=== PATIENT | female | born 1950 | race Caucasian/White ===

== ENCOUNTER 2020-01-18 14:10 | Outpatient (CLI) | payer MEDICARE, OTHER, SELFPAY ==
--- NOTE | ~2020-01-18 | CT_ITS ---
EXAMINATION: CT lumbar spine wo con DATE: 01/18/2020 14:34 INDICATION: Chronic low back pain. Lumbar radiculopathy. TECHNIQUE: Computed tomography (CT) of the lumbar spine was performed without intravenous contrast. A utomated exposure control and iterative reconstruction technique were employed. The dose-length produ ct was 997.40 mGy-cm. COMPARISON: CT lumbar spine 07/01/2017 FINDINGS: There is a filter in the infrarenal inferior vena cava. There is 5 degrees dextrocurvature of lumbar spine. There is 4 mm anterolisthesis of L3 on L4. Vertebral body heights are normal. There is moderately decreased disc height at L3-L4 and L5-S1. There are changes of interbody fusion at L4-L 5 with interbody device. There are changes of posterior fusion procedure from L4 to S1 with pedicle s crews. The following disc levels are specifically discussed: L1-L2: The disc does not extend beyond the endplate margin. There is mild bilateral facet joint osteo arthritis. There is no neural foraminal stenosis. There is no central canal stenosis. L2-L3: The disc is bulging. There is moderate bilateral facet joint osteoarthritis. There is mild zoltan ateral neural foraminal stenosis. There is mild central canal stenosis. L3-L4: The disc is bulging. There is severe bilateral facet joint osteoarthritis. There is mild bilat eral neural foraminal stenosis. There is mild central canal stenosis. L4-L5: There is no facet joint hypertrophy. There is no neural foraminal stenosis. There is no centra l canal stenosis. L5-S1: The disc does not extend beyond the endplate margin. There is no facet joint hypertrophy. Ther e is no neural foraminal stenosis. There is no central canal stenosis. IMPRESSION: 1. Moderate lumbar spondylosis, stable from 07/01/2017. 2. Anterior fusion procedure at L4-L5 and posterior fusion procedure from L4 to S1. Reviewed, dictated and finalized at location E.
== END 2020-01-18 14:11 | disposition home or self-care (01) ==
PROVIDERS: PCP Family Medicine; Visit Provider Nurse Practitioner Family
DX: M47.26 Other spondylosis with radiculopathy, lumbar region (principal); Z98.1 Arthrodesis status
CPT/HCPCS: 72131

== ENCOUNTER 2020-06-07 11:45 | Outpatient (CLI) | payer MEDICARE, OTHER, SELFPAY ==
[2020-06-07 12:20] LABS: Hematocrit 38.9 % (37.0-47.0); Hemoglobin 12.3 g/dL (12.0-15.0); Mean Corpuscular HGB Conc 31.6 g/dl (32-36); Mean Corpuscular Hemoglobin 30.1 pg (26-34); Mean Corpuscular Volume 95.1 fl (80-100); Mean Platelet Volume 9.1 fl (7.4-10.4); Platelet Count Result 388 k/mm3 (150-375); Red Blood Count 4.09 M/mm3 (4.2-5.4); Red Cell Distribution Width 12.4 % (11.5-14.5); White Blood Count 5.9 K/mm3 (4.5-10.0)
[2020-06-07 12:31] LABS: Anion Gap 6 mmol/L (8-16); Blood Urea Nitrogen 20 mg/dL (7-17); Calcium 9.8 mg/dL (8.4-10.2); Carbon Dioxide 31 mmol/L (22-30); Chloride 102 mmol/L (98-107); Cholesterol 168 mg/dL (0-200); Estimated Glomerular Filt Rate 55; Glucose 93 mg/dL (65-105); HDL Direct 82 mg/dL; Potassium 4.8 mmol/L (3.4-5.0); Sodium 139 mmol/L (137-145); Triglycerides 135 mg/dL (<150)
[2020-06-07 12:42] LABS: LDL Cholesterol Direct 51 mg/dL
== END 2020-06-07 11:46 | disposition home or self-care (01) ==
PROVIDERS: PCP Family Medicine; Visit Provider Nurse Practitioner Family
DX: I10 Essential (primary) hypertension (principal)
CPT/HCPCS: 36415; 80048; 80061; 84443; 85027

== ENCOUNTER 2020-07-22 13:56 | Outpatient (CLI) | payer MEDICARE, OTHER, SELFPAY ==
[2020-07-22 14:30] LABS: Hemoglobin 11.7 g/dL (12.0-15.0); Mean Corpuscular HGB Conc 31.6 g/dl (32-36); Mean Corpuscular Hemoglobin 30.7 pg (26-34); Mean Corpuscular Volume 97.1 fl (80-100); Platelet Count Result 313 k/mm3 (150-375); Red Blood Count 3.81 M/mm3 (4.2-5.4); Red Cell Distribution Width 12.9 % (11.5-14.5); White Blood Count 5.8 K/mm3 (4.5-10.0)
[2020-07-22 14:41] LABS: Anion Gap 8 mmol/L (8-16); Blood Urea Nitrogen 19 mg/dL (7-17); Calcium 9.2 mg/dL (8.4-10.2); Carbon Dioxide 29 mmol/L (22-30); Chloride 101 mmol/L (98-107); Estimated Glomerular Filt Rate 55; Glucose 98 mg/dL (65-105); Potassium 4.6 mmol/L (3.4-5.0); Sodium 138 mmol/L (137-145)
== END 2020-07-22 13:57 | disposition home or self-care (01) ==
PROVIDERS: PCP Family Medicine; Visit Provider Nurse Practitioner Family
DX: N28.9 Disorder of kidney and ureter, unspecified (principal); R79.89 Other specified abnormal findings of blood chemistry
CPT/HCPCS: 36415; 80048; 85027

== ENCOUNTER 2020-11-24 14:18 | Outpatient (CLI) | payer MEDICARE, OTHER, SELFPAY ==
[2020-11-24 14:47] LABS: Anion Gap 7 mmol/L (8-16); Blood Urea Nitrogen 19 mg/dL (7-17); Calcium 9.2 mg/dL (8.4-10.2); Carbon Dioxide 27 mmol/L (22-30); Chloride 105 mmol/L (98-107); Estimated Glomerular Filt Rate 49; Glucose 117 mg/dL (65-105); Potassium 4.6 mmol/L (3.4-5.0); Sodium 139 mmol/L (137-145)
[2020-11-24 14:50] LABS: Rheumatoid Factor < 12.0 IU/ML (<12)
== END 2020-11-24 14:19 | disposition home or self-care (01) ==
PROVIDERS: PCP Family Medicine; Visit Provider Nurse Practitioner Family
DX: M19.049 Primary osteoarthritis, unspecified hand (principal); N28.9 Disorder of kidney and ureter, unspecified
CPT/HCPCS: 36415; 80048; 86038; 86430

== ENCOUNTER 2021-01-03 15:26 | Outpatient (CLI) | payer MEDICARE, OTHER, SELFPAY ==
[2021-01-03 16:29] LABS: Anion Gap 9 mmol/L (8-16); Blood Urea Nitrogen 22 mg/dL (7-17); Calcium 9.6 mg/dL (8.4-10.2); Carbon Dioxide 24 mmol/L (22-30); Chloride 103 mmol/L (98-107); Estimated Glomerular Filt Rate 49; Glucose 90 mg/dL (65-105); Potassium 5.3 mmol/L (3.4-5.0); Sodium 136 mmol/L (137-145)
== END 2021-01-03 15:27 | disposition home or self-care (01) ==
PROVIDERS: PCP Family Medicine; Visit Provider Nurse Practitioner Family
DX: N28.9 Disorder of kidney and ureter, unspecified (principal)
CPT/HCPCS: 36415; 80048

== ENCOUNTER 2021-04-28 13:59 | Outpatient (CLI) | payer MEDICARE, OTHER, SELFPAY ==
[2021-04-28 14:33] LABS: Anion Gap 9 mmol/L (8-16); Blood Urea Nitrogen 19 mg/dL (7-17); Calcium 9.3 mg/dL (8.4-10.2); Carbon Dioxide 24 mmol/L (22-30); Chloride 104 mmol/L (98-107); Estimated Glomerular Filt Rate 55; Glucose 95 mg/dL (65-110); Potassium 4.6 mmol/L (3.4-5.0); Sodium 137 mmol/L (137-145)
== END 2021-04-28 14:00 | disposition home or self-care (01) ==
LOC: ANHLAB 14:02
PROVIDERS: PCP Family Medicine; Visit Provider Physician Assistant Medical
DX: N28.9 Disorder of kidney and ureter, unspecified (principal)
CPT/HCPCS: 36415; 80048

== ENCOUNTER 2021-08-10 13:44 | Outpatient (CLI) | payer MEDICARE, OTHER, SELFPAY ==
[2021-08-10 14:18] LABS: Anion Gap 8 mmol/L (8-16); Blood Urea Nitrogen 17 mg/dL (7-17); Calcium 9.4 mg/dL (8.4-10.2); Carbon Dioxide 26 mmol/L (22-30); Chloride 103 mmol/L (98-107); Estimated Glomerular Filt Rate 45; Glucose 122 mg/dL (65-110); Potassium 4.3 mmol/L (3.4-5.0); Sodium 137 mmol/L (137-145)
== END 2021-08-10 13:45 | disposition home or self-care (01) ==
LOC: ANHLAB 13:46
PROVIDERS: PCP Family Medicine; Visit Provider Physician Assistant Medical
DX: N28.9 Disorder of kidney and ureter, unspecified (principal)
CPT/HCPCS: 36415; 80048

== ENCOUNTER 2021-09-08 13:50 | Outpatient (CLI) | payer MEDICARE, OTHER, SELFPAY ==
[2021-09-08 14:56] LABS: Anion Gap 4 mmol/L (8-16); Blood Urea Nitrogen 18 mg/dL (7-17); Calcium 9.3 mg/dL (8.4-10.2); Carbon Dioxide 28 mmol/L (22-30); Chloride 102 mmol/L (98-107); Estimated Glomerular Filt Rate 49; Glucose 94 mg/dL (65-110); Potassium 4.8 mmol/L (3.4-5.0); Sodium 134 mmol/L (137-145)
== END 2021-09-08 13:51 | disposition home or self-care (01) ==
PROVIDERS: PCP Family Medicine; Visit Provider Nurse Practitioner Family
DX: N28.9 Disorder of kidney and ureter, unspecified (principal)
CPT/HCPCS: 36415; 80048

== ENCOUNTER 2021-10-10 11:17 | Outpatient (CLI) | payer MEDICARE, OTHER, SELFPAY ==
--- NOTE | ~2021-10-10 | US_ITS ---
US renal BI 10/10/2021 11:42 Procedure: Realtime transabdominal ultrasound of the kidneys and bladder. Indication: Chronic kidney disease Comparison: No prior studies for comparison. Findings: Renal echotexture is normal bilaterally without hydronephrosis, contour deforming mass or r enal calculus. The right kidney measures 10.1 cm and left kidney measures 9.5 cm. Bladder within nor mal limits. Impression: 1: Unremarkable renal ultrasound. No stones, masses or hydronephrosis. Reviewed, dictated and finalized at location A. T BREEDER Impression: 1: Unremarkable renal ultrasound. No stones, masses or hydronephrosis.
[2021-10-10 12:22] LABS: Hematocrit 34.3 % (37.0-47.0); Hemoglobin 10.9 g/dL (12.0-15.0); Mean Corpuscular HGB Conc 31.8 g/dl (32-36); Mean Corpuscular Hemoglobin 29.4 pg (26-34); Mean Corpuscular Volume 92.5 fl (80-100); Mean Platelet Volume 8.9 fl (7.4-10.4); Platelet Count Result 330 k/mm3 (150-375); Red Blood Count 3.71 M/mm3 (4.2-5.4); Red Cell Distribution Width 14.1 % (11.5-14.5)
[2021-10-10 12:32] LABS: Creatinine Urine 209.4 mg/dL
[2021-10-10 12:34] LABS: Albumin Level 4.5 g/dL (3.5-5.1); Anion Gap 8 mmol/L (8-16); Blood Urea Nitrogen 17 mg/dL (7-17); Calcium 8.9 mg/dL (8.4-10.2); Carbon Dioxide 25 mmol/L (22-30); Chloride 100 mmol/L (98-107); Estimated Glomerular Filt Rate 45; Glucose 92 mg/dL (65-110); Phosphorus 4.4 mg/dL (2.5-4.5); Potassium 4.5 mmol/L (3.4-5.0); Sodium 133 mmol/L (137-145)
[2021-10-10 12:38] LABS: Total Protein Urine Random < 5 mg/dL; Ur Ttl Prot Creatinine Ratio < 0.02 mg/mg (0-0.20)
[2021-10-10 12:41] LABS: Complement C3 135 mg/dL (88-165)
[2021-10-10 12:46] LABS: Parathyroid Intact 87.2 pg/mL (7.5-53.5)
[2021-10-10 12:49] LABS: Erythrocyte Sedimentation Rate 34 mm/hr (0-20)
[2021-10-10 14:53] LABS: Add Urine Microscopic? YES; Appearance Urine Clear (Clear); Bilirubin Urine Negative (Negative); Blood Urine Negative (Negative); Color Urine Yellow (Yellow); Glucose Urine UA Negative (Negative); Ketones Urine Trace mg/dL (Negative); Leukocyte Esterase Ur 1+ LEU/UL (Negative); Mucus Urine Rare /lpf; Nitrate Urine Negative (Negative); Protein Urine Negative (Negative); RBC Urine 0-2 /hpf (0-2); Specific Grav Ur 1.025 (1.001-1.035); Squamous Epithelial Cell Urine Rare /hpf (Few); Urobilinogen Urine Negative mg/dL (<2.0); WBC Urine 0-3 /hpf
[2021-10-12 15:58] LABS: Kappa\\Lambda Light Chains 1.39 (0.26-1.65); Lambda Light Chain 12.4 mg/L (5.7-26.3)
[2021-10-13 18:36] LABS: Complement Total CH50 >60 U/mL (31-60)
== END 2021-10-10 11:18 | disposition home or self-care (01) ==
PROVIDERS: PCP Family Medicine; Visit Provider Internal Medicine Nephrology
DX: N18.31 Chronic kidney disease, stage 3a (principal)
CPT/HCPCS: 36415; 76775; 80069; 81001; 82570; 83883; 83970; 84156; 85027; 85652; 86038; 86160; 86162; 86334

== ENCOUNTER 2021-10-12 13:50 | Outpatient (NON) | payer MEDICARE, OTHER, SELFPAY ==
[2021-10-21 16:40] LABS: Creat 24 Hr 1.43 g/24 h (0.50-2.15); Measured Kappa Chains <1.00 mg/dL (<2.00); Measured Lambda Chains <1.00 mg/dL (<2.00); Pro/Creat Ratio 111 mg/g creat (<=114)
[2021-10-24 15:22] LABS: Protein,total, 24 Hr Ur 159 mg/24h
== END 2021-10-12 13:51 | disposition home or self-care (01) ==
PROVIDERS: PCP Family Medicine; Visit Provider Internal Medicine Nephrology
DX: N18.31 Chronic kidney disease, stage 3a (principal)
CPT/HCPCS: 86335

== ENCOUNTER 2021-12-15 13:55 | Outpatient (CLI) | payer MEDICARE, OTHER, SELFPAY ==
[2021-12-15 14:39] LABS: Albumin Level 4.4 g/dL (3.5-5.1); Anion Gap 7 mmol/L (8-16); Blood Urea Nitrogen 20 mg/dL (7-17); Calcium 9.3 mg/dL (8.4-10.2); Carbon Dioxide 27 mmol/L (22-30); Chloride 101 mmol/L (98-107); Estimated Glomerular Filt Rate 45; Glucose 93 mg/dL (65-110); Phosphorus 4.2 mg/dL (2.5-4.5); Potassium 4.4 mmol/L (3.4-5.0); Sodium 135 mmol/L (137-145)
[2021-12-15 15:13] LABS: Creatinine Urine 77.1 mg/dL; Total Protein Urine Random 9 mg/dL; Ur Ttl Prot Creatinine Ratio 0.12 mg/mg (0-0.20)
== END 2021-12-15 13:56 | disposition home or self-care (01) ==
PROVIDERS: PCP Family Medicine; Visit Provider Internal Medicine Nephrology
DX: N18.31 Chronic kidney disease, stage 3a (principal)
CPT/HCPCS: 36415; 80069; 82570; 84156

== ENCOUNTER 2022-11-22 15:26 | Outpatient (CLI) | payer MEDICARE, OTHER, SELFPAY ==
[2022-11-22 16:03] LABS: Hematocrit 31.2 % (37.0-47.0); Hemoglobin 9.1 g/dL (12.0-15.0); Mean Corpuscular HGB Conc 29.2 g/dl (32-36); Mean Corpuscular Hemoglobin 25.1 pg (26-34); Mean Platelet Volume 8.9 fl (7.4-10.4); Platelet Count Result 402 k/mm3 (150-375); Red Blood Count 3.63 M/mm3 (4.2-5.4); Red Cell Distribution Width 15.7 % (11.5-14.5); White Blood Count 5.9 K/mm3 (4.5-10.0)
[2022-11-22 17:05] LABS: Albumin Level 4.5 g/dL (3.5-5.1); Anion Gap 5 mmol/L (8-16); Blood Urea Nitrogen 18 mg/dL (7-17); Calcium 9.6 mg/dL (8.4-10.2); Carbon Dioxide 29 mmol/L (22-30); Chloride 102 mmol/L (98-107); Estimated Glomerular Filt Rate 49; Glucose 88 mg/dL (65-110); Phosphorus 3.8 mg/dL (2.5-4.5); Potassium 4.8 mmol/L (3.4-5.0); Sodium 136 mmol/L (137-145)
[2022-11-22 17:24] LABS: Parathyroid Intact 48.7 pg/mL (7.5-53.5)
[2022-11-22 17:34] LABS: Vitamin D 25 Hydroxy 89.4 ng/mL
[2022-11-22 18:13] LABS: Creatinine Urine 72.4 mg/dL; Total Protein Urine Random 9 mg/dL; Ur Ttl Prot Creatinine Ratio 0.12 mg/mg (0-0.20)
== END 2022-11-22 15:27 | disposition home or self-care (01) ==
LOC: ANHLAB 15:32
PROVIDERS: PCP Family Medicine; Visit Provider Internal Medicine Nephrology
DX: E21.1 Secondary hyperparathyroidism, not elsewhere classified (principal); N28.9 Disorder of kidney and ureter, unspecified; N18.31 Chronic kidney disease, stage 3a
CPT/HCPCS: 36415; 80069; 82306; 82570; 83970; 84156; 85027

== ENCOUNTER 2023-01-21 14:10 | Outpatient (CLI) | payer MEDICARE, OTHER, SELFPAY ==
--- NOTE | ~2023-01-21 | CT_ITS ---
EXAMINATION: CT LE RT wo con DATE: 01/21/2023 14:47 INDICATION: Right knee osteoarthritis. Preop planning. TECHNIQUE: Computed tomography (CT) of the right lower limb was performed without intravenous contras t. Automated exposure control and iterative reconstruction technique were employed. The dose-length p roduct was 1816.99 mGy-cm. COMPARISON: Right knee radiographs 12/06/2022 FINDINGS: The right hip demonstrates normal bone alignment. There is mild right hip osteoarthritis. T he right knee demonstrates an insufficiency fracture of medial tibial plateau with up to 2 mm cortica l depression. There is severe osteoarthritis of medial and lateral compartments and moderate osteoart hritis of patellofemoral compartment. There is a moderate-sized knee joint effusion. There is a moder ate-sized Chase's cyst. IMPRESSION: 1. Severe right knee osteoarthritis. 2. Insufficiency fracture of medial tibial plateau with up to 2 mm cortical depression. 3. Moderate-sized right knee joint effusion. 4. Moderate-sized Chase's cyst. 5. Mild right hip osteoarthritis. Reviewed, dictated and finalized at location A. IMPRESSION: 1. Severe right knee osteoarthritis. 2. Insufficiency fracture of medial tibial plateau with up to 2 mm cortical dep ression. 3. Moderate-sized right knee joint effusion. 4. Moderate-sized Chase's cyst. 5. Mild right hip osteoarthritis.
--- NOTE | 2023-01-21 14:54 | ECG_ITS ---
Measurements Intervals [place] Rate: 81 P: -69 GA: 149 QRS: -5 QRSD: 129 T: 38 QT: 389 QTc: 454 Interpretive Statements SINUS RHYTHM BASELINE ARTIFACT RIGHT BUNDLE BRANCH BLOCK ABNORMAL ECG NO PREVIOUS ECG AVAILABLE FOR COMPARISON Electronically Signed On 01-21-2023 17:17:54 CDT by Rickey Fuentes M.D.
[2023-01-21 15:28] LABS: Hematocrit 31.1 % (37.0-47.0); Hemoglobin 9.2 g/dL (12.0-15.0); Mean Corpuscular HGB Conc 29.6 g/dl (32-36); Mean Corpuscular Hemoglobin 24.7 pg (26-34); Mean Corpuscular Volume 83.4 fl (80-100); Platelet Count Result 429 k/mm3 (150-375); Red Blood Count 3.73 M/mm3 (4.2-5.4); Red Cell Distribution Width 16.1 % (11.5-14.5); White Blood Count 8.4 K/mm3 (4.5-10.0)
[2023-01-21 15:38] LABS: Albumin Level 4.5 g/dL (3.5-5.1); Estimated Glomerular Filt Rate 40; Glucose 94 mg/dL (65-110)
[2023-01-21 16:04] LABS: Hemoglobin A1C 5.3 % (<5.7)
[2023-01-21 16:09] LABS: Cortisol Random 8.25 ug/dL
[2023-01-21 16:20] LABS: Vitamin D 25 Hydroxy 79.4 ng/mL
[2023-01-21 17:19] LABS: Urine Cotinine NEGATIVE
[2023-01-21 22:10] LABS: Creatinine Urine 257.6 mg/dL; Total Protein Urine Random 12 mg/dL; Ur Ttl Prot Creatinine Ratio 0.05 mg/mg (0-0.20)
== END 2023-01-21 14:11 | disposition home or self-care (01) ==
PROVIDERS: Internal Medicine Nephrology; PCP Family Medicine; Visit Provider Orthopaedic Surgery
DX: Z01.812 Encounter for preprocedural laboratory examination (principal); Z01.810 Encounter for preprocedural cardiovascular examination; M17.11 Unilateral primary osteoarthritis, right knee; E78.5 Hyperlipidemia, unspecified; N28.9 Disorder of kidney and ureter, unspecified; R79.89 Other specified abnormal findings of blood chemistry; E87.5 Hyperkalemia; E87.1 Hypo-osmolality and hyponatremia; E21.1 Secondary hyperparathyroidism, not elsewhere classified; N18.31 Chronic kidney disease, stage 3a; I12.9 Hypertensive chronic kidney disease with stage 1 through stage 4 chronic kidney disease, or unspecified chronic kidney disease; M25.461 Effusion, right knee; M71.21 Synovial cyst of popliteal space [Baker], right knee; M16.11 Unilateral primary osteoarthritis, right hip; I45.10 Unspecified right bundle-branch block
CPT/HCPCS: 36415; 73700; 80307; 82040; 82306; 82533; 82565; 82570; 82947; 83036; 84156; 85027; 93005

== ENCOUNTER 2023-03-13 11:29 | Outpatient (CLI) | payer MEDICARE, OTHER, SELFPAY ==
[2023-03-13 12:58] LABS: Basophils Percent Auto 0.6 % (0.2-1.2); Eosinophils Absolute Auto 0.5 K/mm3 (0-0.3); Eosinophils Percent Auto 6.4 % (0-4.4); Hematocrit 34.1 % (37.0-47.0); Hemoglobin 10.2 g/dL (12.0-15.0); Immature Granulocyte Absolute 0.01 K/mm3 (0.00-0.031); Immature Granulocyte Percent A 0.1 % (0-0.5); Lymphocytes Absolute Auto 1.77 K/mm3 (0.9-3.2); Lymphocytes Percent Auto 25.4 % (18.3-44.2); Mean Corpuscular HGB Conc 29.9 g/dl (32-36); Mean Corpuscular Hemoglobin 26.6 pg (26-34); Mean Corpuscular Volume 88.8 fl (80-100); Mean Platelet Volume 8.7 fl (7.4-10.4); Monocytes Absolute Auto 0.7 K/mm3 (0.1-0.6); Monocytes Percent Auto 9.7 % (2.6-8.5); Neutrophils Percent Auto 57.8 % (45.5-73.1); Platelet Count Result 369 k/mm3 (150-375); Red Blood Count 3.84 M/mm3 (4.2-5.4); Red Cell Distribution Width 18.7 % (11.5-14.5)
[2023-03-13 12:59] LABS: Albumin Level 4.5 g/dL (3.5-5.1); Urine Cotinine NEGATIVE
[2023-03-13 13:01] LABS: Sodium 134 mmol/L (137-145)
[2023-03-13 13:02] LABS: Anion Gap 8 mmol/L (8-16); Blood Urea Nitrogen 22 mg/dL (7-17); Calcium 9.3 mg/dL (8.4-10.2); Carbon Dioxide 26 mmol/L (22-30); Chloride 100 mmol/L (98-107); Estimated Glomerular Filt Rate 37; Glucose 95 mg/dL (65-110); Potassium 4.6 mmol/L (3.4-5.0)
[2023-03-13 13:04] LABS: INR 0.9; Partial Thromboplastin Time 26.4 SECONDS (22.3-36.8); Prothrombin Time 12.7 Seconds (11.1-14.7)
[2023-03-13 14:07] LABS: Anisocytosis 1+ (NORMAL); Hypochromasia 1+ (NORMAL); Poikilocytosis 1+ (NORMAL); Schistocytes None Seen (NORMAL)
== END 2023-03-13 11:30 | disposition home or self-care (01) ==
LOC: ANHSURGERY 11:36
PROVIDERS: Anesthesiology; PCP Family Medicine; Visit Provider Orthopaedic Surgery
DX: Z01.818 Encounter for other preprocedural examination (principal); N18.9 Chronic kidney disease, unspecified; M17.11 Unilateral primary osteoarthritis, right knee
CPT/HCPCS: 80048; 80307; 82040; 85025; 85610; 85730; 87081

== ENCOUNTER 2023-04-02 01:40 | Day surgery (SDC) | payer MEDICARE, OTHER, SELFPAY ==
[2023-03-13 11:33] VITALS: BP 116/70; PULSE 84; RESP 20; TEMP 36.6; O2SAT 100; BMI 36.1
--- NOTE | 2023-03-13 11:33 | PC.NURSE ---
PRE-OP INSTRUCTIONS, PLEASE READ CAREFULLY Report to the Outpatient Waiting Room, entrance under the green pavilion located off [facility], at time _0600_ on date _04/02/23_. Planned Procedure Time: _0730_. PACK A SMALL OVERNIGHT BAG AND LEAVE IN THE CAR ALONG WITH YOUR WALKER Time changes happen often and if your time is changed the preop area will call you the afternoon before. - You and your visitor will be asked to self-screen and do not enter if you have any COVID symptoms. - A mask is optional within the hospital at this time. -VISITING HOURS 8AM-8PM Patients may have clear liquids (water, carbonated beverages, clear teas, apple juice) until 3 hours prior to surgery (0430 AM) with a maximum of 20 ounces. - No food from midnight until time of surgery Take the following medications with a SIP of water the morning of surgery: _DILTIAZEM, INHALER, & TRAMADOL IF NEEDED_ DO NOT STOP ANY OF YOUR OTHER PRESCRIPTION MEDICATIONS PRIOR TO SURGERY ?EXCEPT THE FOLLOWING Medications to discontinue per DR. SARKAR - _ASPIRIN 7 DAYS PRIOR TO SURGERY, Date to take last dose 03/25/23_ Medications to discontinue per ANESTHESIA - _MULTIVITAMIN & SUPPLEMENTS 3 DAYS PRIOR TO SURGERY, Date to take last dose 03/29/23_ Please no make-up, nail beninese, hairspray, perfume, deodorant, or body powder the day of surgery. No jewelry (including any body piercings) or valuables the day of surgery, leave them at home. Please take a shower or bath the night before, or the morning of, surgery with an antibacterial soap. Wear comfortable, loose fitting clothing. - Jewelry must be removed prior to entering the operating room. Rings and piercings that are not removed may be cut off. - The hospital will not accept responsibility for valuables. - Please leave all valuables, including medications, at home the day of surgery. If you are going home after surgery, a licensed straddle truck driver must drive you home. - NO public transportation without another adult if you receive anesthesia. - We recommend that an adult stay with you for 24 hours following discharge. - We also recommend that you do not drive, make important decision, drink alcoholic beverages, or take any drugs that were not prescribed by your health care provider for at least 24 hours after your discharge time. Follow any additional instructions given to you from your surgeon. If you or anyone in your household have experienced Covid symptoms in the past week, please notify your surgeon or the nurse liaison at the phone number below for possible testing. Instructions given to _PATIENT__and asked if any additional questions and then verbalized understanding. Patient advised to call surgeon office or pre surgery nurse liaison [phone] if any additional questions.
[2023-04-02] VITALS (17 sets, daily range): BP systolic 96–120; BP diastolic 54–72; PULSE 78–96; RESP 10–20; TEMP 36–37.3; O2SAT 93–98
--- NOTE | ~2023-04-02 | XR_ITS ---
EXAMINATION: [id number] DATE: 04/03/2023 08:26 INDICATION: Total right knee arthroplasty. Postop. TECHNIQUE: 2 views of right knee were obtained. COMPARISON: None. FINDINGS: There is a total right knee arthroplasty with patellar resurfacing in near-anatomic alignme nt. No fracture. There is gas in the soft tissues, consistent with recent surgery. IMPRESSION: 1. Total right knee arthroplasty in near-anatomic alignment. Reviewed, dictated and finalized at location A.
[2023-04-02] MEDS: ACETAMINOPHEN 500 MG TABLET 1000 MG PO ×2 (06:08→17:21)
[2023-04-02] MEDS: LACTATED RINGERS 1,000 ML 30 ML IV CONT ×2 (06:40→10:05)
[2023-04-02] MEDS: TRANEXAMIC ACID 1,000MG/ISO100 1,000 MG/100 ML BAG 200 MG IVPB (06:55)
--- NOTE | 2023-04-02 07:07 | WPDANESEPPF ---
Anes - Initial Pre Proc Eval Procedure: Operation Date: 04/02/23 07:30 Proposed Procedures p Right Custom Total Knee Arthroplasty - Zan Melgoza MD Date/Time: 04/02/23 07:07 Surgeon: Zan Melgoza MD Pre Op Diagnosis: Prim OA Rt Knee Patient Data Age: 72 Gender: F Height: 1.68 m Weight: 100.1 kg Last Vital Signs Temp 36.6 C 03/13/23 11:33 Pulse 84 03/13/23 11:33 Resp 20 03/13/23 11:33 BP 116/70 03/13/23 11:33 Pulse Ox 100 03/13/23 11:33 O2 Del Method Room Air 03/13/23 11:33 Allergies Allergy/AdvReac Type Severity Reaction Status Date / Time prochlorperazine AdvReac Unknown Rash Verified 03/21/23 14:51 atorvastatin [From Lipitor] AdvReac IRREGULAR Verified 03/21/23 14:51 HEAR RATE BETA BLOCKERS AdvReac Unknown BRINGS ON Uncoded 03/13/23 11:54 ASTHMA ATTACKS Home Medications Medication Instructions Recorded Confirmed Type albuterol sulfate 90 mcg/actuation 1 inh inhalation Q4-6H PRN 05/23/20 03/13/23 Rx breath activated powder inhaler shortness of breath #1 ea aspirin 325 mg tablet 325 mg PO DAILY 05/23/20 04/02/23 History diltiazem HCl 240 mg 240 mg PO DAILY #90 caps 03/29/22 04/02/23 Rx capsule,extended release 24 hr, controlled (DILT-XR) lisinopril 20 mg tablet 20 mg PO DAILY #90 tabs 03/29/22 04/02/23 Rx rosuvastatin 20 mg tablet (Crestor) 20 mg PO DAILY #90 tabs 03/29/22 04/02/23 Rx spironolactone 25 mg tablet 25 mg PO DAILY #90 tabs 03/29/22 04/02/23 Rx tramadol 50 mg tablet 50 mg PO Q6H PRN pain #120 tabs 01/28/23 04/02/23 Rx budesonide-formoterol HFA 80 2 puff inhalation Q12H #6.9 grams 02/04/23 04/02/23 Rx mcg-4.5 mcg/actuation aerosol inhaler (Symbicort) escitalopram oxalate 20 mg tablet 20 mg PO DAILY #90 tabs 02/04/23 04/02/23 Rx cholecalciferol (vitamin D3) 5,000 unit DAILY 03/13/23 04/02/23 History fluticasone propionate 50 1 spray intranasal HS 03/13/23 04/02/23 History mcg/actuation nasal spray,suspension iron 25 mg DAILY 03/13/23 04/02/23 History multivitamin 1 tablet DAILY 03/13/23 04/02/23 History omega 9-pqb-jyv-fish oil 1,200 mg 1 cap PO DAILY 03/13/23 04/02/23 History (144 mg-216 mg) capsule (Fish Oil) tamarind seed extract and turmeric 1 tablet PO DAILY 03/13/23 04/02/23 History root extract 250 mg tablet (Move Free Ultra Turmeric-Tamarind) Patient hx anesthesia problems: none Family hx anesthesia problems: none Results Review: All pre-operative results and documents have been reviewed as part of the pre-operative evaluation. [facility] Past Medical History Medical History Chronic kidney disease, stage 2 (mild) Fractured elbow Function kidney decreased Hx of deep venous thrombosis Low hemoglobin Mass of right kidney Family History Family History Father Hypertension Cerebrovascular accident Sibling Family history of diabetes mellitus in first degree relative Mother Hypertension Family history of diabetes mellitus in first degree relative Social History Social History Smoking packs per day: 0.5 Smoking cigarettes per day: 10.0 Years smoked: 6 Smoking pack-years: 3.00 Smoking status: Former smoker Tobacco type: cigarettes Second hand tobacco smoke exposure: No Smoking end date: 08/12/13 Additional smoking assessment comments: PT DENIES ALL FORMS OF TOBACCO USE Alcohol intake: current Drinks per week: 7 Alcohol use details: 1 DRINK/NOC Substance use: current Substance use type: marijuana Other substance usage details: 08/13 GUMMIE @ NOC FOR SLEEP Last use: 03/12/23 Lack of Transportation: No Lack of Food: Never True Current Housing: I Have Housing Concerned About Future Housing: No Difficulty Paying Gas/Electric Bills: No Difficulty Paying for Meds: No Currently Une
--- NOTE | 2023-04-02 07:11 | WPDHPUPDATE1 ---
History and Physical Update Update Date/Time: 04/02/23 07:11 History and Physical has been reviewed, including an updated exam of the patient. There are NO changes in the patient's condition. Risks, benefits, and alternatives have been discussed and questions answered. Patient agrees to proceed with procedure.
[2023-04-02] MEDS: ceFAZolin 2 GM/D5W 50 ML 2 GM/50 ML BAG IVPB ×2 (07:30→16:48)
--- NOTE | 2023-04-02 10:14 | P.OP_ITS ---
Procedure Note - Detailed Date of Procedure 04/02/23 Pre-op Diagnosis Prim OA Rt Knee Post-op Diagnosis Same Procedure Performed Total knee arthroplasty, right. Surgeon Zan Melgoza MD Charger Operator Helper Mary Marin PA-C Anesthesia General and Regional (Subsartorial block.) Findings The medial bone cyst was contained. The-2 tibial cut was appropriate. Moderate medial release. Slight PCL release. Significant hyperemia and redness of the synovium was encountered. Description of Procedure Preoperative antibiotics were given. The limb was prepped and draped in the usual sterile fashion with a well-padded tourniquet high on the thigh. The limb was exsanguinated and the tourniquet inflated to 300 mmHg, during exposure and prior to tibial preparation and cementation. A longitudinal incision was created just medial to the patella. A trivector approach to the knee was performed. Arthrotomy was taken down through the joint capsule. No significant releases were initially taken. The femur was exposed and the F1 jig was applied. The coring tool was used to remove the cartilage for the F2 jig to sit flush with the bone. The jig was pinned and the distal cut carefully taken. Caliper measurements confirmed appropriate bony resections according to the preoperative templated plan. The F4 cutting jig for the femur was applied, at the standard rotation. The AP and anterior chamfer cuts were taken. The F5 jig was applied and the posterior chamfer cuts were taken. The tibia was prepared using the T1 jig, after removing cartilage for the jig contact points. Proper alignment was checked with the alignment misti. The tibia was cut using the T1u guide. Gap balancing was performed. Gap measurements were taken and the knee was trialed. Excellent alignment and soft tissue balancing was confirmed. The posterior cruciate ligament was recessed along the proximal tibia. The patella was cut for resurfacing. Three lug holes were drilled. Meniscal remnants were removed. The trial components were assembled. Excellent range of motion and proper soft tissue balancing were confirmed throughout the full range of motion. Patellar tracking was excellent. The knee was copiously irrigated periodically throughout the procedure. The real implants were cemented into position. Excess cement was carefully removed. The wound was closed in layers with interrupted #1 Vicryl suture, #2 strata fix suture, 2-0 strata fix suture, 3-0 strata fix suture. Steri-Strips placed on the skin with the knee flexed. Sterile bulky dressing applied. The patient was brought to the recovery room in stable condition. There were no complications. Physician plumber assistant, Mary Marin PA-C, required for surgery; including patient positioning, draping, tissue retraction, maintaining instrument pos ition, cement removal, wound closure, and dressing placement. Implants Conformis Imprint total knee arthroplasty. Cemented. Cruciate retaining. 7 mm in sert. 35 mm oval patella. Estimated Blood Loss -100.0 Tourniquet Time 47 Drains No Complications No immediate complications Condition Stable Disposition PACU [facility] Billing Surgery - Charge Forward: Surgery Billing
[2023-04-02] MEDS: fentaNYL CITRATE INJ (*CRX) 100 MCG/2 ML VIAL 25 MCG IV PUSH ×2 (10:26→10:39)
--- NOTE | 2023-04-02 10:30 | WPDANESPNB ---
Anes - Peripheral Nerve Block Date/Time: 04/02/23 10:30 I have discussed with the patient/family/POA the placement of a peripheral nerve block for post-operative pain management, including associated risks, benefits, complications, and side effects. Alternative methods of post-operative analgesia were detailed. Questions were solicited and answers provided to the satisfaction of the patient/family/POA. Time-Out: A pre-procedural Time-Out was completed immediately before starting the procedure and confirmed: Patient Identification, Site, Procedure, Patient Position and the Availability of Requisite Equipment. Clinical Indications: Acute post-operative pain management requested by the operative surgeon. Nerve Block Insertion Note Anes-nerve block: adductor canal right Patient position: supine Skin prep: chlorhexidine Needle: 22 gauge, stimulating, insulated echogenic needle. Needle length: 80 mm Technique: ultrasound Technique comment: done in Pacu Injectate: bupivacaine 0.5% with epi 5 mcg/ml (30ml no epi) and dexamethasone (mg) (4) Observations: tolerated well Complications: none Procedure start time:: 1016 Procedure end time:: 1023
--- NOTE | 2023-04-02 10:42 | SUR.PHASEI ---
1017 - dr. hubbard at bedside administering block
[2023-04-02] MEDS: diphenhydrAMINE HCl INJ 50 MG/ML VIAL 25 MG IV PUSH (10:50)
--- NOTE | 2023-04-02 12:18 | ADMGEN ---
This patient, Minnie Serrato, was admitted to Medical Room 246-01. Patient/family oriented to hospital policies and general routines including ID bracelet, bed and alarms, visiting hours, pain management, procedures, bathroom and other care routines, personal items, smoking policy, room service/diet, and visiting hours. Information on how to activate the Rapid Response Team has been discussed. Patient/Family are encouraged to report perceived risks to care and to ask questions if they do not understand what they are told or what they should do.
[2023-04-02] MEDS: SODIUM CHLORIDE 0.9% IV 1,000 ML 125 ML IV CONT (13:23)
[2023-04-02] MEDS: ROSUVASTATIN 10 MG TABLET 20 MG PO (13:23)
[2023-04-02] MEDS: lisinopriL 20 MG TABLET PO (13:23)
--- NOTE | 2023-04-02 14:47 | PCPTNOTE ---
Attempted PT evaluation, pt working with OT at this time. Will follow.
[2023-04-02] MEDS: FAMOTIDINE 20 MG TABLET PO (20:16)
[2023-04-02] MEDS: SENNA/DOCUSATE SODIUM TABLET 2 TAB PO (20:16)
[2023-04-02] MEDS: oxyCODONE HCL (*CRX) 5 MG TAB IR PO (20:19)
[2023-04-02] MEDS: FLUTICASONE/SALMETEROL 45-21 MCG INHALER 1 PUFF 2 PUFF INHALATION (20:26)
[2023-04-03 00:31] VITALS: BP 110/56; PULSE 81; RESP 18; TEMP 36; O2SAT 98
[2023-04-03] MEDS: ACETAMINOPHEN 500 MG TABLET 1000 MG PO ×3 (00:51→12:20)
[2023-04-03] MEDS: ceFAZolin 2 GM/D5W 50 ML 2 GM/50 ML BAG IVPB ×2 (00:51→09:50)
[2023-04-03 05:31] VITALS: BP 111/59; PULSE 81; RESP 20; TEMP 36; O2SAT 8
[2023-04-03 05:47] VITALS: BP 111/59; PULSE 81; RESP 20; TEMP 36; O2SAT 98
[2023-04-03 06:23] LABS: Hematocrit 30.1 % (37.0-47.0); Hemoglobin 9.1 g/dL (12.0-15.0); Immature Granulocyte Absolute 0.04 K/mm3 (0.00-0.031); Immature Granulocyte Percent A 0.4 % (0-0.5); Lymphocytes Absolute Auto 0.86 K/mm3 (0.9-3.2); Lymphocytes Percent Auto 8.5 % (18.3-44.2); Mean Corpuscular HGB Conc 30.2 g/dl (32-36); Mean Corpuscular Volume 92.6 fl (80-100); Mean Platelet Volume 9.5 fl (7.4-10.4); Monocytes Absolute Auto 1.3 K/mm3 (0.1-0.6); Monocytes Percent Auto 12.5 % (2.6-8.5); Neutrophils Percent Auto 78.6 % (45.5-73.1); Platelet Count Result 263 k/mm3 (150-375); Red Blood Count 3.25 M/mm3 (4.2-5.4); Red Cell Distribution Width 17.8 % (11.5-14.5); White Blood Count 10.1 K/mm3 (4.5-10.0)
[2023-04-03 06:32] LABS: Anion Gap 7 mmol/L (8-16); Blood Urea Nitrogen 27 mg/dL (7-17); Calcium 8.4 mg/dL (8.4-10.2); Carbon Dioxide 23 mmol/L (22-30); Chloride 102 mmol/L (98-107); Estimated CRCL calculation 46 ml/min; Estimated Glomerular Filt Rate 44; Glucose 129 mg/dL (65-110); Potassium 4.7 mmol/L (3.4-5.0); Sodium 132 mmol/L (137-145)
[2023-04-03] MEDS: FLUTICASONE/SALMETEROL 45-21 MCG INHALER 1 PUFF 2 PUFF INHALATION (07:38)
[2023-04-03] MEDS: SENNA/DOCUSATE SODIUM TABLET 2 TAB PO (09:15)
[2023-04-03] MEDS: dilTIAZem HCL CD 240 MG CAP.24HR PO (09:15)
[2023-04-03] MEDS: polyethylene glycoL 3350 17 GM POWD.PACK PO (09:15)
[2023-04-03] MEDS: SPIRONOLACTONE 25 MG TABLET PO (09:16)
[2023-04-03] MEDS: RIVAROXABAN 10 MG TABLET PO (09:16)
[2023-04-03] MEDS: ESCITALOPRAM OXALATE 10 MG TABLET 20 MG PO (09:16)
[2023-04-03] MEDS: FERROUS SULFATE DRIED 142 MG TABCR PO (09:17)
[2023-04-03] MEDS: FAMOTIDINE 20 MG TABLET PO (09:17)
[2023-04-03] MEDS: ROSUVASTATIN 10 MG TABLET 20 MG PO (09:17)
[2023-04-03] MEDS: predniSONE 5 MG TABLET PO (09:17)
[2023-04-03] MEDS: oxyCODONE HCL (*CRX) 5 MG TAB IR PO (09:21)
[2023-04-03 10:00] VITALS: BP 133/58; PULSE 80; RESP 18; TEMP 36.4; O2SAT 99
--- NOTE | 2023-04-03 11:09 | PM.DS ---
DS: Admitting Diagnosis Discharge Date 04/03/23 Admitting Diagnosis Knee osteoarthritis. DS: Discharge Diagnosis Discharge Diagnosis (1) Status post total right knee replacement: Code(s): Z96.651 - Presence of right artificial knee joint Status: Acute Assessment and Plan: Postop day 1: Right total knee arthroplasty. Patient tolerated procedure well. No complications. Pain manageable with pain medication. No numbness or tingling. We had a lengthy discussion regarding postoperative wound care, limitations, expectations, and exercises. Patient shows good understanding. She has had initial physical therapy and is tolerating it well. DVT prophylaxis: Eliquis 5 mg BID for 30 days. Pain medication: Percocet. Patient has followup appointment with Dr. Melgoza in 3 weeks. DS: Summary Hospital Course Reason for hospitalization: Total knee arthroplasty Hospital Course: Patient tolerated procedure well. Has had initial PT/OT. Status at Discharge Functional status at discharge: uses cane/walker Overall status at discharge: patient is progressing back to baseline Time Spent with Patient Time attestation: Total time spent providing and/or coordinating discharge services: Exam Narrative: 72-year-old overweight female. Resting comfortably in chair. Alert and oriented x3. No acute distress. Wearing compression socks bilaterally. Dressing intact. Moderate swelling. Mild ecchymosis. No erythema. No hematoma. Range of motion limited due to pain 5-90. Calf nontender. Neurologic status intact. No varicosities. Distal pulses palpable. DS: Data Data Completed and Pending Labs on day of discharge: Labs from last 24 hours 04/03/23 06:04 WBC 10.1 H RBC 3.25 L Hgb 9.1 L Hct 30.1 L MCV 92.6 MCH 28.0 MCHC 30.2 L RDW 17.8 H Plt Count 263 MPV 9.5 Immature Gran % (Auto) 0.4 Neut % (Auto) 78.6 H Lymph % (Auto) 8.5 L [place] % (Auto) 12.5 H Eos % (Auto) 0.0 Baso % (Auto) 0.0 L Lymph # (Auto) 0.86 L [place] # (Auto) 1.3 H Eos # (Auto) 0.0 Baso # (Auto) 0.0 Abs Immat Gran (auto) 0.04 H Absolute Neuts (auto) 8.0 H Absolute Nucleated RBC 0.0 Nucleated RBC % 0.0 Sodium 132 L Potassium 4.7 Chloride 102 Carbon Dioxide 23 Anion Gap 7 L BUN 27 H Creatinine 1.20 H Estim Creat Clear Calc 46 Estimated GFR 44 L Glucose 129 H Calcium 8.4 Discharge Plan Discharge Patient Disposition: Home, Self-Care Discharge Instructions: See green instruction sheets Stand Alone Forms: General Discharge Instructions Follow-up/Referrals: Mary Marin PA [Physician Occ Ther] - Discharge Medications: New oxycodone-acetaminophen 5-325 mg tablet 1 - 2 tablet PO Q4-6H MDD 6 PRN (Reason: pain) Qty: 30 0RF prednisone 5 mg tablet 5 mg PO DAILY 21 Days Qty: 21 0RF Eliquis 5 mg tablet 5 mg PO BID 30 Days Qty: 60 0RF Continued diltiazem HCl [DILT-XR] 240 mg capsule,ext.rel 24h degradable 240 mg PO DAILY Qty: 90 3RF lisinopril 20 mg tablet 20 mg PO DAILY Qty: 90 3RF rosuvastatin [Crestor] 20 mg tablet 20 mg PO DAILY Qty: 90 3RF spironolactone 25 mg tablet 25 mg PO DAILY Qty: 90 3RF albuterol sulfate 90 mcg/actuation aerosol powdr breath activated 1 inh inhalation Q4-6H PRN (Reason: shortness of breath) Qty: 1 0RF multivitamin Tablet 1 tablet DAILY fluticasone propionate 50 mcg/actuation [place],Suspension 1 spray INTRANASAL HS Rx Instructions: administer into each nostril omega 7-gkh-ixh-fish oil [Fish Oil] 1,200 (144-216) mg Capsule 1 cap PO DAILY tamarind seed-turmeric extract [Move Free Ultra Turmeric-[place]] 250 mg Tablet 1 tablet PO DAILY cholecalciferol (vitamin D3) 5,000 unit DAILY iron 25 mg DAILY tramadol 50 mg tablet 50 mg PO Q6H PRN (Reason: pain) Qty: 120 0RF budesonide-formoterol [Symbicort] 80-4.5 mcg/actuation HFA aerosol i
[2023-04-03 14:00] VITALS: BP 115/56; PULSE 80; RESP 18; TEMP 36.4; O2SAT 99
== END 2023-04-03 15:16 | disposition home or self-care (01) ==
LOC: ANHSURGERY 07:22 → ANH2MED 11:50
PROVIDERS: Physician Assistant Surgical; PCP Family Medicine; Visit Provider Orthopaedic Surgery
PROC: (CPT 27447; principal; 2023-04-02 07:30)
DX: M17.11 Unilateral primary osteoarthritis, right knee (principal); N18.2 Chronic kidney disease, stage 2 (mild); Z79.51 Long term (current) use of inhaled steroids; Z86.718 Personal history of other venous thrombosis and embolism; Z87.891 Personal history of nicotine dependence; E66.9 Obesity, unspecified; Z68.35 Body mass index [BMI] 35.0-35.9, adult
CPT/HCPCS: 27447; 36415; 73560; 80048; 85025; 86850; 86900; 86901; 94640; 97110; 97116; 97161; 97165; 97530; 97535; A9270; C1713; C1776; J0171; J0690; J1100; J1170; J1200; J1885; J2250; J2270; J2371; J2405; J2704; J2795; J3010; J7030; J7120; J7512

== ENCOUNTER 2023-06-07 12:47 | Outpatient (CLI) | payer MEDICARE, OTHER, SELFPAY ==
--- NOTE | ~2023-06-07 | XR_ITS ---
EXAMINATION: XR chest 2V 06/07/2023 12:57 INDICATION: Hyperparathyroidism. PROCEDURE: 2 view chest COMPARISON: 06/23/2016 FINDINGS: The lungs are clear. Pacemaker leads are stable. Status post median sternotomy for CABG. Th e cardiomediastinal silhouette is within normal limits. There are no pleural effusions. There is no pneumothorax suspected. IMPRESSION: 1: NO ACUTE CARDIOPULMONARY DISEASE. Reviewed, dictated and finalized at location B.
[2023-06-07 13:38] LABS: Albumin Level 4.4 g/dL (3.5-5.1); Anion Gap 7 mmol/L (8-16); Blood Urea Nitrogen 20 mg/dL (7-17); Calcium 9.2 mg/dL (8.4-10.2); Carbon Dioxide 25 mmol/L (22-30); Chloride 102 mmol/L (98-107); Estimated Glomerular Filt Rate 49; Glucose 94 mg/dL (65-110); Phosphorus 3.7 mg/dL (2.5-4.5); Potassium 4.4 mmol/L (3.4-5.0); Sodium 134 mmol/L (137-145)
[2023-06-07 18:03] LABS: Parathyroid Intact 71.5 pg/mL (7.5-53.5)
== END 2023-06-07 12:48 | disposition home or self-care (01) ==
PROVIDERS: PCP Family Medicine; Visit Provider Internal Medicine Nephrology
DX: N18.31 Chronic kidney disease, stage 3a (principal); E21.1 Secondary hyperparathyroidism, not elsewhere classified
CPT/HCPCS: 36415; 71046; 80069; 83970

== ENCOUNTER 2023-11-27 14:47 | Outpatient (CLI) | payer MEDICARE, OTHER, SELFPAY ==
[2023-11-27 15:16] LABS: Hemoglobin 12.4 g/dL (12.0-15.0); Mean Corpuscular HGB Conc 31.8 g/dl (32-36); Mean Corpuscular Volume 100.8 fl (80-100); Mean Platelet Volume 9.2 fl (7.4-10.4); Platelet Count Result 292 k/mm3 (150-375); Red Blood Count 3.87 M/mm3 (4.2-5.4); Red Cell Distribution Width 12.2 % (11.5-14.5); White Blood Count 4.8 K/mm3 (4.5-10.0)
[2023-11-27 15:28] LABS: Albumin Level 4.6 g/dL (3.5-5.1); Anion Gap 6 mmol/L (4-12); Blood Urea Nitrogen 20 mg/dL (7-17); Calcium 9.2 mg/dL (8.4-10.2); Carbon Dioxide 26 mmol/L (22-30); Chloride 100 mmol/L (98-107); Estimated Glomerular Filt Rate 55; Glucose 86 mg/dL (65-110); Phosphorus 4.1 mg/dL (2.5-4.5); Potassium 4.7 mmol/L (3.4-5.0); Sodium 132 mmol/L (137-145)
[2023-11-27 15:38] LABS: Parathyroid Intact 122.2 pg/mL (7.5-53.5)
[2023-11-27 16:02] LABS: Creatinine Urine 58.6 mg/dL; Total Protein Urine Random 9 mg/dL; Ur Ttl Prot Creatinine Ratio 0.15 mg/mg (0-0.20)
[2023-11-27 16:07] LABS: Vitamin D 25 Hydroxy 76.3 ng/mL
== END 2023-11-27 14:48 | disposition home or self-care (01) ==
LOC: ANHLAB 14:50
PROVIDERS: PCP Family Medicine; Visit Provider Internal Medicine Nephrology
DX: N28.9 Disorder of kidney and ureter, unspecified (principal); E21.1 Secondary hyperparathyroidism, not elsewhere classified; E87.1 Hypo-osmolality and hyponatremia; N18.31 Chronic kidney disease, stage 3a
CPT/HCPCS: 36415; 80069; 82306; 82570; 83970; 84156; 85027

== ENCOUNTER 2024-04-01 12:21 | Outpatient (CLI) | payer MEDICARE, OTHER, SELFPAY ==
--- NOTE | ~2024-04-01 | XR_ITS ---
XR knee RT 3V Ordering provider: Zan Melgoza MD History: . 1 YR POST OP KNEE REPLACEMENT . Comparison: May 22, 2023 FINDINGS: BONES: No acute fracture or dislocation. JOINT SPACES: Total knee arthroplasty. SOFT TISSUES: Normal. IMPRESSION: No acute osseous abnormality right knee. Total knee arthroplasty. Reviewed, dictated and finalized at location A.
== END 2024-04-01 12:22 | disposition home or self-care (01) ==
PROVIDERS: PCP Family Medicine; Visit Provider Orthopaedic Surgery
DX: Z96.651 Presence of right artificial knee joint (principal)
CPT/HCPCS: 73562

== ENCOUNTER 2024-04-16 09:37 | Outpatient (CLI) | payer MEDICARE, OTHER, SELFPAY ==
--- NOTE | ~2024-04-16 | MM_ITS ---
EXAMINATION: MM screening paolo BI w didier HISTORY: Screening TECHNIQUE: Craniocaudal and mediolateral oblique 3-D tomosynthesis images were obtained and synthetic 2-D images were generated. CAD analysis was submitted and interpreted. COMPARISON: Comparison to multiple prior studies sequentially, with oldest reviewed study dated 04/2016. BREAST PARENCHYMAL COMPOSITION: Not dense: There are scattered areas of fibroglandular density. FINDINGS: There is no evidence of suspicious mass, calcification, or architectural distortion to sugg est malignancy in either breast. There has been no suspicious interval change. IMPRESSION: 1. No mammographic evidence of malignancy. 2. Recommend routine screening mammography in one year. BI-RADS Category 1: Negative Reviewed, dictated and finalized at location B.
== END 2024-04-16 09:38 | disposition home or self-care (01) ==
LOC: ANHIMG 09:37
PROVIDERS: PCP Family Medicine; Visit Provider Family Medicine
DX: Z12.31 Encounter for screening mammogram for malignant neoplasm of breast (principal)
CPT/HCPCS: 77063; 77067

== ENCOUNTER 2024-06-03 13:24 | Outpatient (CLI) | payer MEDICARE, OTHER, SELFPAY ==
[2024-06-03 14:10] LABS: Hematocrit 36.9 % (37.0-47.0); Hemoglobin 11.9 g/dL (12.0-15.0); Mean Corpuscular HGB Conc 32.2 g/dl (32-36); Mean Corpuscular Hemoglobin 32.6 pg (26-34); Mean Corpuscular Volume 101.1 fl (80-100); Mean Platelet Volume 9.3 fl (7.4-10.4); Platelet Count Result 316 k/mm3 (150-375); Red Blood Count 3.65 M/mm3 (4.2-5.4); Red Cell Distribution Width 12.3 % (11.5-14.5); White Blood Count 5.4 K/mm3 (4.5-10.0)
[2024-06-03 14:23] LABS: Albumin Level 4.4 g/dL (3.5-5.1); Anion Gap 10 mmol/L (4-12); Blood Urea Nitrogen 26 mg/dL (7-17); Calcium 9.3 mg/dL (8.4-10.2); Carbon Dioxide 25 mmol/L (22-30); Chloride 101 mmol/L (98-107); Estimated Glomerular Filt Rate 44; Glucose 100 mg/dL (65-110); Phosphorus 3.6 mg/dL (2.5-4.5); Potassium 4.5 mmol/L (3.4-5.0); Sodium 136 mmol/L (137-145)
[2024-06-03 14:26] LABS: Creatinine Urine 60.5 mg/dL; Total Protein Urine Random 11 mg/dL; Ur Ttl Prot Creatinine Ratio 0.18 mg/mg (0-0.20)
[2024-06-03 14:37] LABS: Parathyroid Intact 45.6 pg/mL (14.5-75.2)
== END 2024-06-03 13:25 | disposition home or self-care (01) ==
LOC: ANHLAB 13:26
PROVIDERS: PCP Family Medicine; Visit Provider Internal Medicine Nephrology
DX: N18.31 Chronic kidney disease, stage 3a (principal); N28.9 Disorder of kidney and ureter, unspecified
CPT/HCPCS: 36415; 80069; 82570; 83970; 84156; 85027

== ENCOUNTER 2024-10-20 15:55 | Emergency (ER) | payer MEDICARE, OTHER, SELFPAY ==
[2024-10-20] VITALS (9 sets, daily range): BP systolic 110–137; BP diastolic 67–89; PULSE 80–81; RESP 12–20; TEMP 36.3–37.2; O2SAT 96–100
--- NOTE | ~2024-10-20 | CT_ITS ---
EXAMINATION: CTA chest PE protocol DATE: 10/20/2024 20:34 INDICATION: Chest pain. TECHNIQUE: Computed tomography angiography (CTA) of the chest was performed with 100 mL Omnipaque-350 intravenous contrast timed to evaluate the pulmonary arteries. Coronal maximum intensity projection 3D-reconstructions were created by the technologist. Automated exposure control and iterative reconst ruction technique were employed. The dose-length product was 610.78 mGy-cm. COMPARISON: Chest 2 view 10/20/2024 FINDINGS: The lungs demonstrate mild atelectasis. No pleural effusion. The heart size is normal. Ther e are coronary artery calcifications. There are calcifications aortic valve. There is a left chest wa ll pacer with leads in the right atrium and right ventricle. Median sternotomy wires are noted. There is a small sliding hiatal hernia. There is wall thickening of the esophagus. There is no pulmonary e mbolus. There are gallstones in the gallbladder, which is normal in size. There is cortical thinning of the kidneys. There is thoracic kyphosis and severe spondylosis. IMPRESSION: 1. No pulmonary embolus. 2. Small sliding hiatal hernia. Wall thickening of the esophagus, consistent with esophagitis. Reviewed, dictated and finalized at location A. IMPRESSION: 1. No pulmonary embolus. 2. Small sliding hiatal hernia. Wall thickening of the esophagus, consistent wi th esophagitis.
--- NOTE | ~2024-10-20 | XR_ITS ---
XR chest 2V Ordering provider: Jp Faye MD History: 73 years Female with . chest pain, NAUSEAS . Comparison: June 07, 2023 FINDINGS: MEDIASTINUM: The cardiac silhouette is not enlarged. Left bipolar pacemaker. Postoperative changes in the mediastinum. LUNGS: No infiltrates, effusions or pneumothorax. OTHER: No free air under the diaphragm. Degenerative changes of the spine. IMPRESSION: No acute cardiopulmonary pathology. Reviewed, dictated and finalized at location A.
--- NOTE | 2024-10-20 15:57 | ECG_ITS ---
Test Date: 2024-10-20 16:02:13 Measurements Intervals [place] Rate: 80 P: 138 OR: 357 QRS: -31 QRSD: 119 T: 40 QT: 379 QTc: 439 Interpretive Statements ELECTRONIC ATRIAL PACEMAKER LEFT AXIS DEVIATION [QRS AXIS < -30] RIGHT BUNDLE BRANCH BLOCK [120+ ms QRS DURATION, UPRIGHT V1, 40+ ms S IN I/aVL/V4/V5/V6] SEPTAL MYOCARDIAL INFARCTION , OF INDETERMINATE AGE [40+ ms Q WAVE IN V1/V2] No previous ECG available for comparison Electronically Signed On 10-21-2024 13:18:14 CDT by Rita Calderon M.D.
[2024-10-20 16:16] LABS: Basophils Percent Auto 0.1 % (0.2-1.2); Eosinophils Percent Auto 0.4 % (0-4.4); Hematocrit 41.6 % (37.0-47.0); Hemoglobin 13.5 g/dL (12.0-15.0); Immature Granulocyte Absolute 0.02 K/mm3 (0.00-0.031); Immature Granulocyte Percent A 0.2 % (0-0.5); Lymphocytes Absolute Auto 0.19 K/mm3 (0.9-3.2); Lymphocytes Percent Auto 1.7 % (18.3-44.2); Mean Corpuscular HGB Conc 32.5 g/dl (32-36); Mean Corpuscular Hemoglobin 32.1 pg (26-34); Monocytes Absolute Auto 0.4 K/mm3 (0.1-0.6); Monocytes Percent Auto 3.2 % (2.6-8.5); Neutrophils Absolute Auto 10.3 K/mm3 (1.3-6.7); Neutrophils Percent Auto 94.4 % (45.5-73.1); Platelet Count Result 318 k/mm3 (150-375); Red Cell Distribution Width 12.5 % (11.5-14.5); White Blood Count 10.9 K/mm3 (4.5-10.0)
[2024-10-20 16:27] LABS: INR 0.9; Partial Thromboplastin Time 23.3 Seconds (22.3-36.8); Prothrombin Time 12.1 Seconds (11.1-14.7)
[2024-10-20 16:28] LABS: Alanine Aminotransferase 34 U/L (6-35); Albumin Level 4.9 g/dL (3.5-5.1); Alkaline Phosphatase 113 U/L (38-126); Anion Gap 14 mmol/L (4-12); Aspartate Amino Transferase 38 U/L (14-36); Blood Urea Nitrogen 23 mg/dL (7-17); Calcium 9.7 mg/dL (8.4-10.2); Carbon Dioxide 23 mmol/L (22-30); Chloride 99 mmol/L (98-107); Estimated CRCL calculation 48 ml/min; Estimated Glomerular Filt Rate 47; Glucose 128 mg/dL (65-110); Lipase 65 U/L (23-300); Potassium 4.7 mmol/L (3.4-5.0); Sodium 136 mmol/L (137-145)
--- NOTE | 2024-10-20 16:32 | ED_ITS ---
HPI - Chest Pain General Chief Complaint: Chest Pain <Tamera Benjamin PA-C - Last Filed: 10/23/24 13:00> Stated Complaint: chest pain <Tamera Benjamin PA-C - Last Filed: 10/23/24 13:00> Time Seen by Provider: 10/20/24 16:32 <Tamera Benjamin PA-C - Last Filed: 10/23/24 13:00> Focused HPI: This is a 73 year old female that presents to the ER for indigestion. Report this has been ongoing since she woke up at 6 this morning. Reports pressure in her chest, nausea, diarrhea. Reports she feels like she needs to throw up, but can't. Reports her stomach is churning. GENERAL: Uncomfortable, well-nourished, and in no acute distress. HEAD: Normocephalic, atraumatic. CHEST: Clear to auscultation. ?No respiratory distress. HEART: Regular rate and rhythm.? NEURO: ?Alert and oriented x3. Patient screened in triage and initial orders placed.? ?Additional care and disposition to be based upon?diagnostic testing and treatment. <Tamera Benjamin PA-C - Last Filed: 10/23/24 13:00> History of Present Illness HPI narrative: 73-year-old female presenting with indigestion symptoms. Patient does have a remote history of valve replacement 20+ years ago as well as hypertension hyperlipidemia. She also has paroxysmal AFib and pacemaker. Patient thinks she had some indigestion from bad food she ate yesterday as she was making a pie that tasted weird and then she started having symptoms immediately afterwards with an episode diarrhea and nauseousness without vomiting. States that she has a sour taste in the back for mouth and throat. Endorses chest pain with the burning but denies any shortness a breath or vomiting. <Zaki Law MD - Last Filed: 10/20/24 21:59> Related Data Home Medications: Home Medications ?Medication ?Instructions ?Recorded ?Confirmed ?Last Taken ?Type aspirin 325 mg tablet 325 mg PO DAILY 05/23/20 07/20/24 03/26/23 History cholecalciferol (vitamin D3) 5,000 unit DAILY 03/13/23 07/20/24 03/29/23 History fluticasone propionate 50 1 spray intranasal HS 03/13/23 07/20/24 04/01/23 History mcg/actuation nasal spray,suspension iron 25 mg DAILY 03/13/23 07/20/24 03/29/23 History multivitamin 1 tablet DAILY 03/13/23 07/20/24 03/29/23 History omega 9-wlk-aqe-fish oil 1,200 mg 1 cap PO DAILY 03/13/23 07/20/24 03/29/23 History (144 mg-216 mg) capsule (Fish Oil) <Tamera Benjamin PA-C - Last Filed: 10/23/24 13:00> Allergies/Adverse Reactions: Allergies Allergy/AdvReac Type Severity Reaction Status Date / Time Beta-Blockers AdvReac Intermediate Nausea and Verified 10/20/24 20:22 (Beta-Adrenergic Bloc Vomiting prochlorperazine AdvReac Unknown Rash Verified 10/20/24 20:22 atorvastatin (From Lipitor) AdvReac IRREGULAR Verified 10/20/24 20:22 HEAR RATE <Tamera Benjamin PA-C - Last Filed: 10/23/24 13:00> Review of Systems 2 Review of Systems: As reviewed above in HPI <Zaki Law MD - Last Filed: 10/20/24 21:59> [facility] Past Medical History Medical History: Medical History Skin tag Knee pain Secondary hyperparathyroidism, not elsewhere classified Right knee pain Fractured elbow Chronic kidney disease, stage 2 (mild) Function kidney decreased Hx of deep venous thrombosis Low hemoglobin Mass of right kidney <Tamera Benjamin PA-C - Last Filed: 10/23/24 13:00> Surgical History Surgical History: Surgical History Hx of total knee replacement History of total right knee replacement (~04/02/23) Imprint <Tamera Benjamin PA-C - Last Filed: 10/23/24 13:00> Family History Family History: Family History Father Hypertension Cerebrovascular accident Sibling Family history of diabetes mellitus in first degree relative Heart disease Mother Hypertension Family history of diabetes mellitus in first degree relative <Tamera Benjamin PA-C - Last Filed: 10/23/24 13:00> Social History Social History: Social History Smoking packs per day: 0.5 Smoking cigarettes per day: 10.0 Years smoked: 6 Smoking pack-years: 3.00 Smoking status: Former smoker Tobacco type: cigarettes Second hand tobacco smoke exposure: No Smoking end date: 08/12/13 Additional smoking assessment comments: PT DENIES ALL FORMS OF TOBACCO USE Alcohol intake: current Drinks per week: 7 Alcohol use details: 1 DRINK/NOC Substance use: current Substance use type: marijuana Other substance usage details: 08/13 GUMMIE @ NOC FOR SLEEP Last use: 03/12/23 Do You Feel Safe in your Home?: Yes Lack of Transportation: No Lack of Food: Never True Current Housing: I Have Housing Concerned About Future Housing: No Difficulty Paying Gas/Electric Bills: No Difficulty Paying for Meds: No Currently Unemployed: No Education: High School Diploma/GED Difficulty w/ Childcare or Family Care: No Living arrangements: with family Occupation/Education: retired 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 HEAD: [Normocephalic, atraumatic.] EYES: [PERRLA and EOMI.] ENT: Nares clear, no rhinorrhea or epistaxis. Mucous membranes moist. NECK: Supple. CHEST: [Clear to auscultation. No respiratory distress.] HEART: [Regular rate and rhythm]. No murmur heard. [Normal peripheral pulses.] ABDOMEN: [Soft, nondistended], [nontender], [No rigidity or guarding] EXTREMITIES: Normal range of motion. [No edema.] SKIN: Warm, dry, no rash. NEURO: [No focal deficits]. Alert and oriented [x3.] PSYCH: [Normal mood and affect.] <Zaki Law MD - Last Filed: 10/20/24 21:59> Course Vital Signs Vital signs: Vital Signs Temperature 97.4 F L 10/20/24 16:05 Pulse Rate 80 10/20/24 16:05 Respiratory Rate 18 10/20/24 16:05 Blood Pressure 137/70 10/20/24 16:05 Pulse Oximetry 100 10/20/24 16:05 Oxygen Delivery Room Air 10/20/24 16:05 Temperature 99.0 F 10/20/24 21:46 Pulse Rate 81 10/20/24 21:46 Respiratory Rate 13 10/20/24 21:46 Blood Pressure 134/69 10/20/24 21:46 Pulse Oximetry 97 10/20/24 21:46 Oxygen Delivery Room Air 10/20/24 20:18 <Tamera Benjamin PA-C - Last Filed: 10/23/24 13:00> Vital Signs Temperature 97.4 F L 10/20/24 16:05 Pulse Rate 80 10/20/24 16:05 Respiratory Rate 18 10/20/24 16:05 Blood Pressure 137/70 10/20/24 16:05 Pulse Oximetry 100 10/20/24 16:05 Oxygen Delivery Room Air 10/20/24 16:05 Temperature 99.0 F 10/20/24 21:46 Pulse Rate 81 10/20/24 21:46 Respiratory Rate 13 10/20/24 21:46 Blood Pressure 134/69 10/20/24 21:46 Pulse Oximetry 97 10/20/24 21:46 Oxygen Delivery Room Air 10/20/24 20:18 <Zaki Law MD - Last Filed: 10/20/24 21:59> MDM - Chest Pain MDM Narrative Medical decision making narrative: 73-year-old female with history of paroxysmal AFib, hypertension, hyperlipidemia. Remote history of DVT that was provoked. Presents to the emergency department today with indigestion symptoms, retrosternal burning epigastric and esophageal pain, nauseousness and diarrhea. Onset of symptoms after eating upon she baked yesterday that tasted weird. No at home with similar symptoms. She is overall well-appearing not any acute distress, has normal vital signs with any tachycardia, fever, hypoxia blood pressure concerns. 2+ symmetric pulses, clear breath sounds. No signs of a DVT on examination. Cardiac workup was ordered this time given her age and risk factors including serial troponins, EKG, chest x-ray, CBC, CMP. Considerations presently are for potential viral illness, ACS, pneumonia, gastritis, esophagitis, GERD, hiatal hernia, less likely pulmonary embolism. CT angiography was ordered given her history of DVT in the past. She is not presently on any anticoagulation aside from aspirin. Workup shows mild leukocytosis of 10.9 but not significant. Normal hemoglobin, normal platelet level. Coagulation studies within normal limits. BUN and creatinine normal at her baseline CKD. No electrolyte disturbances. Normal glucose, normal LFTs. Negative troponin x2. Viral swabs negative. Chest x-ray shows no acute cardiopulmonary process. Chest CT angiography shows no pulmonary embolism, gallstones but normal gallbladder. Small sliding hiatal hernia which patient is aware that she has. She has wall thickening of the esophagus and signs of esophagitis which clinically correlates with patient's history of indigestion and nauseousness. Patient was treated with combination medications including Zofran, Pepcid, Maalox and Protonix and Toradol. She felt significant improvement after medications and upon re-evaluation remained hemodynamically stable without concern. Patient does have elevated risk factors and I offered her observation admission here to the hospital for her chest pain although the most likely explanation is her indigestion from esophagitis and hiatal hernia. Patient felt more comfortable going home and will contact her PCP for GI referral. Patient was given strict return precautions and her family members at bedside were comfortable with her going home at this time. Patient was given prescription medications including Protonix, Pepcid, Maalox as well as Zofran as needed. < Zaki Law MD - Last Filed: 10/20/24 21:59> Medical Records Data Attestation: I reviewed the patient's medical records. <Zaki Law MD - Last Filed: 10/20/24 21:59> Lab Data Attestation: I reviewed the patient's lab results. <Zaki Law MD - Last Filed: 10/20/24 21:59> Result diagrams: 10/20/24 16:07 10/20/24 16:07 <Tamera Benjamin PA-C - Last Filed: 10/23/24 13:00> Labs: Lab Results 10/20/24 10/20/24 Range/Units 16:07 19:30 WBC 10.9 H (4.5-10.0) K/mm3 RBC 4.20 (4.2-5.4) M/mm3 Hgb 13.5 (12.0-15.0) g/dL Hct 41.6 (37.0-47.0) % MCV 99.0 (80-100) fl MCH 32.1 (26-34) pg MCHC 32.5 (32-36) g/dl RDW 12.5 (11.5-14.5) % Plt Count 318 (150-375) k/mm3 MPV 9.0 (7.4-10.4) fl Immature Gran % (Auto) 0.2 (0-0.5) % Neut % (Auto) 94.4 H (45.5-73.1) % Lymph % (Auto) 1.7 L (18.3-44.2) % [place] % (Auto) 3.2 (2.6-8.5) % Eos % (Auto) 0.4 (0-4.4) % Baso % (Auto) 0.1 L (0.2-1.2) % Lymph # (Auto) 0.19 L (0.9-3.2) K/mm3 [place] # (Auto) 0.4 (0.1-0.6) K/mm3 Eos # (Auto) 0.0 (0-0.3) K/mm3 Baso # (Auto) 0.0 (0.0-0.1) K/mm3 Abs Immat Gran (auto) 0.02 (0.00-0.031) K/mm3 Absolute Neuts (auto) 10.3 H (1.3-6.7) K/mm3 Absolute Nucleated RBC 0.000 (0.0-0.012) K/mm3 Nucleated RBC % 0.0 (0.0-0.2) % PT 12.1 (11.1-14.7) Seconds INR 0.9 APTT 23.3 (22.3-36.8) Seconds Sodium 136 L (137-145) mmol/L Potassium 4.7 (3.4-5.0) mmol/L Chloride 99 (98-107) mmol/L Carbon Dioxide 23 (22-30) mmol/L Anion Gap 14 H (4-12) mmol/L BUN 23 H (7-17) mg/dL Creatinine 1.15 H (0.7-1.0) mg/dL Estim Creat Clear Calc 48 ml/min Estimated GFR 47 L (59 - ) Glucose 128 H (65-110) mg/dL Calcium 9.7 (8.4-10.2) mg/dL Total Bilirubin 1.0 (0.2-1.3) mg/dL AST 38 H (14-36) U/L ALT 34 (6-35) U/L Alkaline Phosphatase 113 (38-126) U/L Troponin I < 0.012 < 0.012 (0.000-0.034) ng/mL Total Protein 8.0 (6.3-8.2) g/dL Albumin 4.9 (3.5-5.1) g/dL Lipase 65 (23-300) U/L Influenza A (RT-PCR) Negative (Negative) Influenza B (RT-PCR) Negative (Negative) SARS-CoV-2 RNA (RT-PCR) Negative (Negative) <Tamera Benjamin PA-C - Last Filed: 10/23/24 13:00> Lab Results 10/20/24 10/20/24 Range/Units 16:07 19:30 WBC 10.9 H (4.5-10.0) K/mm3 RBC 4.20 (4.2-5.4) M/mm3 Hgb 13.5 (12.0-15.0) g/dL Hct 41.6 (37.0-47.0) % MCV 99.0 (80-100) fl MCH 32.1 (26-34) pg MCHC 32.5 (32-36) g/dl RDW 12.5 (11.5-14.5) % Plt Count 318 (150-375) k/mm3 MPV 9.0 (7.4-10.4) fl Immature Gran % (Auto) 0.2 (0-0.5) % Neut % (Auto) 94.4 H (45.5-73.1) % Lymph % (Auto) 1.7 L (18.3-44.2) % [place] % (Auto) 3.2 (2.6-8.5) % Eos % (Auto) 0.4 (0-4.4) % Baso % (Auto) 0.1 L (0.2-1.2) % Lymph # (Auto) 0.19 L (0.9-3.2) K/mm3 [place] # (Auto) 0.4 (0.1-0.6) K/mm3 Eos # (Auto) 0.0 (0-0.3) K/mm3 Baso # (Auto) 0.0 (0.0-0.1) K/mm3 Abs Immat Gran (auto) 0.02 (0.00-0.031) K/mm3 Absolute Neuts (auto) 10.3 H (1.3-6.7) K/mm3 Absolute Nucleated RBC 0.000 (0.0-0.012) K/mm3 Nucleated RBC % 0.0 (0.0-0.2) % PT 12.1 (11.1-14.7) Seconds INR 0.9 APTT 23.3 (22.3-36.8) Seconds Sodium 136 L (137-145) mmol/L Potassium 4.7 (3.4-5.0) mmol/L Chloride 99 (98-107) mmol/L Carbon Dioxide 23 (22-30) mmol/L Anion Gap 14 H (4-12) mmol/L BUN 23 H (7-17) mg/dL Creatinine 1.15 H (0.7-1.0) mg/dL Estim Creat Clear Calc 48 ml/min Estimated GFR 47 L (59 - ) Glucose 128 H (65-110) mg/dL Calcium 9.7 (8.4-10.2) mg/dL Total Bilirubin 1.0 (0.2-1.3) mg/dL AST 38 H (14-36) U/L ALT 34 (6-35) U/L Alkaline Phosphatase 113 (38-126) U/L Troponin I < 0.012 < 0.012 (0.000-0.034) ng/mL Total Protein 8.0 (6.3-8.2) g/dL Albumin 4.9 (3.5-5.1) g/dL Lipase 65 (23-300) U/L Influenza A (RT-PCR) Negative (Negative) Influenza B (RT-PCR) Negative (Negative) SARS-CoV-2 RNA (RT-PCR) Negative (Negative) <Zaki Law MD - Last Filed: 10/20/24 21:59> Imaging Data Attestation: I personally reviewed and interpreted this imaging study as follows: < Zaki Law MD - Last Filed: 10/20/24 21:59> My impression: Impressions Chest X-Ray 10/20/24 16:25 IMPRESSION: No acute cardiopulmonary pathology. Chest CTA 10/20/24 20:36 IMPRESSION: 1. No pulmonary embolus. 2. Small sliding hiatal hernia. Wall thickening of the esophagus, consistent with esophagitis. <Zkai Law MD - Last Filed: 10/20/24 21:59> ECG Data EKG #1: Attestation: I personally reviewed and interpreted this ECG as follows: < Zaki Law MD - Last Filed: 10/20/24 21:59> ECG completion date: 10/20/24 <Zaki Law MD - Last Filed: 10/20/24 21:59> ECG completion time: 16:02 <Zaki Law MD - Last Filed: 10/20/24 21:59> Prior ECG tracings: available for review <Zaki Law MD - Last Filed: 10/20/24 21:59> Interpretation: Atrial pacemaker rhythm, no ST segment elevations, depressions. Leftward axis deviation. QTC 439, QRS 119, rate of 80 beats per minute. No significant interval change compared to prior EKG today. Right bundle branch block. Final interpretation pacemaker rhythm with right bundle-branch block. < Zaki Law MD - Last Filed: 10/20/24 21:59> Critical Care Time Critical Care Time Critical Care Time: No <Tamera Benjamin PA-C - Last Filed: 10/23/24 13:00> Discharge Plan Discharge Clinical Impression: Esophagitis, Esophageal hiatal hernia Chest pain Qualifiers: Chest pain type: unspecified Qualified Code(s): R07.9 - Chest pain, unspecified <Tamera Benjamin PA-C - Last Filed: 10/23/24 13:00> Patient Disposition: Home, Self-Care <Tamera Benjamin PA-C - Last Filed: 10/23/24 13:00> Condition: Stable <Tamera Benjamin PA-C - Last Filed: 10/23/24 13:00> Instructions: Antibiotic Form, Chest Pain (ED), Hiatal Hernia (DC), Esophagitis (ED) <Tamera Benjamin PA-C - Last Filed: 10/23/24 13:00> Additional Instructions: Your cardiac workup was reassuring, your cardiac enzymes were negative x2, CT scan shows no pulmonary embolism or blood clot. Your symptoms of indigestion or consistent with CT scan showing esophagitis and hiatal hernia. We will send you home with medications to try for symptom relief. If you experience any worsening chest pain, difficulty breathing, nauseousness, vomiting, back pain or any other concerns please return to the emergency department otherwise follow-up with regular doctor for GI referral. <Tamera Benjamin PA-C - Last Filed: 10/23/24 13:00> Patient Language: Georgian <Tamera Benjamin PA-C - Last Filed: 10/23/24 13:00> Prescriptions: New alum-mag hydroxide-simeth [Maalox Advanced] 200-200-20 mg/5 mL suspension 15 ml PO QID PRN (Reason: indigestion) Qty: 3000 0RF Rx Instructions: administer between meals and at bedtime famotidine [Pepcid] 20 mg tablet 20 mg PO BID Qty: 20 0RF ondansetron 4 mg tablet,disintegrating 4 mg PO Q8H PRN (Reason: nausea and vomiting) Qty: 10 0RF pantoprazole [Protonix] 40 mg tablet,delayed release (DR/EC) 40 mg PO HS 28 Days Qty: 28 0RF No Action spironolactone 25 mg tablet 25 mg PO DAILY Qty: 90 3RF diltiazem HCl [DILT-XR] 240 mg capsule,ext.rel 24h degradable 240 mg PO DAILY Qty: 90 3RF aspirin 325 mg tablet 325 mg PO DAILY lisinopril 20 mg tablet 20 mg PO DAILY Qty: 90 3RF multivitamin Tablet 1 tablet DAILY fluticasone propionate 50 mcg/actuation [place],Suspension 1 spray INTRANASAL HS Rx Instructions: administer into each nostril omega 2-tzw-eew-fish oil [Fish Oil] 1,200 (144-216) mg Capsule 1 cap PO DAILY cholecalciferol (vitamin D3) 5,000 unit DAILY iron 25 mg DAILY hydroxyzine HCl 25 mg tablet 25 mg PO BID PRN (Reason: anxiety) Qty: 30 3RF albuterol sulfate 90 mcg/actuation aerosol powdr breath activated 1 inh inhalation Q4-6H PRN (Reason: shortness of breath) Qty: 1 0RF budesonide-formoterol [Symbicort] 80-4.5 mcg/actuation HFA aerosol inhaler 2 puff INHALATION Q12H Qty: 6.9 4RF escitalopram oxalate 20 mg tablet 20 mg PO DAILY Qty: 90 0RF Patient Comments: TAKES AT HS Rx Instructions: hs rosuvastatin 20 mg tablet 20 mg PO DAILY Qty: 90 3RF tramadol 50 mg tablet 50 mg PO Q6H PRN (Reason: pain) Qty: 120 0RF <Tamera Benjamin PA-C - Last Filed: 10/23/24 13:00> Follow-up/Referrals: John Tavares MD [Primary Care Provider] - <Tamera Benjamin PA-C - Last Filed: 10/23/24 13:00> Time of Disposition: 21:59 <Tamera Benjamin PA-C - Last Filed: 10/23/24 13:00> 21:59 <Zaki Law MD - Last Filed: 10/20/24 21:59>
[2024-10-20 16:40] LABS: Troponin I < 0.012 ng/mL (0.000-0.034)
[2024-10-20] MEDS: PANTOPRAZOLE SODIUM IV 40 MG VIAL IV PUSH (16:47)
[2024-10-20] MEDS: ONDANSETRON INJ 4 MG/2 ML VIAL IV PUSH (16:47)
--- OUTSIDE RECORDS SUMMARY | 2024-10-20 17:49 | XMS_ITS | Clinical Summary ---
Author Organization [facility] Address [address] [facility] [place] [address] Care Team Providers Care Supervisor Fur Dressing Name Role Phone John Tavares MD Primary Care Provider [phone] Source Comments [facility],non-owned Affiliates and Associated Physician Practices is amultiple site organization consisting of ambulatory clinics and hospital sitesin [place], [place] and [place]. This disclosure is being madepursuant to the Care Everywhere program and may not contain all information available regarding this patient. Last updated 18.[facility] Allergies No known active allergies Immunizations Name Administration Dates Next Due INFLUENZA VACCINE, QUADR. (F LUZONE; FLULAVAL; FLUARIX; AFLURIA QUADRIVALENT; 6MO+), 0.5 ML (IIV4) 06/18/2017 Social History Tobacco Use Types Packs/Day Years Used Date Smoking Tobacco: Never Assessed Sex and Gender Information Value Date Recorded Sex Assigned at Not on file Gender Identity Not on file Sexual Orientation Not on file Plan of Treatment Health Maintenance Due Date Last Done Comments BONE DENSITY TESTING 1950 COLOGUARD (AGES 45-75) - COL ON CA SCREENING 1952 COLON MONITORING 1952 COLONOSCOPY - COLON CA SCREENING 1952 CT COLONOGRAPHY - COLON CA SCREENING 1952 Colorectal Cancer Screening 1952 FIT - COLON CA SCREENING 1952 FLEX SIG - COLON CA SCREENING 1952 LIPID TESTING 1952 MAMMOGRAM 1952 MEDICARE AWV 12 MONTHS 1952 HEPATITIS C SCREENING 10/25/1970 DTAP/TDAP/TD VACCINES (1 - Tdap) 10/30/1971 PNEUMOCOCCAL VACCINE 50+ (1 of 1 - PCV) 2002 ZOSTER VACCINE (1 of 2) 2002 COVID-19 VACCINE (1 - 2023-2 5 season) 2024 INFLUENZA VACCINE (#1) 2024 06/18/2017 DEPRESSION SCREENING 08/12/2024 Respiratory Syncytial Virus (RSV) Vaccine Pt: or over 60 yrs (1 - 1-dose 75+ series) 10/30/2027 HEPATITIS B VACCINE Aged Out No longe r eligible based on patient's age to complete this topic HIB VACCINE Aged Out No longer eligi ble based on patient's age to complete this topic HPV VACCINE Aged Out No longer eligi ble based on patient's age to complete this topic MENINGOCOCCAL (Group B) VACCINE Aged Out No longer eligible based on patient's age to complete this topic MENINGOCOCCAL VACCINE Aged Out No rodrigo avery eligible based on patient's age to complete this topic Care Teams Supervisor Fur Dressing Relationship Specialty Start Date End Date John Tavares MD [address] [place] [address] PCP - General Family Medicine 06/18/17
--- OUTSIDE RECORDS SUMMARY | 2024-10-20 17:49 | XMS_ITS | Encounter Summary ---
Author Organization [facility] Address [address] [place] [address] Care Team Providers Care Supervisor Ski Production Name Role Phone John Tavares MD Primary Care Provider [phone] Encounter Details Date Type Department Care Team (Late st Contact Info) Description 11/06/2023 Lab Requisition [facility] - DermPath Lab [address] [place] [address] John Tavares MD [address] [place] [address] Social History Tobacco Use Types Packs/Day Years Used Date Smoking Tobacco: Never Assessed Sex and Gender Information Value Date Recorded Sex Assigned at Not on file Gender Identity Not on file Sexual Orientation Not on file documented as of this encounter Plan of Treatment Not on file documented as of this encounter Procedures Procedure Name Priority Date/Time Associated Diagnosis Comments DERMATOPATHOLOGY Routine 11/06/2023 3:33 AM CDT documented in this encounter Results * DERMATOPATHOLOGY (11/06/2023 3:33 AM CDT) Case Report Dermatopathology Report Case: [id number] Authorizing Provider: John Tavares MD Collected: 11/06/2023 03:33 AM Ordering Location: [facility] - Received: 11/07/2023 07:12 AM DermPath Lab Pathologist: Tamera Hess MD Specimen: Skin, left neck 1:35 PM CDT DERMATOPATHOLOGY LABORATORY Final Diagnosis Specimen A. 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 Check Margins. 1:35 PM CDT DERMATOPATHOLOGY LABORATORY Gross Description Specimen A: Received is one formalin filled container labeled with the patient's name and designated left neck. The specimen consists of a shave biopsy measuring 6x3x6 mm. Jar 0. 1:35 PM CDT DERMATOPATHOLOGY LABORATORY Microscopic Description Specimen A. SKIN, left neck: There is digitated epidermal hyperplasia, hypergranulosis, vacuolated granular layer cells, and compact hyperorthokeratosis . 1:35 PM CDT DERMATOPATHOLOGY LABORATORY Disclaimer An external and internal positive and negative controls are appropriate for the histochemical, immunohistochemical and immunofluorescence stain(s) in this case (if any), except where stated explicitly. The performance characteristics of the stain(s) cited in this report were developed and its performance characteristic determined by the Dermatopathology Laboratory at [facility], directed by Dr. India Trujillo. These tests need not be, and therefore are not, approved by the [place] Food and Drug Administration. The tests are used for clinical purposes. Billing Codes Specimen Charges Stain Charges 43410 1 4 1:35 PM CDT DERMATOPATHOLOGY LABORATORY Embedded Images 1:35 PM CDT DERMATOPATHOLOGY LABORATORY Pathology/Cytolo gy TISSUE SPECIMEN FROM SKIN / Unknown 11/06/2023 3:33 AM CDT 11/07/2023 7:12 AM CDT John Tavares MD LAB - PATHOLOGY/CYTO LOGY ORDERABLES DERMATOPATHOLOGY LABORATORY [facility] - Department of Dermatology [facility] Medicine [address] [place] [address], [address] [phone] documented in this encounter Visit Diagnoses Not on filedocumented in this encounter Care Teams Supervisor Ski Production Relationship Specialty Start Date End Date John Tavares MD [address] [place] [address] PCP - General Family Medicine 06/18/17 documented as of this encounter
--- OUTSIDE RECORDS SUMMARY | 2024-10-20 17:49 | XMS_ITS | Referral Summary ---
Author Organization [facility] Address [address] [facility] [place] [address] Care Team Providers Care Gluer And Slicer Hand Name Role Phone John Tavares MD Primary Care Provider [phone] Source Comments [facility],non-owned Affiliates and Associated Physician Practices is amultiple site organization consisting of ambulatory clinics and hospital sitesin [place], [place], [place] and [place]. This disclosure is being madepursuant to the Care Everywhere program and may not contain all information available regarding this patient. Last updated 18.[facility] [place] Allergies No known active allergies Immunizations Name [...] Orientation Not on file Plan of Treatment Not on file Care Teams Gluer And Slicer Hand Relationship Specialty Start Date End Date John Tavares MD [address] [place] [address] PCP - General Family Medicine 06/18/17
--- OUTSIDE RECORDS SUMMARY | 2024-10-20 17:49 | XMS_ITS | Referral Summary ---
Author Organization [facility] Address [address] [place] [address] Care Team Providers Care Auxiliary Operator Name Role Phone John Tavares MD Primary Care Provider [phone] Jonathon Najera MD Unavailable [phone] Encounters Date Type Department Care Team Description 08/25/2024 Orders Only [facility] Cardiology [address] [place] [phone] Jonathon Najera MD Presence of cardiac pacemaker (Primary Dx); SSS (sick sinus syndrome) (HCC) 08/19/2024 9:45 AM CUPOLA CHARGER INSULATION Ancillary Procedure [facility] Cardiology [address] [place] [phone] Presence of cardiac pacemaker (Primary Dx); SSS (sick sinus syndrome) (HCC); PAF (paroxysmal atrial fibrillation) (HCC); NSVT (nonsustained ventricular tachycardia) ([facility]) from Last 3 Months Allergies Active Allergy Reactions Criticality Noted Date Comments Beta-Blockers (Beta-Adrenergic Blocking Agts) Other (See comments) Medium Exacerbate asthma. Prochlorperazine Rash Medium Medications albuterol HFA (PROAIR HFA) 90 mcg/actuation inhaler inhale 2 puff by inhalation route every 4 - 6 hours as needed 0 Inhaler 0 3 Active omega-3 fatty acids-fish oil 340-1,000 mg capsule take 1 by oral route every day 0 0 3 Active glucosamine-chond roit-vit C-Mn (GLUCOSAMINE CHONDROITIN MAXSTR) 500-400 mg capsule take 1 by Oral route every day 0 0 3 Active multivitamin tablet tablet take 1 tablet by oral route every day with food 0 0 3 Active fluticasone (FLONASE) 50 mcg/actuation nasal spray inhale 2 spray by Intranasal route every day in each nostril 0 spray 0 4 Active spironolactone (ALDACTONE) 25 mg tablet take 1 tablet by oral route every day 0 0 5 Active traMADol (ULTRAM) 50 mg tablet take 1 tablet by oral route every 6 hours as needed 0 0 5 Active aspirin 325 mg tablet take 1 tablet by oral route every day 0 0 6 Active diltiazem (TIAZAC) 240 mg 24 hr capsule take 1 capsule by oral route every day 30 3 5 Active escitalopram (LEXAPRO) 10 mg tablet Take 2 tablets (20 mg total) by mouth daily 0 8 Active rosuvastatin (CRESTOR) 10 mg tabletIndications :Dyslipidemia Take 1 tablet (10 mg total) by mouth daily. 90 tablet 3 8 Active lisinopril (PRINIVIL,ZESTRIL ) 20 mg tabletIndications :Essential hypertension Take 1 tablet (20 mg total) by mouth daily. 90 tablet 3 8 Active SYMBICORT 80-4.5 mcg/actuation inhaler 0 9 Active Active Problems Problem Noted Date Diagnosed Date Preop cardiovascular exam 04/03/2024 Pre-operative cardiovascular examination 023 Nonrheumatic mitral valve regurgitation 02/18/20 21 NSVT (nonsustained ventricular tachycardia) 03/12 Presence of cardiac pacemaker 01/21/2018 Overview (03/19/2018): Medtronic Dual Pacemaker. Dx; SSS, Afib. DOI 06/22/2016 + RV lead. Chronic atrial lead 04/23/1996. Carelink remote monitoring. Office pacer checks Q1 yr. PVC (premature ventricular contraction) 01/22/20 18 Awareness of heartbeats 12/27/2016 Overview (01/04/2017): Palpitations Nonrheumatic aortic valve stenosis 12/27/2016 Overview (01/04/2017): Non-rheumatic aortic stenosis Premature atrial contraction 11/28/2016 Overview (01/04/2017): Premature atrial contractions Ejection murmur 09/11/2016 Overview (11/16/2016): Systolic ejection murmur Essential hypertension 07/15/2014 Overview (11/16/2016): Essential hypertension Social History Tobacco Use Types Packs/Day Years Used Date Smoking Tobacco: Former Cigarettes 0.2 5 0 03/25/2009 - 09/19/2013 Smokeless Tobacco: Never Tobacco Cessation:Counseling Given: Not Answered Alcohol Use Standard Drinks/Week Comments Yes 0 (1 standard drink = 0.6 oz pur e alcohol) Personal Safety Answer Date Recorded Getting School Help Needed Not on file 07/25 Comments Unknown Sex and Gender Information Value Date Recorded Sex Assigned at Not on file Legal Sex Female 7:21 PM CUPOLA CHARGER INSULATION Gender Identity Female 03/25/2021 11:48 AM CDT Sexual Orientation Not on file Last Filed Vital Signs Vital Sign Reading Time Taken Comments Blood Pressure 116/82 04/03/2024 2:07 PM CDT Pulse 78 04/03/2024 2:07 PM CDT Temperature 36.4 C (97.5 F) 10/21/2020 12:59 PM CUPOLA CHARGER INSULATION Respiratory Rate 16 04/03/2024 2:07 PM CDT Oxygen Saturation 97% 03/22/2023 9:56 AM CDT Inhaled Oxygen Concentration - - Weight 101.2 kg (223 lb) 04/03/2024 2:07 PM CDT Height 167.6 cm (5' 6 ) 04/03/2024 2:07 PM CDT Body Mass Index 35.99 04/03/2024 2:07 PM CDT Plan of Treatment Not on file Medical Devices Implanted Type Area Clean Up Helper Banquet Device Identifier Shelf Expiration Date Model / Serial / Lot Pacemaker-06/22 Implanted:06/22 by Cely Coffey MD (Quantity not on file) Pacemaker Chest Medtronic SSS, Afib / / CHRONIC ATRIAL LEAD04/23/19 96 Procedures Procedure Name Priority Date/Time Associated Diagnosis Comments DEVICE CHECK - REMOTE Routine 08/25/2024 12:03 PM CUPOLA CHARGER INSULATION SSS (sick sinus syndrome) (HCC) PAF (paroxysmal atrial fibrillation) (HCC) NSVT (nonsustained ventricular tachycardia) (HCC) from Last 3 Months Results * DEVICE CHECK - REMOTE (08/25/2024 12:03 PM CUPOLA CHARGER INSULATION) Anatomical Region Laterality Modality Other Narrative 09/22/2024 4:06 PM CUPOLA CHARGER INSULATION Medtronic Dual Pacemaker. Dx; SSS, Afib. DOI 06/22/2016 + RV lead. Chronic atrial lead 04/23/1996. Carelink remote monitoring. Office pacer checks Q1 yr. Routine AAIR <> DDDR Pacemaker Remote. Transmission attached. Battery status: 2.74 V, 25 months remaining battery life to [place]. Stable lead impedances, pacing and sensing thresholds. Presenting rhythm: A paced/V sensed AP-99.6%, BUNKER WORKER-0.4% 1 AT/AF episodes noted, longest episode was 6 seconds in duration, IEGM demonstrates AT/AF. AF [place] < 0.1%. 1 Ventricular high rate episodes detected, IEGM demonstrates 5 seconds NSVT. Medications: ASA 325 mg, diltiazem 240 mg, lisinopril 20 mg See scanned report. Office pacemaker follow up: 06/16/25 [facility] remote f/u 11/18/24. Roman Kidd RN Jonathon Najera MD [facility] Final Result from Last 3 Months Insurance MEDICARE [facility] MEDICARE [facility] Care Teams Auxiliary Operator Relationship Specialty Start Date End Date Schueler, John F., MD PCP - General 11/09/16 Jonathon Najera MD [address] [facility] [address] [place] [phone] Clerk Supervisor Cardiology 05/30/17
--- OUTSIDE RECORDS SUMMARY | 2024-10-20 17:49 | XMS_ITS | Clinical Summary ---
Author Organization [facility] Address [address] [place] [phone] Phone Care Team Providers Care Production Graphic Designer Name Role Phone John Tavares MD Primary Care Provider [phone] Allergies Active Allergy Reactions Criticality Noted Date Comments Beta Adrenergic Blockers Other (see comments) Medium 09/27/2021 Exacerbate asthma. Prochlorperazine Rash Medium 09/27/2021 Medications Medication Sig Dispensed Refills Start Date End Date Status albuterol HFA (ProAir HFA) 108 (90 Base) MCG/ACT inhaler 90 mcg 05/27/2013 Active aspirin 325 MG tablet 325 mg 10/05/2015 Active budesonide-formotero l (Symbicort) 80-4.5 MCG/ACT inhaler 01/26/2019 Active dilTIAZem (TIAZAC) 240 MG 24 hr capsule 240 mg 03/23/2015 Acti ve escitalopram (LEXAPRO) 10 MG tablet TK 1 T PO QD 12/31/2017 Active fluticasone (FLONASE) 50 MCG/ACT nasal spray inhale 2 spray by Intranasal route every day in each nostril 12/09/2013 Active lisinopril (PRINIVIL) 20 MG tablet Take 20 mg by mouth daily 01/21/2018 Active rosuvastatin (CRESTOR) 10 MG tablet Take 10 mg by mouth daily 01/21/2018 Active spironolactone (ALDACTONE) 25 MG tablet 25 mg 03/23/2015 Active traMADol (ULTRAM) 50 MG tablet 50 mg 03/23/2015 Active GLUCOSAMINE-CHONDROI T-BIOFL-MN PO take 1 by Oral route every day 05/27/2013 Active multivitamin with minerals (CENTRUM/CERTAVIT) 9-200 mg-mcg tablet (HALF TABLET) take 1 tablet by oral route every day with food 05/27/2013 Active fish oil-omega-3 fatty acids 1000 MG capsule take 1 by oral route every day 05/27/2013 Active Cholecalciferol (Vitamin D3) 50 MCG (1999 UT) chewable tablet Chew Active Active Problems Problem Noted Date Diagnosed Date Chronic kidney disease stage 3A 09/27/2021 Nonrheumatic mitral valve regurgitation 02/18/20 21 Presence of cardiac pacemaker 01/21/2018 Overview (09/27/2021): Medtronic Dual Pacemaker. Dx; SSS, Afib. DOI 06/22/2016 + RV lead. Chronic atrial lead 04/23/1996. Carelink remote monitoring. Office pacer checks Q1 yr. Nonrheumatic aortic valve stenosis 12/27/2016 Overview (09/27/2021): Non-rheumatic aortic stenosis Essential hypertension 07/15/2014 Overview (09/27/2021): Essential hypertension Immunizations Name Administration Dates Next Due Influenza TIV (IM) 06/12/2021 Influenza, Injectable, Quadrivalent, Preservativ e Free 06/18/2017 Pneumococcal Conjugate 04/12/2018 Pneumococcal Conjugate 13-Valent 04/12/2019 Family History Medical History Relation Comments Diabetes Mother Kidney disease Neg Hx Relation Status Comments Mother Social History Tobacco Use Types Packs/Day Years Used Date Smoking Tobacco: Former Smokeless Tobacco: Never Alcohol Use Standard Drinks/Week Comments Yes 7 (1 standard drink = 0.6 oz pur e alcohol) Sex and Gender Information Value Date Recorded Sex Assigned at Not on file Gender Identity Not on file Sexual Orientation Not on file Last Filed Vital Signs Vital Sign Reading Time Taken Comments Blood Pressure 118/72 12/28/2021 11:20 AM CDT Pulse 84 12/28/2021 11:20 AM CDT Temperature 36.4 C (97.5 F) 12/28/2021 11:20 AM CDT Respiratory Rate - - Oxygen Saturation - - Inhaled Oxygen Concentration - - Weight 110 kg (243 lb) 12/28/2021 11:20 AM CDT Height 167.6 cm (5' 6 ) 12/28/2021 11:20 AM CDT Body Mass Index 39.22 12/28/2021 11:20 AM CDT Plan of Treatment Health Maintenance Due Date Last Done Comments Pneumococcal PPSV23/PCV13 65 + Years / Low and Medium Risk (2 of 3 - PPSV23 or PCV20) 04/12/2020 04/12/2019 Influenza Vaccine (#1) 2024 06/12/2021, 2016 Care Teams Production Graphic Designer Relationship Specialty Start Date End Date John Tavares MD [address] [place] [address] PCP - General Family Medicine 09/20/21
--- OUTSIDE RECORDS SUMMARY | 2024-10-20 17:49 | XMS_ITS | Encounter Summary ---
Author Organization [facility] Address [address] [address] Care Team Providers Care Bridge/Structure Inspection Team Leader Name Role Phone John Tavares MD Primary Care Provider Jonathon Najera MD Unavailable [phone] Encounter Details Date Type Department Care Team (Late st Contact Info) Description 11/21/2016 Orders Only [facility] Provider, MD Niharika [address] [place] [phone] Social History Tobacco Use Types Packs/Day Years Used Date Smoking Tobacco: Former Cigarettes Q uit: 08/12/1997 Alcohol Use Standard Drinks/Week Comments Yes 0 (1 standard drink = 0.6 oz pur e alcohol) Comments Unknown Sex and Gender Information Value Date Recorded Sex Assigned at Not on file Legal Sex Female 7:21 PM STEREOPTIC PROJECTION TOPOGRAPHER Gender Identity Female 03/25/2021 11:48 AM CDT Sexual Orientation Not on file documented as of this encounter Plan of Treatment Not on file documented as of this encounter Procedures Procedure Name Priority Date/Time Associated Diagnosis Comments CARDIOLOGY REPORT 11/21/2016 documented in this encounter Results * CARDIOLOGY REPORT (11/21/2016) Anatomical Region Laterality Modality Other Narrative 11/21/2016 Ordered by an unspecified provider. Historical Provider [facility] Final Result documented in this encounter Visit Diagnoses Not on filedocumented in this encounter Care Teams Bridge/Structure Inspection Team Leader Relationship Specialty Start Date End Date John Tavares MD PCP - General 11/09/16 Jonathon Najera MD [address] [address] Head Greenskeeper Cardiology 05/30/17 documented as of this encounter
--- OUTSIDE RECORDS SUMMARY | 2024-10-20 17:49 | XMS_ITS | Clinical Summary ---
Author Organization [facility] Address [address] [place] [address] Care Team Providers Care Motor Vehicle Salesperson Name Role Phone John Tavares MD Primary Care Provider [phone] Jonathon Najera MD Unavailable [phone] Allergies Active Allergy Reactions Criticality Noted Date [...] Essential hypertension 07/15/2014 Overview (11/16/2016): Essential hypertension Encounters Date Type Department Care Team Description 08/25/2024 Orders Only [facility] Medical [facility] Cardiology [address] [place] [phone] Jonathon Najera MD Presence of cardiac pacemaker (Primary Dx); SSS (sick sinus syndrome) (HCC) 08/19/2024 9:45 AM SHOOTER'S HELPER Ancillary Procedure [facility] Cardiology [address] [place] [phone] Presence of cardiac pacemaker (Primary Dx); SSS (sick sinus syndrome) (HCC); PAF (paroxysmal atrial fibrillation) (HCC); NSVT (nonsustained ventricular tachycardia) ([facility]) from Last 3 Months Surgical History Surgery Date Site/Laterality Comments FRACTURE SURGERY 1985 HYSTERECTOMY 1979 SPINE SURGERY 2003 Medical History Medical History Date Comments Hx Other Medical aasthma, status post hysterectomy, A. fib, DVT Hx Other Medical sstatus post IV C filter, status post maze procedu Hx Other Medical lumbar laminect rai and discectomy, hypertension, E Anxiety 2016 Arthritis 2009 Asthma Childhood Cataract 2018 Heart disease 1994 Hypertension 2006 Chronic kidney disease 2021 Menstrual problem 1974 Family History Medical History Relation Name Comments Asthma Brother Juan Diabetes Brother Juan Early Brother Juan Heart attack Brother Juan Heart disease Brother Juan Hypertension Brother Juan Hypertension Father Johnson Other Father Johnson cerebral hemorr salvatore; Cause of : cerebral hemorrhage Stroke Father Johnson Arthritis Mother January Diabetes Mother January Hypertension Mother Shruthi Other Mother Shruthi old age; Cause of : old age Relation Name Status Comments Brother Juan Father Johnson (Age 73) Mother Shruthi (Age 87) Social History Tobacco Use Types Packs/Day Years [...] on file Legal Sex Female 7:21 PM SHOOTER'S HELPER Gender Identity Female 03/25/2021 11:48 AM CDT Sexual Orientation Not on file Obstetrics History Last Filed Vital Signs Vital Sign Reading Time Taken Comments Blood Pressure 116/82 04/03/2024 2:07 PM CDT Pulse 78 04/03/2024 2:07 PM CDT Temperature 36.4 C (97.5 F) 10/21/2020 12:59 PM SHOOTER'S HELPER Respiratory Rate 16 04/03/2024 2:07 PM CDT Oxygen Saturation 97% 03/22/2023 9:56 AM CDT Inhaled Oxygen Concentration - - Weight 101.2 kg (223 lb) 04/03/2024 2:07 PM CDT Height 167.6 cm (5' 6 ) 04/03/2024 2:07 PM CDT Body Mass Index 35.99 04/03/2024 2:07 PM CDT Plan of Treatment Health Maintenance Due Date Last Done Comments Breast Cancer Screening-Mammogram 1952 Colon Cancer Screening-Colonoscopy 1952 Depression Screening 1952 Fall Risk Assessment 1952 Hepatitis C Screening 1952 Osteoporosis Screening-Bone Density Scan 1952 DTaP/Tdap/Td Vaccine (1 - Tdap) 10/30/1963 Hepatitis B Screening 1970 Zoster Vaccine (1 of 2) 2002 Well Visit 65+ 2017 Influenza Vaccine (#1) 2024 , 06/08/2019, 06/02/2018, Additional history exists Pneumococcal vaccine 65+ Completed 019, 04/12/2019, 06/02/2018, Additional history exists Medical Devices Implanted Type Area Inseam Trimming Machine Operator Device Identifier Shelf Expiration Date Model / Serial / Lot Pacemaker-06/22 Implanted:06/22 by Cely Coffey MD (Quantity not on file) Pacemaker Chest Medtronic SSS, Afib / / CHRONIC ATRIAL LEAD04/23/19 96 Procedures Procedure Name Priority Date/Time Associated Diagnosis Comments DEVICE CHECK - REMOTE Routine 08/25/2024 12:03 PM SHOOTER'S HELPER SSS (sick sinus syndrome) (HCC) PAF (paroxysmal atrial fibrillation) (HCC) NSVT (nonsustained ventricular tachycardia) (HCC) from Last 3 Months Results * DEVICE CHECK - REMOTE (08/25/2024 12:03 PM SHOOTER'S HELPER) Anatomical Region Laterality Modality Other Narrative 09/22/2024 4:06 PM SHOOTER'S HELPER Medtronic Dual Pacemaker. Dx; SSS, Afib. DOI 06/22/2016 + RV lead. Chronic atrial lead 04/23/1996. Carelink remote monitoring. Office pacer checks Q1 yr. Routine AAIR <> DDDR Pacemaker Remote. Transmission attached. Battery status: 2.74 V, 25 months remaining battery life to MCKENZIE. Stable lead impedances, pacing and sensing thresholds. Presenting rhythm: A paced/V sensed AP-99.6%, TURRET LATHE TENDER-0.4% 1 AT/AF episodes noted, longest episode was 6 seconds in duration, IEGM demonstrates AT/AF. AF [place] < 0.1%. 1 Ventricular high rate episodes detected, IEGM demonstrates 5 seconds NSVT. Medications: ASA 325 mg, diltiazem 240 mg, lisinopril 20 mg See scanned report. Office pacemaker follow up: 06/16/25 CareLink remote f/u 11/18/24. Roman Kidd, RN us Jonathon Najera MD CV CARDIAC SERVICES PROCE [facility] Final Result from Last 3 Months Insurance MEDICARE [facility] [place] [address] MEDICARE [facility] Care Teams Motor Vehicle Salesperson Relationship Specialty Start Date End Date John Tavares MD PCP - General 11/09/16 Jonathon Najera MD [address] [facility] [address] [place] [id number] Metal Sheet Roller Operator Cardiology 05/30/17
--- OUTSIDE RECORDS SUMMARY | 2024-10-20 17:49 | XMS_ITS | Encounter Summary ---
Author Organization [facility] Address [address] [address] Care Team Providers Care Assurance Analyst Name Role Phone John Tavares MD Primary Care Provider + [phone] John Tavares MD Primary Care Provider + [phone] Jonathon Najera MD Unavailable [phone] Encounter Details Date Type Department Care Team (Late st Contact Info) Description 08/15/2016 Orders Only [facility] ProviderNiharika MD [address] [place] [address] Social History Tobacco Use Types Packs/Day Years Used Date Smoking Tobacco: Former Cigarettes Q uit: 08/12/1997 Alcohol Use Standard Drinks/Week Comments Yes 0 (1 standard drink = 0.6 oz pur e alcohol) Comments Unknown Sex and Gender Information Value Date Recorded Sex Assigned at Not on file 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 us Historical Provider [facility] MAREN TARANGO Final Result documented in this encounter Visit Diagnoses Not on filedocumented in this encounter Care Teams Assurance Analyst Relationship Specialty Start Date End Date John Tavares MD PCP - General 11/09/16 John Tavares MD PCP - General 05/27/13 11/08/16 Jonathon Najera MD [address] [address] Applied Psychology Teacher Cardiology 05/30/17 documented as of this encounter
--- OUTSIDE RECORDS SUMMARY | 2024-10-20 17:49 | XMS_ITS | Continuity of Care Document ---
Author Name [facility] Organization [facility] Care Team Providers Care Oracle Programmer Analyst Name Role Phone [facility] Unavailable Unavailable Immunizations Combined list of available immunizations from the Department of Defense and Veterans Affairs facilities. Immunization Series Date Given Administered By Site Reaction Lot Number CVX Code Drug Video Manager Status Comments Source COVID-19 ([email or web address]), MRNA, LNP-S, PF, 30 MCG/0.3 ML DOSE, IVONNE-SUCROSE (AGES 12+ YEARS) 4 2021 217 complet ed PFR; [id number]; 2 [facility] Bear
--- OUTSIDE RECORDS SUMMARY | 2024-10-20 17:49 | XMS_ITS | Patient Health Summary ---
Author Organization [facility] Address [address] [facility] [place] [address] Care Team Providers Care Curbing Stonecutter Name Role Phone John Tavares MD Primary Care Provider [phone] Note from [facility],non-owned Affiliates and Associated Physician Practices is amultiple site organization consisting of ambulatory clinics and hospital sitesin [place], [place], [place] and [place]. This disclosure is being madepursuant to the Care Everywhere program and may not contain all information available regarding this patient. Last updated 18.[facility] Allergies No known active allergies Immunizations * INFLUENZA VACCINE, QUADR. (FLUZONE; FLULAVAL; FLUARIX; AFLURIA QUADRIVALENT; 6MO+), 0.5 ML (IIV4)(Given 06/18/2017) Social History Tobacco Use Types Packs/Day Years Used Date Smoking Tobacco: Never Assessed Sex and Gender Information Value Date Recorded Sex Assigned at Not on file Gender Identity Not on file Sexual Orientation Not on file Procedures * DERMATOPATHOLOGY(Performed 11/06/2023) Results * DERMATOPATHOLOGY (11/06/2023 3:33 AM CDT) Case Report Dermatopathology Report Case: [id number] Authorizing Provider: John Tavares MD Collected: 11/06/2023 03:33 AM Ordering Location: [facility] - Received: 11/07/2023 07:12 AM DermPath Lab Pathologist: Tamera Hess MD Specimen: Skin, left neck 1:35 PM CDT DERMATOPATHOLOGY LABORATORY Final Diagnosis Specimen A. 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 Check Margins. 4 1:35 PM CDT DERMATOPATHOLOGY LABORATORY Gross Description Specimen A: Received is one formalin filled container labeled with the patient's name and designated left neck. The specimen consists of a shave biopsy measuring 6x3x6 mm. Jar 0. 1:35 PM CDT DERMATOPATHOLOGY LABORATORY Microscopic Description Specimen A. SKIN, left neck: There is digitated epidermal hyperplasia, hypergranulosis, vacuolated granular layer cells, and compact hyperorthokeratosis . 4 1:35 PM CDT DERMATOPATHOLOGY LABORATORY Disclaimer An external and internal positive and negative controls are appropriate for the histochemical, immunohistochemical and immunofluorescence stain(s) in this case (if any), except where stated explicitly. The performance characteristics of the stain(s) cited in this report were developed and its performance characteristic determined by the Dermatopathology Laboratory at [facility], directed by Dr. India Trujillo. These tests need not be, and therefore are not, approved by the [place] Food and Drug Administration. The tests are used for clinical purposes. Billing Codes Specimen Charges Stain Charges 45894 1 4 1:35 PM CDT DERMATOPATHOLOGY LABORATORY Embedded Images 1:35 PM CDT DERMATOPATHOLOGY LABORATORY Pathology/Cytolo gy TISSUE SPECIMEN FROM SKIN / Unknown 11/06/2023 3:33 AM CDT 11/07/2023 7:12 AM CDT John Tavares MD LAB - PATHOLOGY/CYTO LOGY ORDERABLES DERMATOPATHOLOGY LABORATORY [facility] - Department of Dermatology [facility] Medicine [address] [place] [address], [address] [phone] Care Teams Curbing Stonecutter Relationship Specialty Start Date End Date John Tavares MD [address] [place] [address] PCP - General Family Medicine 06/18/17
--- OUTSIDE RECORDS SUMMARY | 2024-10-20 17:49 | XMS_ITS | Encounter Summary ---
Author Organization [facility] Address [address] [address] Care Team Providers Care Control System Computer Scientist Name Role Phone John Tavares MD Primary Care Provider + [phone] John Tavares MD Primary Care Provider + [phone] Jonathon Najrea MD Unavailable [phone] Encounter Details Date Type Department Care Team (Late st Contact Info) Description 10/03/2016 Orders Only [facility] ProviderNiharika MD [address] [place] [address] Social History Tobacco Use Types Packs/Day Years Used Date Smoking Tobacco: Former Cigarettes Q uit: 08/12/1997 Alcohol Use Standard Drinks/Week Comments Yes 0 (1 standard drink = 0.6 oz pur e alcohol) Comments Unknown Sex and Gender Information Value Date Recorded Sex Assigned at Not on file 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 us Historical Provider [facility] MAREN TARANGO Final Result documented in this encounter Visit Diagnoses Not on filedocumented in this encounter Care Teams Control System Computer Scientist Relationship Specialty Start Date End Date John Tavares MD PCP - General 11/09/16 John Tavares MD PCP - General 05/27/13 11/08/16 Jonathon Najera MD [address] [address] Pre Sales Architect Cardiology 05/30/17 documented as of this encounter
--- OUTSIDE RECORDS SUMMARY | 2024-10-20 17:49 | XMS_ITS | Encounter Summary ---
Author Organization [facility] Address [address] [address] Care Team Providers Care Forest Fire Control Officer Name Role Phone John Tavares MD Primary Care Provider [phone] Jonathon Najera MD Unavailable [phone] Encounter Details Date Type Department Care Team (Late st Contact Info) Description 12/10/2016 Orders Only [facility] Provider, MD Niharika [address] [place] [address] Social History Tobacco Use Types Packs/Day Years Used Date Smoking Tobacco: Former Cigarettes Q uit: 08/12/1997 Alcohol Use Standard Drinks/Week Comments Yes 0 (1 standard drink = 0.6 oz pur e alcohol) Comments Unknown Sex and Gender Information Value Date Recorded Sex Assigned at Not on file 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 Historical Provider [facility] MAREN TARANGO Final Result documented in this encounter Visit Diagnoses Not on filedocumented in this encounter Care Teams Forest Fire Control Officer Relationship Specialty Start Date End Date John Tavares MD PCP - General 11/09/16 Jonathon Najera MD [address] [address] Crown Buffer Cardiology 05/30/17 documented as of this encounter
--- OUTSIDE RECORDS SUMMARY | 2024-10-20 17:49 | XMS_ITS | Encounter Summary ---
Author Organization [facility] Address [address] [address] Care Team Providers Care Nursing Surgical Services Director Name Role Phone John Tavares MD Primary Care Provider Jonathon Najera MD Unavailable [phone] Encounter Details Date Type Department Care Team (Late st Contact Info) Description 12/31/2016 Orders Only [facility] Provider, MD Niharika [address] [place] [address] Social History Tobacco Use Types Packs/Day Years Used Date Smoking Tobacco: Former Cigarettes Q uit: 08/12/1997 Alcohol Use Standard Drinks/Week Comments Yes 0 (1 standard drink = 0.6 oz pur e alcohol) Comments Unknown Sex and Gender Information Value Date Recorded Sex Assigned at Not on file 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 Historical Provider [facility] MAREN TARANGO Final Result documented in this encounter Visit Diagnoses Not on filedocumented in this encounter Care Teams Nursing Surgical Services Director Relationship Specialty Start Date End Date John Tavares MD PCP - General 11/09/16 Jonathon Najera MD [address] [address] Truck Supervisor Cardiology 05/30/17 documented as of this encounter
--- OUTSIDE RECORDS SUMMARY | 2024-10-20 17:49 | XMS_ITS | Encounter Summary ---
Author Organization [facility] Address [address] [address] Care Team Providers Care Security Delivery Specialist Name Role Phone John Tavares MD Primary Care Provider Jonathon Najera MD Unavailable Encounter Details Date Type Department Care Team (Late st Contact Info) Description 11/22/2016 Orders Only [facility] Provider, MD Niharika [address] [place] [address] Social History Tobacco Use Types Packs/Day Years Used Date Smoking Tobacco: Former Cigarettes Q uit: 08/12/1997 Alcohol Use Standard Drinks/Week Comments Yes 0 (1 standard drink = 0.6 oz pur e alcohol) Comments Unknown Sex and Gender Information Value Date Recorded Sex Assigned at Not on file 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 Historical Provider [facility] PROCE DURES Final Result * CARDIOLOGY REPORT (11/22/2016) Anatomical Region Laterality Modality Other Narrative 11/22/2016 Ordered by an unspecified provider. [facility] Provider CV CARDIAC SERVICES PROCE DURES Final Result * CARDIOLOGY REPORT (11/22/2016) Anatomical Region Laterality Modality Other Narrative 11/22/2016 Ordered by an unspecified provider. [facility] Provider CV CARDIAC SERVICES PROCE DURES Final Result * CARDIOLOGY REPORT (11/22/2016) Anatomical Region Laterality Modality Other Narrative 11/22/2016 Ordered by an unspecified provider. [facility] Provider [facility] C[facility]IAC SERVICES PROCE DURES Final Result documented in this encounter Visit Diagnoses Not on filedocumented in this encounter Care Teams Security Delivery Specialist Relationship Specialty Start Date End Date John Tavares MD PCP - General 11/09/16 Jonathon Najera MD [address] [facility] [address] [place] [address] Auto Washer Cardiology 05/30/17 documented as of this encounter
--- OUTSIDE RECORDS SUMMARY | 2024-10-20 17:49 | XMS_ITS | Encounter Summary ---
Author Organization [facility] Address [address] [address] Care Team Providers Care Egg Grader Name Role Phone John Tavares MD Primary Care Provider + [phone] John Tvaares MD Primary Care Provider + [phone] Jonathon Najera MD Unavailable [phone] Encounter Details Date Type Department Care Team (Late st Contact Info) Description 09/18/2016 Orders Only [facility] ProviderNiharika MD [address] [place] [address] Social History Tobacco Use Types Packs/Day Years Used Date Smoking Tobacco: Former Cigarettes Q uit: 08/12/1997 Alcohol Use Standard Drinks/Week Comments Yes 0 (1 standard drink = 0.6 oz pur e alcohol) Comments Unknown Sex and Gender Information Value Date Recorded Sex Assigned at Not on file 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 us Historical Provider [facility] MAREN TARANGO Final Result documented in this encounter Visit Diagnoses Not on filedocumented in this encounter Care Teams Egg Grader Relationship Specialty Start Date End Date John Tavares MD PCP - General 11/09/16 John Tavares MD PCP - General 05/27/13 11/08/16 Jonathon Najera MD [address] [address] Pesticide Chemist Cardiology 05/30/17 documented as of this encounter
--- OUTSIDE RECORDS SUMMARY | 2024-10-20 17:49 | XMS_ITS | Encounter Summary ---
Author Organization [facility] Address [address] [address] Care Team Providers Care Professor Of Visual Arts Name Role Phone John Tavares MD Primary Care Provider + [phone] John Tavares MD Primary Care Provider + [phone] Jonathon Najera MD Unavailable [phone] Encounter Details Date Type Department Care Team (Late st Contact Info) Description 08/29/2016 Orders Only [facility] ProviderNiharika MD [address] [place] [address] Social History Tobacco Use Types Packs/Day Years Used Date Smoking Tobacco: Former Cigarettes Q uit: 08/12/1997 Alcohol Use Standard Drinks/Week Comments Yes 0 (1 standard drink = 0.6 oz pur e alcohol) Comments Unknown Sex and Gender Information Value Date Recorded Sex Assigned at Not on file Legal Sex Female 7:21 PM SPECIAL SERVICES DIRECTOR Gender Identity Female 03/25/2021 11:48 AM CDT Sexual Orientation Not on file documented as of this encounter Plan of Treatment Not on file documented as of this encounter Procedures Procedure Name Priority Date/Time Associated Diagnosis Comments CARDIOLOGY REPORT 08/29/2016 documented in this encounter Results * CARDIOLOGY REPORT (08/29/2016) Anatomical Region Laterality Modality Other Narrative 08/29/2016 Ordered by an unspecified provider. us Historical Provider [facility] MAREN TARANGO Final Result documented in this encounter Visit Diagnoses Not on filedocumented in this encounter Care Teams Professor Of Visual Arts Relationship Specialty Start Date End Date John Tavares MD PCP - General 11/09/16 John Tavares MD PCP - General 05/27/13 11/08/16 Jonathon Najera MD [address] [address] Depalletizer Operator Cardiology 05/30/17 documented as of this encounter
--- NOTE | 2024-10-20 19:23 | ECG_ITS ---
Test Date: 2024-10-20 21:27:05 Measurements Intervals [place] Rate: 80 P: 141 WI: 362 QRS: -30 QRSD: 124 T: 16 QT: 366 QTc: 422 Interpretive Statements ELECTRONIC ATRIAL PACEMAKER RIGHT BUNDLE BRANCH BLOCK [120+ ms QRS DURATION, UPRIGHT V1, 40+ ms S IN I/aVL/V4/V5/V6] SEPTAL MYOCARDIAL INFARCTION , OF INDETERMINATE AGE [40+ ms Q WAVE IN V1/V2] Compared to ECG 10/20/2024 19:28:59 No significant changes Electronically Signed On 10-21-2024 13:29:58 CDT by Rita Calderon M.D.
[2024-10-20 19:55] LABS: Troponin I < 0.012 ng/mL (0.000-0.034)
--- OUTSIDE RECORDS SUMMARY | 2024-10-20 20:00 | XMS_ITS | Encounter Summary ---
Author Organization [facility] Address [address] [address] Care Team Providers Care Ground Water Pump Installer Name Role Phone John Tavares MD Primary Care Provider Jonathon Najera MD Unavailable Encounter Details Date Type Department Care Team (Late st Contact Info) Description 11/22/2016 Orders Only [facility] Provider, MD Niharika [address] [place] [address] Social History Tobacco Use Types Packs/Day Years Used Date Smoking Tobacco: Former Cigarettes Q uit: 08/12/1997 Alcohol Use Standard Drinks/Week Comments Yes 0 (1 standard drink = 0.6 oz pur e alcohol) Comments Unknown Sex and Gender Information Value Date Recorded Sex Assigned at Not on file 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 [facility] Provider CV CARDIAC SERVICES PROCE DURES Final Result * CARDIOLOGY REPORT (11/22/2016) Anatomical Region Laterality Modality Other Narrative 11/22/2016 Ordered by an unspecified provider. [facility] Provider CV CARDIAC SERVICES PROCE DURES Final Result * CARDIOLOGY REPORT (11/22/2016) Anatomical Region Laterality Modality Other Narrative 11/22/2016 Ordered by an unspecified provider. [facility] Provider CV CARDIAC SERVICES PROCE DURES Final Result documented in this encounter Visit Diagnoses Not on filedocumented in this encounter Care Teams Ground Water Pump Installer Relationship Specialty Start Date End Date John Tavares MD PCP - General 11/09/16 Jonathon Najera MD [address] [facility] [address] [place] [address] Councilor Cardiology 05/30/17 documented as of this encounter
--- OUTSIDE RECORDS SUMMARY | 2024-10-20 20:00 | XMS_ITS | Encounter Summary ---
Author Organization [facility] Address [address] [address] Care Team Providers Care Station Installer Name Role Phone John Tavares MD Primary Care Provider Jonathon Najera MD Unavailable [phone] Encounter Details Date Type Department Care Team (Late st Contact Info) Description 11/21/2016 Orders Only [facility] Provider, MD Niharika [address] [place] [address] Social History Tobacco Use Types Packs/Day Years Used Date Smoking Tobacco: Former Cigarettes Q uit: 08/12/1997 Alcohol Use Standard Drinks/Week Comments Yes 0 (1 standard drink = 0.6 oz pur e alcohol) Comments Unknown Sex and Gender Information Value Date Recorded Sex Assigned at Not on file 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
--- OUTSIDE RECORDS SUMMARY | 2024-10-20 20:01 | XMS_ITS | Encounter Summary ---
Author Organization [facility] Address [address] [address] Care Team Providers Care Service Technician Copier Name Role Phone John Tavares MD Primary Care Provider + [phone] John Tavares MD Primary Care Provider + [phone] Jonathon Najera MD Unavailable [phone] Encounter Details Date Type Department Care Team (Late st Contact Info) Description 08/29/2016 Orders Only [facility] ProviderNiharika MD [address] [place] [address] Social History Tobacco Use Types Packs/Day Years Used Date Smoking Tobacco: Former Cigarettes Q uit: 08/12/1997 Alcohol Use Standard Drinks/Week Comments Yes 0 (1 standard drink = 0.6 oz pur e alcohol) Comments Unknown Sex and Gender Information Value Date Recorded Sex Assigned at Not on file Legal Sex Female 7:21 PM BUHR DRESSER Gender Identity Female 03/25/2021 11:48 AM CDT [...] on filedocumented in this encounter Care Teams Service Technician Copier Relationship Specialty Start Date End Date John Tavares MD PCP - General 11/09/16 John Tavares MD PCP - General 05/27/13 11/08/16 Jonathon Najera MD [address] [address] Assembler Tubing Cardiology 05/30/17 documented as of this encounter
--- OUTSIDE RECORDS SUMMARY | 2024-10-20 20:01 | XMS_ITS | Encounter Summary ---
Author Organization [facility] Address [address] [address] Care Team Providers Care Burr Picker Name Role Phone John Tavares MD Primary Care Provider + [phone] John Tavares MD Primary Care Provider + [phone] Jonathon Najera MD Unavailable [phone] Encounter Details Date Type Department Care Team (Late st Contact Info) Description 10/03/2016 Orders Only [facility] ProviderNiharika MD [address] [place] [address] Social History Tobacco Use Types Packs/Day Years Used Date Smoking Tobacco: Former Cigarettes Q uit: 08/12/1997 Alcohol Use Standard Drinks/Week Comments Yes 0 (1 standard drink = 0.6 oz pur e alcohol) Comments Unknown Sex and Gender Information Value Date Recorded Sex Assigned at Not on file Legal Sex Female 7:21 PM STORE ASSOCIATE Gender Identity Female 03/25/2021 11:48 AM CDT [...] on filedocumented in this encounter Care Teams Burr Picker Relationship Specialty Start Date End Date John Tavares MD PCP - General 11/09/16 John Tavares MD PCP - General 05/27/13 11/08/16 Jonathon Najera MD [address] [address] Clinical Care Manager Cardiology 05/30/17 documented as of this encounter
--- OUTSIDE RECORDS SUMMARY | 2024-10-20 20:01 | XMS_ITS | Patient Health Summary ---
Author Organization [facility] Address [address] [facility] [place] [address] Care Team Providers Care Etl Informatica Developer Name Role Phone John Tavares MD Primary Care Provider [phone] Note from [facility],non-owned Affiliates and Associated Physician Practices is amultiple site organization consisting of ambulatory clinics and hospital sitesin [place], [place], [place] and [place]. This disclosure is being madepursuant to the Care Everywhere program and may not contain all information available regarding this patient. Last updated 18.[facility] Allergies No known active allergies Immunizations * [...] AM CDT) Case Report Dermatopathology Report Case: [id number] Authorizing Provider: John Tavares MD Collected: 11/06/2023 03:33 AM Ordering Location: [facility] - Received: 11/07/2023 07:12 AM [...] characteristic determined by the Dermatopathology Laboratory at [facility], directed by Dr. [place] Trujillo. These tests need not be, and therefore are not, approved by the [place] Food and Drug Administration. The tests are used for clinical purposes. Billing Codes Specimen Charges Stain Charges 06762 1 4 1:35 PM CDT DERMATOPATHOLOGY LABORATORY Embedded Images 1:35 PM CDT DERMATOPATHOLOGY LABORATORY Pathology/Cytolo gy TISSUE SPECIMEN FROM SKIN / Unknown 11/06/2023 3:33 AM CDT 11/07/2023 7:12 AM CDT John Tavares MD LAB - PATHOLOGY/CYTO LOGY ORDERABLES DERMATOPATHOLOGY LABORATORY [facility] - Department of Dermatology [facility] Medicine [address] [place] [address], [address]rd [address] [phone] Care Teams Etl Informatica Developer Relationship Specialty Start Date End Date John Tavares MD [address] [place] [address] PCP - General Family Medicine 06/18/17
--- OUTSIDE RECORDS SUMMARY | 2024-10-20 20:01 | XMS_ITS | Clinical Summary ---
Author Organization [facility] Address [address] [place] [address] Care Team Providers Care Mud Jack Operator Name Role Phone John Tavares MD Primary Care Provider [phone] Jonathon Najera MD Unavailable [phone] Allergies Active Allergy Reactions Criticality Noted Date [...] Department Care Team Description 08/25/2024 Orders Only [facility] Medical [facility] Cardiology [address] [place] [phone] Jonathon Najera MD Presence of cardiac pacemaker (Primary Dx); SSS (sick sinus syndrome) (HCC) 08/19/2024 9:45 AM DEPUTY SHERIFF K9 HANDLER Ancillary Procedure [facility] Cardiology [address] [place] [phone] Presence of cardiac pacemaker (Primary Dx); SSS (sick sinus syndrome) (HCC); PAF (paroxysmal atrial fibrillation) (HCC); NSVT (nonsustained ventricular tachycardia) ([facility]) from Last 3 Months Surgical History Surgery [...] on file Legal Sex Female 7:21 PM DEPUTY SHERIFF K9 HANDLER Gender Identity Female 03/25/2021 11:48 AM CDT Sexual Orientation Not on file Obstetrics History Last Filed Vital Signs Vital Sign Reading Time Taken Comments Blood Pressure 116/82 04/03/2024 2:07 PM CDT Pulse 78 04/03/2024 2:07 PM CDT Temperature 36.4 C (97.5 F) 10/21/2020 12:59 PM DEPUTY SHERIFF K9 HANDLER Respiratory Rate 16 04/03/2024 2:07 PM CDT [...] history exists Medical Devices Implanted Type Area Road Oiling Truck Driver Device Identifier Shelf Expiration Date Model / Serial / Lot Pacemaker-06/22 Implanted:06/22 by Cely Coffey MD (Quantity not on file) Pacemaker Chest Medtronic SSS, Afib / / CHRONIC ATRIAL LEAD04/23/19 96 Procedures Procedure Name Priority Date/Time Associated Diagnosis Comments DEVICE CHECK - REMOTE Routine 08/25/2024 12:03 PM DEPUTY SHERIFF K9 HANDLER SSS (sick sinus syndrome) (HCC) PAF (paroxysmal atrial fibrillation) (HCC) NSVT (nonsustained ventricular tachycardia) (HCC) from Last 3 Months Results * DEVICE CHECK - REMOTE (08/25/2024 12:03 PM DEPUTY SHERIFF K9 HANDLER) Anatomical Region Laterality Modality Other Narrative 09/22/2024 4:06 PM DEPUTY SHERIFF K9 HANDLER Medtronic Dual Pacemaker. Dx; SSS, Afib. DOI 06/22/2016 + RV lead. Chronic atrial lead 04/23/1996. Carelink remote monitoring. Office pacer checks Q1 yr. Routine AAIR <> DDDR Pacemaker Remote. Transmission attached. Battery status: 2.74 V, 25 months remaining battery life to MCKENZIE. Stable lead impedances, pacing and sensing thresholds. Presenting rhythm: A paced/V sensed AP-99.6%, BUSINESS PROCESS EXPERT-0.4% 1 AT/AF episodes noted, longest episode was 6 seconds in duration, IEGM demonstrates AT/AF. AF [place] < 0.1%. 1 Ventricular high rate episodes detected, IEGM demonstrates 5 seconds NSVT. Medications: ASA 325 mg, diltiazem 240 mg, lisinopril 20 mg See scanned report. Office pacemaker follow up: 06/16/25 CareLink remote f/u 11/18/24. Roman Kidd, RN us Jonathon Najera MD CV CARDIAC SERVICES PROCE [facility] Final Result from Last 3 Months Insurance MEDICARE [facility] [place] [address] MEDICARE [facility] Care Teams Mud Jack Operator Relationship Specialty Start Date End Date John Tavares MD PCP - General 11/09/16 Jonathon Najera MD [address] [facility] [address] [place] [address] Batch Plant Operator Cardiology 05/30/17
--- OUTSIDE RECORDS SUMMARY | 2024-10-20 20:01 | XMS_ITS | Encounter Summary ---
Author Organization [facility] Address [address] [address] Care Team Providers Care Crm Campaign Manager Name Role Phone John Tavares MD Primary Care Provider [phone] Jonathon Najera MD Unavailable [phone] Encounter Details Date Type Department Care Team (Late st Contact Info) Description 12/10/2016 Orders Only [facility] Provider, MD Niharika [address] [place] [address] Social History Tobacco Use Types Packs/Day Years Used Date Smoking Tobacco: Former Cigarettes Q uit: 08/12/1997 Alcohol Use Standard Drinks/Week Comments Yes 0 (1 standard drink = 0.6 oz pur e alcohol) Comments Unknown Sex and Gender Information Value Date Recorded Sex Assigned at Not on file Legal Sex Female 7:21 PM DIGITAL ART DIRECTOR Gender Identity Female 03/25/2021 11:48 AM [...] on filedocumented in this encounter Care Teams Crm Campaign Manager Relationship Specialty Start Date End Date John Tavares MD PCP - General 11/09/16 Jonathon Najera MD [address] [address] Fixture Builder Cardiology 05/30/17 documented as of this encounter
--- OUTSIDE RECORDS SUMMARY | 2024-10-20 20:01 | XMS_ITS | Encounter Summary ---
Author Organization [facility] Address [address] [address] Care Team Providers Care Vascular Technician Name Role Phone John Tavares MD Primary Care Provider + [phone] John Tavares MD Primary Care Provider + [phone] Jonathon Najera MD Unavailable [phone] Encounter Details Date Type Department Care Team (Late st Contact Info) Description 09/18/2016 Orders Only [facility] ProviderNiharika MD [address] [place] [address] Social History Tobacco Use Types Packs/Day Years Used Date Smoking Tobacco: Former Cigarettes Q uit: 08/12/1997 Alcohol Use Standard Drinks/Week Comments Yes 0 (1 standard drink = 0.6 oz pur e alcohol) Comments Unknown Sex and Gender Information Value Date Recorded Sex Assigned at Not on file Legal Sex Female 7:21 PM PARA PROFESSIONAL Gender Identity Female 03/25/2021 11:48 AM CDT [...] on filedocumented in this encounter Care Teams Vascular Technician Relationship Specialty Start Date End Date John Tavares MD PCP - General 11/09/16 John Tavares MD PCP - General 05/27/13 11/08/16 Jonathon Najera MD [address] [address] Psychologist Industrial Organizational Cardiology 05/30/17 documented as of this encounter
--- OUTSIDE RECORDS SUMMARY | 2024-10-20 20:01 | XMS_ITS | Continuity of Care Document ---
Author Name [facility] Organization [facility] Care Team Providers Care Underwater Hunter Trapper Name Role Phone [facility] Unavailable Unavailable Immunizations Combined list of available immunizations from the Department of Defense and Veterans Affairs facilities. Immunization Series Date Given Administered By Site Reaction Lot Number CVX Code Drug Slackman Status Comments Source COVID-19 (Videobot), MRNA, LNP-S, PF, 30 MCG/0.3 ML DOSE, IVONNE-SUCROSE (AGES 12+ YEARS) 4 2021 217 complet ed PFR; [id number]; 2 [facility] Bear
--- OUTSIDE RECORDS SUMMARY | 2024-10-20 20:01 | XMS_ITS | Encounter Summary ---
Author Organization [facility] Medical Group Address [address] [address] Care Team Providers Care Pharmacy Technician Name Role Phone John Tavares MD Primary Care Provider + [phone] John Tavares MD Primary Care Provider + [phone] Jonathon Najera MD Unavailable [phone] Encounter Details Date Type Department Care Team (Late st Contact Info) Description 08/15/2016 Orders Only [facility] ProviderNiharika MD [address] [place] [address] Social History Tobacco Use Types Packs/Day Years Used Date Smoking Tobacco: Former Cigarettes Q uit: 08/12/1997 Alcohol Use Standard Drinks/Week Comments Yes 0 (1 standard drink = 0.6 oz pur e alcohol) Comments Unknown Sex and Gender Information Value Date Recorded Sex Assigned at Not on file Legal Sex Female 7:21 PM APPLICATION CHEMIST Gender Identity Female 03/25/2021 11:48 AM CDT [...] on filedocumented in this encounter Care Teams Pharmacy Technician Relationship Specialty Start Date End Date John Tavares MD PCP - General 11/09/16 John Tavares MD PCP - General 05/27/13 11/08/16 Jonathon Najera MD [address] [address] Data Integration Analyst Cardiology 05/30/17 documented as of this encounter
--- OUTSIDE RECORDS SUMMARY | 2024-10-20 20:01 | XMS_ITS | Encounter Summary ---
Author Organization [facility] Address [address] [place] [address] Care Team Providers Care Food And Beverage Cashier Name Role Phone John Tavares MD Primary Care Provider [phone] Encounter Details Date Type Department Care Team (Late st Contact Info) Description 11/06/2023 Lab Requisition [facility] - [facility]ermPath Lab [address] [place] [address] John Tavares MD [address] [place] [address] Social History Tobacco Use Types [...] AM CDT) Case Report Dermatopathology Report Case: [id number] Authorizing Provider: John Tavares MD Collected: 11/06/2023 03:33 AM Ordering Location: [facility] - Received: 11/07/2023 07:12 [...] characteristic determined by the Dermatopathology Laboratory at [facility], directed by Dr. [place] Trujillo. These tests need not be, and therefore are not, approved by the [place] Food and Drug Administration. The tests are used for clinical purposes. Billing Codes Specimen Charges Stain Charges 44502 1 4 1:35 PM CDT DERMATOPATHOLOGY LABORATORY Embedded Images 1:35 PM CDT DERMATOPATHOLOGY LABORATORY Pathology/Cytolo gy TISSUE SPECIMEN FROM SKIN / Unknown 11/06/2023 3:33 AM CDT 11/07/2023 7:12 AM CDT John Tavares MD LAB - PATHOLOGY/CYTO LOGY ORDERABLES DERMATOPATHOLOGY LABORATORY [facility] - Department of Dermatology [facility] Medicine [address] [place] [address], [address] [phone] documented in this encounter Visit Diagnoses Not on filedocumented in this encounter Care Teams Food And Beverage Cashier Relationship Specialty Start Date End Date John Tavares MD [address] [place] [address] PCP - General Family Medicine 06/18/17 documented as of this encounter
--- OUTSIDE RECORDS SUMMARY | 2024-10-20 20:01 | XMS_ITS | Referral Summary ---
Author Organization [facility] Address [address] [place] [address] Care Team Providers Care Learning Disabled Teacher Name Role Phone John Tavares MD Primary Care Provider [phone] Source Comments [facility],non-owned Affiliates and Associated Physician Practices is amultiple site organization consisting of ambulatory clinics and hospital sitesin [place], [place], [place] and [place]. This disclosure is being madepursuant to the Care Everywhere program and may not contain all information available regarding this patient. Last updated 18.[facility] [employer] Allergies No known active allergies Immunizations Name [...] of Treatment Not on file Care Teams Learning Disabled Teacher Relationship Specialty Start Date End Date John Tavares MD [address] [place] [address] PCP - General Family Medicine 06/18/17
--- OUTSIDE RECORDS SUMMARY | 2024-10-20 20:01 | XMS_ITS | Clinical Summary ---
Author Organization [facility] [employer] Address [address] [facility] [place] [address] Care Team Providers Care Intervention Manager Name Role Phone John Tavares MD Primary Care Provider [phone] Source Comments [facility] [employer],non-owned Affiliates and Associated Physician Practices is amultiple site organization consisting of ambulatory clinics and hospital sitesin [place], [place], [place] and [place]. This disclosure is being madepursuant to the Care Everywhere program and may not contain all information available regarding this patient. Last updated 18.[facility] [employer] Allergies No known active allergies Immunizations Name [...] age to complete this topic Care Teams Intervention Manager Relationship Specialty Start Date End Date John Tavares MD [address] [place] [address] PCP - General Family Medicine 06/18/17
--- OUTSIDE RECORDS SUMMARY | 2024-10-20 20:01 | XMS_ITS | Referral Summary ---
Author Organization [facility] Address [address] [place] [address] Care Team Providers Care Batt Machine Operator Name Role Phone John Tavares MD Primary Care Provider [phone] Jonathon Najera MD Unavailable [phone] Encounters Date Type Department Care Team Description 08/25/2024 Orders Only [facility] Cardiology [address] [place] [phone] Jonathon Najera MD Presence of cardiac pacemaker (Primary Dx); SSS (sick sinus syndrome) (HCC) 08/19/2024 9:45 AM DESSERT CUP MACHINE FEEDER Ancillary Procedure [facility] Cardiology [address] [place] [phone] Presence of cardiac pacemaker (Primary Dx); SSS (sick sinus syndrome) (HCC); PAF (paroxysmal atrial fibrillation) (HCC); NSVT (nonsustained ventricular tachycardia) ([facility]) from Last 3 Months Allergies Active Allergy [...] on file Legal Sex Female 7:21 PM DESSERT CUP MACHINE FEEDER Gender Identity Female 03/25/2021 11:48 AM CDT Sexual Orientation Not on file Last Filed Vital Signs Vital Sign Reading Time Taken Comments Blood Pressure 116/82 04/03/2024 2:07 PM CDT Pulse 78 04/03/2024 2:07 PM CDT Temperature 36.4 C (97.5 F) 10/21/2020 12:59 PM DESSERT CUP MACHINE FEEDER Respiratory Rate 16 04/03/2024 2:07 PM CDT Oxygen Saturation 97% 03/22/2023 9:56 AM CDT Inhaled Oxygen Concentration - - Weight 101.2 kg (223 lb) 04/03/2024 2:07 PM CDT Height 167.6 cm (5' 6 ) 04/03/2024 2:07 PM CDT Body Mass Index 35.99 04/03/2024 2:07 PM CDT Plan of Treatment Not on file Medical Devices Implanted Type Area Plastics Repairer Device Identifier Shelf Expiration Date Model / Serial / Lot Pacemaker-06/22 Implanted:06/22 by Cely Coffey MD (Quantity not on file) Pacemaker Chest Medtronic SSS, Afib / / CHRONIC ATRIAL LEAD04/23/19 96 Procedures Procedure Name Priority Date/Time Associated Diagnosis Comments DEVICE CHECK - REMOTE Routine 08/25/2024 12:03 PM DESSERT CUP MACHINE FEEDER SSS (sick sinus syndrome) (HCC) PAF (paroxysmal atrial fibrillation) (HCC) NSVT (nonsustained ventricular tachycardia) (HCC) from Last 3 Months Results * DEVICE CHECK - REMOTE (08/25/2024 12:03 PM DESSERT CUP MACHINE FEEDER) Anatomical Region Laterality Modality Other Narrative 09/22/2024 4:06 PM DESSERT CUP MACHINE FEEDER Medtronic Dual Pacemaker. Dx; SSS, Afib. DOI 06/22/2016 + RV lead. Chronic atrial lead 04/23/1996. Carelink remote monitoring. Office pacer checks Q1 yr. Routine AAIR <> DDDR Pacemaker Remote. Transmission attached. Battery status: 2.74 V, 25 months remaining battery life to MCKENZIE. Stable lead impedances, pacing and sensing thresholds. Presenting rhythm: A paced/V sensed AP-99.6%, SOLE SKIVER-0.4% 1 AT/AF episodes noted, longest episode was 6 seconds in duration, IEGM demonstrates AT/AF. AF [place] < 0.1%. 1 Ventricular high rate episodes detected, IEGM demonstrates 5 seconds NSVT. Medications: ASA 325 mg, diltiazem 240 mg, lisinopril 20 mg See scanned report. Office pacemaker follow up: 06/16/25 CareLink remote f/u 11/18/24. Roman Kidd RN Jonathon Najera MD CV CARDIAC SERVICES [facility] Final Result from Last 3 Months Insurance MEDICARE [facility] MEDICARE [facility] Care Teams Batt Machine Operator Relationship Specialty Start Date End Date Schueler, John F., MD PCP - General 11/09/16 Jonathon Najera MD [address] [facility] [address] [place] [id number] Curb Worker Cardiology 05/30/17
--- OUTSIDE RECORDS SUMMARY | 2024-10-20 20:01 | XMS_ITS | Encounter Summary ---
Author Organization [facility] Address [address] [address] Care Team Providers Care University Relations Director Name Role Phone John Tavares MD Primary Care Provider Jonathon Najera MD Unavailable [phone] Encounter Details Date Type Department Care Team (Late st Contact Info) Description 12/31/2016 Orders Only [facility] Provider, MD Niharika [address] [place] [address] Social History Tobacco Use Types Packs/Day Years Used Date Smoking Tobacco: Former Cigarettes Q uit: 08/12/1997 Alcohol Use Standard Drinks/Week Comments Yes 0 (1 standard drink = 0.6 oz pur e alcohol) Comments Unknown Sex and Gender Information Value Date Recorded Sex Assigned at Not on file Legal Sex Female 7:21 PM FIXING MACHINE OPERATOR Gender Identity Female 03/25/2021 11:48 AM CDT [...] on filedocumented in this encounter Care Teams University Relations Director Relationship Specialty Start Date End Date John Tavares MD PCP - General 11/09/16 Jonathon Najera MD [address] [address] Appraisal Coordinator Cardiology 05/30/17 documented as of this encounter
--- OUTSIDE RECORDS SUMMARY | 2024-10-20 20:01 | XMS_ITS | Clinical Summary ---
Author Organization [facility] Address [address] [place] [address] Phone Care Team Providers Care Tire Service Supervisor Name Role Phone John Tavares MD Primary Care Provider [phone] Allergies Active Allergy Reactions Criticality Noted Date [...] Vaccine (#1) 2024 06/12/2021, 2016 Care Teams Tire Service Supervisor Relationship Specialty Start Date End Date John Tavares MD [address] [place] [address] PCP - General Family Medicine 09/20/21
[2024-10-20 20:10] LABS: Influenza A QL RT-PCR Negative (Negative); Influenza B QL RT-PCR Negative (Negative); SARS-CoV-2 RNA PCR Negative (Negative)
[2024-10-20] MEDS: KETOROLAC 15 MG/ML VIAL (*BKC) IV PUSH (20:52)
[2024-10-20] MEDS: FAMOTIDINE 20 MG/2 ML VIAL IV PUSH (20:54)
[2024-10-20] MEDS: MAG HYDROX/AL HYDROX/SIMETH 30 ML UDC PO (20:56)
--- NOTE | 2024-10-20 21:29 | ECG_ITS ---
Test Date: 2024-10-20 19:28:59 Measurements Intervals Cass Rate: 80 P: 137 NJ: 350 QRS: -21 QRSD: 127 T: 20 QT: 381 QTc: 440 Interpretive Statements ELECTRONIC ATRIAL PACEMAKER RIGHT BUNDLE BRANCH BLOCK [120+ ms QRS DURATION, UPRIGHT V1, 40+ ms S IN I/aVL/V4/V5/V6] SEPTAL MYOCARDIAL INFARCTION , OF INDETERMINATE AGE [40+ ms Q WAVE IN V1/V2] Compared to ECG 10/20/2024 16:02:13 NO SIGNIFICANT CHANGES Electronically Signed On 10-21-2024 13:24:59 CDT by Rita Calderon M.D.
== END 2024-10-20 22:18 | disposition home or self-care (01) ==
PROVIDERS: Emergency Medicine; Physician Assistant; Emergency Provider Student in an Organized Health Care Education/Training Program; PCP Family Medicine
DX: R07.9 Chest pain, unspecified (principal); K20.90 Esophagitis, unspecified without bleeding; K44.9 Diaphragmatic hernia without obstruction or gangrene; Z95.0 Presence of cardiac pacemaker; Z20.822 Contact with and (suspected) exposure to COVID-19; N18.2 Chronic kidney disease, stage 2 (mild); Z87.891 Personal history of nicotine dependence
CPT/HCPCS: 36415; 71046; 71275; 80053; 83690; 84484; 85025; 85610; 85730; 87636; 93005; 96374; 96375; 99284; A9270; J1885; J2405; J2470; Q9967

== ENCOUNTER 2025-02-05 16:31 | Outpatient (CLI) | payer MEDICARE, OTHER, SELFPAY ==
[2025-02-05 17:10] LABS: Hematocrit 40.3 % (37.0-47.0); Hemoglobin 12.7 g/dL (12.0-15.0); Mean Corpuscular HGB Conc 31.5 g/dl (32-36); Mean Corpuscular Hemoglobin 31.3 pg (26-34); Mean Corpuscular Volume 99.3 fl (80-100); Mean Platelet Volume 8.9 fl (7.4-10.4); Platelet Count Result 352 k/mm3 (150-375); Red Blood Count 4.06 M/mm3 (4.2-5.4); Red Cell Distribution Width 12.4 % (11.5-14.5)
[2025-02-05 17:24] LABS: Albumin Level 4.8 g/dL (3.5-5.1); Anion Gap 9 mmol/L (4-12); Blood Urea Nitrogen 20 mg/dL (7-17); Calcium 9.7 mg/dL (8.4-10.2); Carbon Dioxide 28 mmol/L (22-30); Chloride 97 mmol/L (98-107); Estimated Glomerular Filt Rate 50; Glucose 78 mg/dL (65-110); Phosphorus 3.9 mg/dL (2.5-4.5); Potassium 4.9 mmol/L (3.4-5.0); Sodium 134 mmol/L (137-145)
[2025-02-05 17:26] LABS: Total Protein Urine Random 9 mg/dL; Ur Ttl Prot Creatinine Ratio 0.21 mg/mg (0-0.20)
[2025-02-05 17:36] LABS: Parathyroid Intact 49.1 pg/mL (14.5-75.2)
== END 2025-02-05 16:32 | disposition home or self-care (01) ==
PROVIDERS: PCP Family Medicine; Visit Provider Internal Medicine Nephrology
DX: N18.31 Chronic kidney disease, stage 3a (principal)
CPT/HCPCS: 36415; 80069; 82570; 83970; 84156; 85027

== ENCOUNTER 2025-05-14 12:13 | Outpatient (CLI) | payer MEDICARE, OTHER, SELFPAY ==
--- NOTE | ~2025-05-14 | MM_ITS ---
EXAMINATION: MM screening [facility] BI w didier HISTORY: Screening TECHNIQUE: Craniocaudal and mediolateral oblique 3-D tomosynthesis images were obtained and synthetic 2-D images were generated. CAD analysis was submitted and interpreted. COMPARISON: Comparison to multiple prior studies sequentially, with oldest reviewed study dated 09/20/2015. BREAST PARENCHYMAL COMPOSITION: Not dense: There are scattered areas of fibroglandular density. FINDINGS: There is no evidence of suspicious mass, calcification, or architectural distortion to suggest malignancy in either breast. There has been no suspicious interval change. IMPRESSION: 1. No mammographic evidence of malignancy. 2. Recommend routine screening mammography in one year. BI-RADS Category 1: Negative Reviewed, dictated and finalized at location B.
--- OUTSIDE RECORDS SUMMARY | 2025-05-14 12:33 | XMS_ITS | Encounter Summary ---
Author Organization [facility] Address [address] [place] [address] Care Team Providers Care Water/Wastewater Project Engineer Name Role Phone John Tavares MD Primary Care Provider [phone] Encounter Details Date Type Department Care Team (Late st Contact Info) Description 11/06/2023 Lab Requisition [facility] - DermPath Lab [address] [place] [address] John Tavarse MD [address] [place] [address] Social History Tobacco Use Types Packs/Day Years Used Date Smoking Tobacco: Never Assessed Comments Unknown Sex and Gender Information Value Date Recorded Sex Assigned at Not on file Legal Sex Female 12:54 PM IS/IT PROJECT MANAGER Gender Identity Not on file Sexual Orientation Not on file documented as of this encounter Plan of Treatment Not on file documented as of this encounter Procedures Procedure Name Priority Date/Time Associated Diagnosis Comments DERMATOPATHOLOGY Routine 11/06/2023 3:33 AM CDT documented in this encounter Results * DERMATOPATHOLOGY (11/06/2023 3:33 AM CDT) Case Report Dermatopathology Report Case: [id number] Authorizing Provider: John Tavares MD Collected: 11/06/2023 03:33 AM Ordering Location: [facility] - Received: 11/07/2023 07:12 AM DermPath Lab Pathologist: Tamera Hess MD Specimen: Skin, left neck 1:35 PM CDT DERMATOPATHOLOGY LABORATORY Final Diagnosis Specimen A. SKIN, left neck: VERRUCA VULGARIS (B07.8) 1:35 PM CDT DERMATOPATHOLOGY LABORATORY at 1335 CDT Clinical History Changing Lesion. Check Margins. 1:35 [...] characteristic determined by the Dermatopathology Laboratory at [facility], directed by Dr. India Trujillo. These tests need not be, and therefore are not, approved by the [place] Food and Drug Administration. The tests are used for clinical purposes. Billing Codes Specimen Charges Stain Charges 87597 1 1:35 PM CDT DERMATOPATHOLOGY LABORATORY Embedded Images 1:35 PM CDT DERMATOPATHOLOGY LABORATORY Pathology/Cytolo gy TISSUE SPECIMEN FROM SKIN / Unknown 11/06/2023 3:33 AM CDT 11/07/2023 7:12 AM CDT us John Tavares MD LAB - PATHOLOGY/CYTOLOGY ORDE JC Final Result DERMATOPATHOLOGY LABORATORY [facility] - Department of Dermatology [facility] [address] [place] [address], [address] [phone] documented in this encounter Visit Diagnoses Not on filedocumented in this encounter Care Teams Water/Wastewater Project Engineer Relationship Specialty Start Date End Date John Tavares MD [address] [place] [address] PCP - General Family Medicine 06/18/17 documented as of this encounter
--- OUTSIDE RECORDS SUMMARY | 2025-05-14 12:33 | XMS_ITS | Encounter Summary ---
Author Organization [facility] Address [address] [facility] [address] [place] [address] Care Team Providers Care Hybrid Corn Breeder Name Role Phone John Tavares MD Primary Care Provider + [phone] John Tavares MD Primary Care Provider + [phone] Jonathon Najera MD Unavailable [phone] Encounter Details Date Type Department Care Team (Late st Contact Info) Description 09/18/2016 Orders Only [facility] Provider, MD Niharika [address] [place] [address] Social History Tobacco Use Types Packs/Day Years Used Date Smoking Tobacco: Former Cigarettes Q uit: 08/12/1997 Alcohol Use Standard Drinks/Week Comments Yes 0 (1 standard drink = 0.6 oz pur e alcohol) Comments Unknown Sex and Gender Information Value Date Recorded Sex Assigned at Not on file Legal Sex Female 7:21 PM ALUMINUM CONTAINER TESTER Gender Identity Female 03/25/2021 11:48 AM CDT Sexual Orientation Not on file documented as of this encounter Plan of Treatment Not on file documented as of this encounter Procedures Procedure Name Priority Date/Time Associated Diagnosis Comments CARDIOLOGY REPORT 09/18/2016 documented in this encounter Results * CARDIOLOGY REPORT (09/18/2016) Anatomical Region Laterality Modality Other Narrative 09/18/2016 Ordered by an unspecified provider. Historical Provider [facility] CARDIAC SERVICES PROCE DURES Final Result documented in this encounter Visit Diagnoses Not on filedocumented in this encounter Care Teams Hybrid Corn Breeder Relationship Specialty Start Date End Date John Tavares MD PCP - General 11/09/16 John Tavares MD PCP - General 05/27/13 11/08/16 Jonathon Najera MD [address] [place] [address] Innovations Paraprofessional Cardiology 05/30/17 documented as of this encounter
--- OUTSIDE RECORDS SUMMARY | 2025-05-14 12:33 | XMS_ITS | Encounter Summary ---
Author Organization [facility] Address [address] [facility] [address] [place] [address] Care Team Providers Care Art Gallery Director Name Role Phone John Tavares MD Primary Care Provider + [phone] John Tavares MD Primary Care Provider + [phone] Jonathon Najera MD Unavailable [phone] Encounter Details Date Type Department Care Team (Late st Contact Info) Description 08/15/2016 Orders Only [facility] Provider, MD Niharika [address] [place] [address] Social History Tobacco Use Types Packs/Day Years Used Date Smoking Tobacco: Former Cigarettes Q uit: 08/12/1997 Alcohol Use Standard Drinks/Week Comments Yes 0 (1 standard drink = 0.6 oz pur e alcohol) Comments Unknown Sex and Gender Information Value Date Recorded Sex Assigned at Not on file 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 Historical Provider CV CARDIAC SERVICES PROCE DURES Final Result documented in this encounter Visit Diagnoses Not on filedocumented in this encounter Care Teams Art Gallery Director Relationship Specialty Start Date End Date John Tavares MD PCP - General 11/09/16 John Tavares MD PCP - General 05/27/13 11/08/16 Jonathon Najera MD [address] [place] [address] Senior Sql Server Database Developer Cardiology 05/30/17 documented as of this encounter
--- OUTSIDE RECORDS SUMMARY | 2025-05-14 12:33 | XMS_ITS | Encounter Summary ---
Author Organization [facility] Address [address] [facility] [address] [place] [address] Care Team Providers Care Wood Carving Machine Operator Name Role Phone John Tavares MD Primary Care Provider [phone] Jonathon Najera MD Unavailable [phone] Encounter Details Date Type Department Care Team (Late st Contact Info) Description 11/21/2016 Orders Only [facility] ProviderNiharika MD [address] [place] [address] Social History Tobacco Use Types Packs/Day Years Used Date Smoking Tobacco: Former Cigarettes Q uit: 08/12/1997 Alcohol Use Standard Drinks/Week Comments Yes 0 (1 standard drink = 0.6 oz pur e alcohol) Comments Unknown Sex and Gender Information Value Date Recorded Sex Assigned at Not on file Legal Sex Female 7:21 PM INTEGRATION ARCHITECT Gender Identity Female 03/25/2021 11:48 AM CDT [...] on filedocumented in this encounter Care Teams Wood Carving Machine Operator Relationship Specialty Start Date End Date John Tavares MD PCP - General 11/09/16 Jonathon Najera MD [address] [place] [address] Adjutant General Cardiology 05/30/17 documented as of this encounter
--- OUTSIDE RECORDS SUMMARY | 2025-05-14 12:33 | XMS_ITS | Encounter Summary ---
Author Organization [facility] Address [address] [facility] [address] [place] [address] Care Team Providers Care Car Unloader Helper Name Role Phone John Tavares MD Primary Care Provider + [phone] Jonathon Najera MD Unavailable [phone] Encounter Details Date Type Department Care Team (Late st Contact Info) Description 12/10/2016 Orders Only [facility] ProviderNiharika MD [address] [place] [address] Social History Tobacco Use Types Packs/Day Years Used Date Smoking Tobacco: Former Cigarettes Q uit: 08/12/1997 Alcohol Use Standard Drinks/Week Comments Yes 0 (1 standard drink = 0.6 oz pur e alcohol) Comments Unknown Sex and Gender Information Value Date Recorded Sex Assigned at Not on file Legal Sex Female 7:21 PM STRETCHING MACHINE OPERATOR Gender Identity Female 03/25/2021 11:48 [...] on filedocumented in this encounter Care Teams Car Unloader Helper Relationship Specialty Start Date End Date John Tavares MD PCP - General 11/09/16 Jonathon Najera MD [address] [facility] [place] [address] Personal Computer Specialist Cardiology 05/30/17 documented as of this encounter
--- OUTSIDE RECORDS SUMMARY | 2025-05-14 12:33 | XMS_ITS | Encounter Summary ---
Author Organization [facility] Address [address] [facility] [address] [place] [address] Care Team Providers Care Ornamental Iron Worker Name Role Phone John Tavares MD Primary Care Provider + [phone] Jonathon Najera MD Unavailable [phone] Encounter Details Date Type Department Care Team (Late st Contact Info) Description 12/31/2016 Orders Only [facility] ProviderNiharika MD [address] [place] [address] Social History Tobacco Use Types Packs/Day Years Used Date Smoking Tobacco: Former Cigarettes Q uit: 08/12/1997 Alcohol Use Standard Drinks/Week Comments Yes 0 (1 standard drink = 0.6 oz pur e alcohol) Comments Unknown Sex and Gender Information Value Date Recorded Sex Assigned at Not on file Legal Sex Female 7:21 PM ORACLE DATABASE ARCHITECT Gender Identity Female 03/25/2021 11:48 AM [...] on filedocumented in this encounter Care Teams Ornamental Iron Worker Relationship Specialty Start Date End Date John Tavares MD PCP - General 11/09/16 Jonathon Najera MD [address] [facility] [place] [address] Doweler Cardiology 05/30/17 documented as of this encounter
--- OUTSIDE RECORDS SUMMARY | 2025-05-14 12:33 | XMS_ITS | Encounter Summary ---
Author Organization [facility] Address [address] [facility] [address] [place] [address] Care Team Providers Care Certified Substance Abuse Counselor Name Role Phone John Tavares MD Primary Care Provider + [phone] John Tavares MD Primary Care Provider + [phone] Jonathon Najera MD Unavailable [phone] Encounter Details Date Type Department Care Team (Late st Contact Info) Description 08/29/2016 Orders Only [facility] Provider, MD Niharika [address] [place] [address] Social History Tobacco Use Types Packs/Day Years Used Date Smoking Tobacco: Former Cigarettes Q uit: 08/12/1997 Alcohol Use Standard Drinks/Week Comments Yes 0 (1 standard drink = 0.6 oz pur e alcohol) Comments Unknown Sex and Gender Information Value Date Recorded Sex Assigned at Not on file Legal Sex Female 7:21 PM PALS NURSE Gender Identity Female 03/25/2021 11:48 AM CDT Sexual Orientation Not on file documented as of this encounter Plan of Treatment Not on file documented as of this encounter Procedures Procedure Name Priority Date/Time Associated Diagnosis Comments CARDIOLOGY REPORT 08/29/2016 documented in this encounter Results * CARDIOLOGY REPORT (08/29/2016) Anatomical Region Laterality Modality Other Narrative 08/29/2016 Ordered by an unspecified provider. Historical Provider CV CARDIAC SERVICES PROCE DURES Final Result documented in this encounter Visit Diagnoses Not on filedocumented in this encounter Care Teams Certified Substance Abuse Counselor Relationship Specialty Start Date End Date John Tavares MD PCP - General 11/09/16 John Tavares MD PCP - General 05/27/13 11/08/16 Jonathon Najera MD [address] [place] [address] Highway Inspector Cardiology 05/30/17 documented as of this encounter
--- OUTSIDE RECORDS SUMMARY | 2025-05-14 12:33 | XMS_ITS | Encounter Summary ---
Author Organization [facility] Address [address] [facility] [address] [place] [address] Care Team Providers Care Quality Assurance Practice Manager Name Role Phone John Tavares MD Primary Care Provider + [phone] John Tavares MD Primary Care Provider + [phone] Jonathon Najera MD Unavailable [phone] Encounter Details Date Type Department Care Team (Late st Contact Info) Description 10/03/2016 Orders Only [facility] Provider, MD Niharika [address] [place] [address] Social History Tobacco Use Types Packs/Day Years Used Date Smoking Tobacco: Former Cigarettes Q uit: 08/12/1997 Alcohol Use Standard Drinks/Week Comments Yes 0 (1 standard drink = 0.6 oz pur e alcohol) Comments Unknown Sex and Gender Information Value Date Recorded Sex Assigned at Not on file Legal Sex Female 7:21 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 Historical Provider CV CARDIAC SERVICES PROCE DURES Final Result documented in this encounter Visit Diagnoses Not on filedocumented in this encounter Care Teams Quality Assurance Practice Manager Relationship Specialty Start Date End Date John Tavares MD PCP - General 11/09/16 John Tavares MD PCP - General 05/27/13 11/08/16 Jonathon Najera MD [address] [place] [address] Geothermal Installer Cardiology 05/30/17 documented as of this encounter
--- OUTSIDE RECORDS SUMMARY | 2025-05-14 12:33 | XMS_ITS | Clinical Summary ---
Author Organization [facility] Address [address] [facility] [place] [address] Care Team Providers Care Outdoor Adventure Leader Name Role Phone John Tavares MD Primary Care Provider [phone] Source Comments [facility],non-owned Affiliates and Associated Physician Practices is amultiple site organization consisting of ambulatory clinics and hospital sitesin [place], [place], [place] and [place]. This disclosure is being madepursuant to the Care Everywhere program and may not contain all information available regarding this patient. Last updated 18.[facility] Allergies No known active allergies Immunizations Immunization Administration Dates Next Due INFLUENZA VACCINE, QUADR. (F LUZONE; FLULAVAL; FLUARIX; AFLURIA QUADRIVALENT; 6MO+), 0.5 ML (IIV4) 06/18/2017 Social History Tobacco Use Types Packs/Day Years Used Date Smoking Tobacco: Never Assessed Comments Unknown Sex and Gender Information Value Date Recorded Sex Assigned at Not on file Legal Sex Female 12:54 PM DIETITIAN CONSULTANT Gender Identity Not on file Sexual Orientation [...] 2002 ZOSTER VACCINE (1 of 2) 2002 DEPRESSION SCREENING 08/12/2024 COVID-19 VACCINE (1 - 2023-2 5 season) 2025 INFLUENZA VACCINE (#1) 2025 06/18/2017 Respiratory Syncytial Virus (RSV) Vaccine Pt: or [...] to complete this topic MENINGOCOCCAL (Group B) VACC INE SHARED DECISION-MAKING Aged Out No longer eligibl e based on patient's age to complete this topic MENINGOCOCCAL GROUPS A/C/Y/W VACCINE Aged Out No longer eligible b ased on patient's age to complete this topic Insurance MEDICARE [facility] Care Teams Outdoor Adventure Leader Relationship Specialty Start Date End Date John Tavares MD [address] [place] [address] PCP - General Family Medicine 06/18/17
--- OUTSIDE RECORDS SUMMARY | 2025-05-14 12:33 | XMS_ITS | Clinical Summary ---
Author Organization [facility] Address [address] [place] [address] Care Team Providers Care Cooling System Operator Name Role Phone John Tavares MD Primary Care Provider Jonathon Najera MD Unavailable [phone] Allergies Active Allergy Reactions Criticality Noted Date Comments Atorvastatin Other (See comments) 10/20/2024 IRREGULAR HEAR RATE Beta-Blockers (Beta-Adrenergic Blocking Agts) Other (See comments),Nausea & Vomiting High 10/20/2024 Exacerbate asthma. Prochlorperazine Rash Medium Medications albuterol [...] 3 8 Active SYMBICORT 80-4.5 mcg/actuation inhaler Inhale 2 puffs 2 (two) times a day 0 9 Active hydrOXYzine (ATARAX) 25 mg tablet Take 1 tablet (25 mg total) by mouth 2 (two) times a day as needed 4 Active Active Problems Problem Noted Date Diagnosed Date Angina pectoris, unstable 04/06/2025 Chest pain 04/06/2025 Preop cardiovascular exam 04/03/2024 Pre-operative cardiovascular examination [...] Encounters Date Type Department Care Team Description 04/30/2025 11:30 AM CDT - 04/30/2025 1:00 PM CDT Surgery [facility] Cardiac Catheterization Lab [address] [place] [id number] Aniceto Mojica MD LEFT HEART CATHETERIZATION WITH CORONARY ANGIOGRAPHY AND WITH OR WITHOUT LEFT VENTRICULOGRAM [id number] 04/30/2025 9:18 AM CDT - 04/30/2025 2:59 PM CDT Hospital Encounter [facility] Cardiac Catheterization Lab [address] [place] [id number] Aniceto Mojica MD Angina pectoris, unstable (HCC) Discharge Disposition: Discharge to home or self care 04/06/2025 1:00 PM CDT Office Visit [facility] Cardiology [address] [place] [phone] Jonathon Najera MD Presence of cardiac pacemaker (Primary Dx); Nonrheumatic aortic valve stenosis; Essential hypertension; NSVT (nonsustained ventricular tachycardia) (HCC); Nonrheumatic mitral valve regurgitation; Lipid screening; Chest pain, unspecified type 04/06/2025 Telephone [facility] Cardiology [address] [place] [phone] Jonathon Najera MD 02/24/2025 8:45 AM CDT Ancillary Procedure [facility] Cardiology [address] [facility] [address] [place] [phone] Presence of cardiac pacemaker; SSS (sick sinus syndrome) (HCC) from Last 3 Months Surgical History Surgery Date Site/Laterality Comments FRACTURE SURGERY 1985 HYSTERECTOMY 1979 SPINE SURGERY 2003 OTHER SURGICAL HISTORY modified maze procedure to isolate the SA node INSERT / REPLACE / REMOVE PACEMAKER VENA CAVA FILTER PLACEMENT CARDIAC CATHETERIZATION 04/30/2025 N/A Procedure: LEFT HEART CATHETERIZATION WITH CORONARY ANGIOGRAPHY AND WITH OR WITHOUT LEFT VENTRICULOGRAM [id number]; Surgeon: Aniceto Mojica MD; Location: CARDIAC DIRECTOR OF OUTREACH; Service: Cardiovascular; Laterality: N/A; Medical devices from this surgery are in the Medical Devices section. Medical History Medical History Date Comments Hx Other Medical aasthma, status post hysterectomy, A. fib, DVT Hx Other Medical sstatus post IV C filter, status post maze procedu Hx Other Medical lumbar laminect rai and discectomy, hypertension, E Anxiety 2016 Arthritis 2009 Asthma Childhood Cataract 2017 Heart disease 1994 Hypertension 2006 Chronic kidney disease 2021 Menstrual problem 1973 Angina pectoris, unstable (HCC) Motion sickness Arrhythmia History of deep vein thrombo sis (DVT) of lower extremity left leg Family History Medical History Relation Name Comments Asthma Brother Juan Diabetes Brother Juan Early Brother Juan Heart attack Brother Juan Heart disease Brother Juan Hypertension Brother Juan Hypertension Father Johnson Other Father Johnson cerebral hemorr salvatore; Cause of : cerebral hemorrhage Stroke Father Johnson Arthritis Mother Shruthi Diabetes Mother Shruthi Hypertension Mother Shruthi Other Mother Shruthi old age; Cause of : old age Relation Name Status Comments Brother Juan Father Johnson (Age 73) Mother Shruthi (Age 87) Social History Tobacco Use Types Packs/Day Years Used Date Smoking Tobacco: Former Cigarettes 0.2 5 0 03/25/2009 - 09/19/2013 Smokeless Tobacco: Never Tobacco Cessation:Counseling Given: Not Answered Alcohol Use Standard Drinks/Week Comments Yes 4 (1 standard drink = 0.6 oz pur e alcohol) AUDIT-C Answer Date Recorded Q1: How often do you have a drink containing alcohol? 4 or more times a week 04/28/2025 Q2: How many drinks containi ng alcohol do you have on a typical day when you are drinking? 1 or 2 Q3: How often do you have si x or more drinks on one occasion? Never 04/28/2025 Personal Safety Answer Date Recorded Have you ever been in or are you currently in a harmful physical or emotional relationship or is someone making you feel afraid or unsafe? 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 Gender Identity Female 03/25/2021 11:48 AM CDT Sexual Orientation Not on file Obstetrics History Last Filed Vital Signs Vital Sign Reading Time Taken Comments Blood Pressure 129/63 04/30/2025 2:25 PM CDT Pulse 80 04/30/2025 2:35 PM CDT Temperature 36.7 C (98.1 F) 04/30/2025 10:02 AM CDT Respiratory Rate 17 04/30/2025 10:02 AM CDT Oxygen Saturation 95% 04/30/2025 2:35 PM CDT Inhaled Oxygen Concentration - - Weight 103.6 kg (228 lb 8 oz) 04/30/2025 10:02 A M CDT Height 167.6 cm (5' 6) 04/30/2025 10:02 AM CDT Body Mass Index 36.88 04/30/2025 10:02 AM CDT Plan of Treatment Health Maintenance Due Date Last Done Comments Breast Cancer Screening-Mammogram 1950 Colon Cancer Screening-Colonoscopy 1950 Depression Screening 1950 Hepatitis C Screening 1950 Osteoporosis Screening-Bone Density Scan 1950 DTaP/Tdap/Td Vaccine (1 - Tdap) 10/30/1963 Hepatitis B Screening 1970 Zoster Vaccine (1 of 2) 2002 Well Visit 65+ 2017 Covid-19 Vaccine (5 - 2024-2 6 season) 2025 01/01/2022, 06/06/2021, 10/27/2020, Additional history exists Influenza Vaccine (#1) 2025 4, 06/12/2021, 06/08/2019, Additional history exists Fall Risk Assessment 04/30/2026 04/30/2025 Pneumococcal vaccine 65+ Completed 06/08/ 019, 04/12/2019, 06/02/2018, Additional history exists Medical Devices Implanted Type Area Dough Molder Device Identifier Shelf Expiration Date Model / Serial / Lot Pacemaker-06/12 Implanted:06/12 by Cely Coffey MD (Quantity not on file) Pacemaker Chest Medtronic SSS, Afib / / CHRONIC ATRIAL LEAD 996 Vigil Vascular System Closure Repair Femoral Artery Suture Mediated Perclose Prostyle 71725-33 - [id number] Implanted:Qty: 1 on 04/30/2025 by Aniceto Mojica MD at [facility] Vascular 02/08/2027 [id number] Procedures Procedure Name Priority Date/Time Associated Diagnosis Comments LEFT HEART CATHETERIZATION WITH CORONARY ANGIOGRAPHY AND WITH AND WITHOUT LEFT VENTRICULOGRAM Routine 04/30/2025 11:51 AM CDT Angina pectoris, unstable (HCC) MODERATE SEDATION SAME MD JESSICA ADDL 15 MIN [id number] 04/30/2025 10:45 AM CDT Angina pectoris, unstable (HCC) MODERATE SEDATION 04/30/2025 10: 45 AM CDT Angina pectoris, unstable (HCC) EGFR STAT 04/30/2025 10:24 AM CDT DIFFERENTIAL AUTO STAT 04/30/2025 10: 24 AM CDT CBC WITH AUTO DIFFERENTIAL STAT 04/30/2025 10:24 AM CDT BASIC METABOLIC PANEL STAT 04/30/2025 10:24 AM CDT POCT LIPID PANEL Routine 04/06/2025 1:00 PM CDT Lipid screening DEVICE CHECK - REMOTE Routine 02/24/2025 12:55 PM CDT Presence of cardiac pacemaker SSS (sick sinus syndrome) (HCC) from Last 3 Months Results * LEFT HEART CATHETERIZATION WITH CORONARY ANGIOGRAPHY AND WITH AND WITHOUT LEFT VENTRICULOGRAM (04/30/2025 11:51 AM CDT) Anatomical Region Laterality Modality X-Ray Angiograph y Narrative 04/30/2025 12:06 PM CDT CARDIAC CATHETERIZATION REPORT Minnie Serrato ENCOUNTER: [id number] Date of Procedure: 04/30/2025 BIRTHDATE: 1950 ADMISSIONS OFFICER: Aniceto Mojica MD REFERRING PHYSICIAN: Dr. Najera PREPROCEDURE DIAGNOSES: Chest pain Nonsustained ventricular tachycardia PROCEDURES PERFORMED: Moderate sedation that started at 1106 and ended at 1151 using 4mg of Versed and 300mcg of fentanyl. The registered nurse was Kiana Curiel. Selective left and right coronary angiogram. Left heart catheterization with measurement of LVEDP and gradient across the aortic valve. FINDINGS: 1. Left main: The left main coronary artery is angiographically free stenosis. 2. Left anterior descending: The LAD and the diagonal branches are angiographically free of stenosis. 3. Left circumflex: The left circumflex artery is a non-dominant vessel with 10% ostial stenosis. The main marginal branches are angiographically free of stenosis. 4. Right coronary artery: The RCA is a dominant vessel and has mild luminal irregularities without any significant obstructive angiographic disease. 5. Left ventricle: A. End-diastolic pressure 16 mmHg. B. LV gram deferred. C. Pull back gradient of 25mmHg 6. Opening aortic pressure 117/71 and closing aortic pressure 101/52 ACCESS: Right common femoral artery COMPLICATIONS: None ESTIMATED BLOOD LOSS: 5 mL PROCEDURAL DESCRIPTION: Informed consent was obtained from patient. Patient was then brought into the catheterization laboratory technician and was draped and prepped in the usual manner. Moderate sedation was given and the right groin was subcutaneously injected with 1% lidocaine. The right common femoral artery was accessed using a 5Fr sheath via a micropuncture needle and modified Seldinger technique under ultrasound and fluoroscopy guidance. Selective left coronary angiogram was done using a JL4 catheter with the tip of the catheter placed in the left main coronary artery. Selective right coronary angiogram was done using JR4 catheter with the tip of the catheter placed in the right coronary artery. A pigtail catheter was advanced across the aortic valve and due to ventricular ectopy and monitor issues, the pigtail catheter was withdrawn. There was some difficulty readvanced the pigtail catheter into the LV at which time we switched out for AL1 and straight wire which did not cross and we used the JR4 diagnostic catheter with a straight wire which crossed very easily into the left ventricle to obtain measurement of LVEDP and the gradient across aortic valve. Perclose was used for closure. CONCLUSIONS Minimal coronary artery disease Mild aortic stenosis PLAN Continue aggressive risk factor modification and periodic echocardiogram us Aniceto Mojica MD CV CARDIAC CATH PROCEDURES Final Result * (ABNORMAL) eGFR (04/30/2025 10:24 AM CDT) eGFR 48(L) >=60 mL/min/1. 73 m2 Comment: Interpretive Data Reference Interval Normal >/= 90 mL/min/1.73m2 Mildly decreased* 60 - 89 mL/min/1.73m2 Mildly to moderately decreased 45 - 59 mL/min/1.73m2 Moderately to severely decreased 30 - 44 mL/min/1.73m2 Severely decreased 15 - 29 mL/min/1.73m2 Kidney Failure < 15 mL/min/1.73m2 *Relative to young adult level Estimated glomerular filtration rate is determined by the 2020 CKD-EPI equation recommended by the National Kidney Foundation (A Unifying Approach to GFR Estimation: Recommendations of the NKF-ASK Task Force on Reassessing the Inclusion of Race in Diagnosing Kidney Disease, JASN 2020). The CKD-EPI equation should not be used for patients with unstable renal function and has not been validated in children and those over 70. Current interpretive data was last reviewed 2021. Blood 04/30/2025 10:2 4 AM CDT 04/30/2025 10:26 AM CDT us Aniceto Mojica MD LAB BLOOD ORDERABLES Final Resul t [facility] [address] [address] Department [place] [address] * Differential, auto (04/30/2025 10:24 AM CDT) Pathologist [facility] Neutrophil abs 4.51 1.50 - 6.50 K/cumm Imm gran abs 0.01 0.00 - 0.10 K/cumm [facility] Lymphocyte abs 1.24 0.80 - 3.30 K/cumm [facility] Monocyte abs 0.58 0.20 - 0.80 K/cumm [facility] Eosinophil abs 0.33 0.00 - 0.50 K/cumm [facility] Basophil abs 0.03 0.00 - 0.10 K/cumm [facility] Neutrophil pct 67.4 % [facility] Comment: Interpretive Data Percent cell count reference ranges are not reported, since discordance with absolute values may lead to misinterpretation of CBC data. Current Interpretive Data was last revised on 2017. Imm gran pct 0.1 % [facility] Comment: Interpretive Data Percent cell count reference ranges are not reported, since discordance with absolute values may lead to misinterpretation of CBC data. Current Interpretive Data was last revised on 2017. Lymphocyte pct 18.5 % [facility] Comment: Interpretive Data Percent cell count reference ranges are not reported, since discordance with absolute values may lead to misinterpretation of CBC data. Current Interpretive Data was last revised on 2017. Monocyte pct 8.7 % [facility] Comment: Interpretive Data Percent cell count reference ranges are not reported, since discordance with absolute values may lead to misinterpretation of CBC data. Current Interpretive Data was last revised on 2017. Eosinophil pct 4.9 % [facility] Comment: Interpretive Data Percent cell count reference ranges are not reported, since discordance with absolute values may lead to misinterpretation of CBC data. Current Interpretive Data was last revised on 2017. Basophil pct 0.4 % [facility] Comment: Interpretive Data Percent cell count reference ranges are not reported, since discordance with absolute values may lead to misinterpretation of CBC data. Current Interpretive Data was last revised on 2017. Blood 04/30/2025 10:2 4 AM CDT 04/30/2025 10:26 AM CDT us Aniceto Mojica MD LAB BLOOD ORDERABLES Final Resul t [facility] [id number] [address] Department [place] [address] * (ABNORMAL) CBC with auto differential (04/30/2025 10:24 AM CDT) WBC 6.70 3.80 - 9.90 K/cumm Hgb 12.5 11.9 - 15.5 g/dL [facility] Hct 38.3 35.6 - 45.5 % [facility] Plt 346 150 - 400 K/cumm [facility] MPV 9.2 9.1 - 12.3 fL [facility] RBC 3.89(L) 3.90 - 5.20 M/cumm [facility] MCV 98.5(H) 81.3 - 96.4 fL [facility] MCH 32.1 27.1 - 33.3 pg [facility] MCHC 32.6 32.3 - 35.7 g/dL [facility] RDW CV 12.4 11.1 - 14.9 % [facility] CH RDW SD 44.8 35.7 - 48.1 fL [facility] NRBC abs 0.00 0.00 - 0.01 K/cumm [facility] Blood 04/30/2025 10:2 4 AM CDT 04/30/2025 10:26 AM CDT Narrative [facility] - 04/30/2025 10:37 AM CDT If most recent labs were drawn prior to 4 AM, draw only prior to initiating procedure. us Aniceto Mojica MD LAB BLOOD ORDERABLES Final Resul t [facility] [id number] [address] Department [place] [address] * (ABNORMAL) Basic metabolic panel (04/30/2025 10:24 AM CDT) Sodium 139 135 - 145 mmol/L Potassium, pl 4.3 3.3 - 4.9 mmol/L [facility] Chloride 100 97 - 110 mmol/L [facility] CO2 23 22 - 32 mmol/L [facility] Anion gap 16(H) 2 - 15 mmol/L [facility] BUN 19 6 - 25 mg/dL [facility] Creatinine 1.20(H) 0.60 - 1.10 mg/dL [facility] Glucose 112 70 - 199 mg/dL [facility] Comment: Interpretive Data Fasting glucose >/= 126 mg/dl is diagnostic for diabetes. Fasting is defined as no caloric intake for at least 8 hours. Fasting glucose between 100 mg/dl to 125 mg/dl is diagnostic of prediabetes. In a patient with classic symptoms of hyperglycemia or hyperglycemic crisis, a random glucose >/= 200 mg/dl is diagnostic for diabetes. In the absence of unequivocal hyperglycemia, results should be confirmed by repeat testing. The classification and Diagnosis of Diabetes Diabetes Care 2021; 46: S19-S40. Current interpretive data was last revised 2022. Calcium 9.9 8.5 - 10.3 mg/dL [facility] Blood 04/30/2025 10:2 4 AM CDT 04/30/2025 10:26 AM CDT Aniceto Mojica MD LAB BLOOD ORDERABLES Final Resul t [facility] [id number] [address] Department [place] [address] * POCT lipid panel (04/06/2025 1:00 PM CDT) Cholesterol, POC 166 <200 MG/DL HDL, POC 87 >=40 mg/dL Triglycerides, POC 80 <=149 mg/dL LDL Cholesterol POC 63 <=129 mg/dL Chol/HDL Ratio, POC 0.7 NONE Non-HDL Cholesterol, POC 79 NONE mg/dL Cholesterol Total, POC 166 30 - 199 mg/dL Capillary blood 04/06/2025 1 :00 PM CDT Jonathon Najera MD POINT OF CARE TEST ORDERA BLES Final Result * DEVICE CHECK - REMOTE (02/24/2025 12:55 PM CDT) Anatomical Region Laterality Modality Other Narrative 04/01/2025 3:31 PM CDT Medtronic Dual Pacemaker. Dx; SSS, Afib. DOI 06/22/2016 + RV lead. Chronic atrial lead 04/23/1996. Carelink remote monitoring. Office pacer checks Q1 yr. Routine AAIR and <> DDDR Pacemaker Remote. Transmission attached. Battery status: 2.73 V , 22 months remaining battery life to MCKENZIE. Stable lead impedances, pacing and sensing thresholds. 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 AF [place] < 0.1%. 2 Ventricular high rate episodes detected, IEGM demonstrates ond NSVT with the longest episode lasting 6 seconds. Medications: ASA 325 mg, diltiazem 240 mg, lisinopril 20 mg See scanned report. Office pacemaker follow up: 06/16/25 CareLink remote f/u 6 months. Roman Kidd, YAMILEX us Jonathon Najera MD CV CARDIAC SERVICES PROCE EMELINA Final Result from Last 3 Months Insurance MEDIC[place] [address] [place] [address] Advance Directives For more information, please contact: [phone] Documents on File Type Date Recorded Patient Commercial Stripper Expl anation ADVANCE DIRECTIVE 04/30/2025 10:19 AM Eugene carlson of [employer] * Full Code (Latest Code Status on File) Date Activated Date Inactivated Comments 04/30/2025 12:40 PM 04/30/2025 6:59 PM Care Teams Cooling System Operator Relationship Specialty Start Date End Date John Tavares MD PCP - General 11/09/16 Jonathon Najera MD [address] [id number] Global Sales Executive Cardiology 05/30/17
--- OUTSIDE RECORDS SUMMARY | 2025-05-14 12:33 | XMS_ITS | Encounter Summary ---
Author Organization [facility] Address [address] [facility] [address] [place] [id number] Care Team Providers Care Senior Management Consultant Name Role Phone John Tavares MD Primary Care Provider [phone] Jonathon Najera MD Unavailable [phone] Encounter Details Date Type Department Care Team (Late st Contact Info) Description 11/22/2016 Orders Only [facility] Provider, MD [address]ih[address] [phone] Social History Tobacco Use Types Packs/Day Years Used Date Smoking Tobacco: Former Cigarettes Q uit: 08/12/1997 Alcohol Use Standard Drinks/Week Comments Yes 0 (1 standard drink = 0.6 oz pur e alcohol) Comments Unknown Sex and Gender Information Value Date Recorded Sex Assigned at Not on file 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 us Historical Provider CV CARDIAC SERVICES PROCE DURES Final Result * CARDIOLOGY REPORT (11/22/2016) Anatomical Region Laterality Modality Other Narrative 11/22/2016 Ordered by an unspecified provider. Historical Provider MD CV CARDIAC SERVICES PROCE DURES Final Result [...] on filedocumented in this encounter Care Teams Senior Management Consultant Relationship Specialty Start Date End Date John Tavares MD PCP - General 11/09/16 Jonathon Najera MD [address] [id number] Checkout Supervisor Cardiology 05/30/17 documented as of this encounter
== END 2025-05-14 12:14 | disposition home or self-care (01) ==
LOC: ANHFOHIMG 12:30
PROVIDERS: PCP Family Medicine; Visit Provider Family Medicine
DX: Z12.31 Encounter for screening mammogram for malignant neoplasm of breast (principal)
CPT/HCPCS: 77063; 77067

== ENCOUNTER 2025-06-10 15:54 | Emergency (ER) | payer MEDICARE, OTHER, SELFPAY ==
--- OUTSIDE RECORDS SUMMARY | 2022-03-02 05:00 | XMS_ITS | Continuity of Care Document ---
Author Organization [facility] Address [address] [place] [address] Phone Care Team Providers Care Recycling Program Manager Name Role Phone Joce Quintana MD Unavailable Unavailable Allergies, Adverse Reactions, Alerts Substance Reaction Status Criticality No Known Allergies Active No Inform ation No Known Allergies Active No Inform ation PROCHLORPERAZINE MALEATE Active No Information PROCHLORPERAZINE EDISYLATE Active N o Information prochlorperazine Active No Informat ion Medications Medication Instructions Dosage Effective Dates (start - stop) Status Comments tramadol 50 mg tablet TAKE 1 TABLET BY MOUTH EVERY 6 HOURS NEEDED FOR PAIN - Active diltiazem ER 240 mg capsule,24 hr,extended release take 1 capsule by oral route every day 240 MG - Active spironolactone 25 mg tablet take 1 tablet by oral route every day 25 MG - Active lisinopril 20 mg tablet take 1 tablet by oral route every day 20 MG - Active aspirin 325 mg tablet take 1 by Oral route every day 1 - Active albuterol sulfate HFA 90 mcg/actuation aerosol inhaler inhale 2 puff by inhalation route every 4 - 6 hours as needed - Active Lexapro 10 mg tablet take 1 tablet by oral route every day 10 MG - Active rosuvastatin 10 mg tablet take 1 tablet by oral route every day 10 MG - Active SYMBICORT (unknown strength) inhale 2 puff by inhalation route 2 times every day in the morning and evening Not Available - Active multivitamin tablet take 1 tablet by oral route every day with food 1 tablet - Active Fish Oil 360 mg-1,200 mg capsule,delayed release - Active Flonase Allergy Relief 50 mcg/actuation nasal spray,suspension spray 1 - 2 spray by intranasal route every day in each nostril as needed 50-100 MCG - Active Procedures Procedure Date Office/Outpatient Visit, Est X-ray Exam of Elbow Min 3V Office/Outpatient Visit, New X-ray Exam of Elbow Min 3V X-ray Exam of Wrist Min 3V Advance Directives Directive Yes / No Effective Date File Name No Information Encounters Encounter Description Practice Location Reason(s) For Visit Diagnoses Date Provider Providers Copied on Encounter Office/Outpat ient Visit, Est [facility] , [address], [place], [place], [facility], tel:[phone] [address] [place] [address] No Information 2 Lilian Hobson. [address], [place], [id number], . tel:[phone] Referring Provider: Joce Quintana MD P, [address] [place], [address] . tel:[phone] Office/Outpat ient Visit, New [facility] , [address], [place], [place], [facility], tel:[phone] [place] [address] No Information 2 Lilian Hobson. [address], [place], [id number], . tel:[phone] Referring Provider: [facility], [address], [place], [address]. tel:[phone] [facility] , [address], [facility], tel:[phone] [place] [address] No Information 2 Grant Duke. [address], [place], [id number], . tel:[phone] Family History Family Member Type Diagnosis Age At Onset Problem Family history of anxiety Problem Family history of diabetes m ellitus Problem Family history of congenital heart disease Payers Payer name Insurance type Covered alliance party ID Authorhevera lakshmi(s) Medicare MB [id number] [facility] [id number] Social History Type Description Quantity Date Captured Comments Alcohol Use Details Unknown Caffeine Use Details Unknown Tobacco Use Status No Information Smoking Status No Information Sex Female Vital Signs Date / Time: Height Weight BMI Pulse Rate Blood Pressure Temperature Respiratory Rate Body Surface Area Head Circumference Head Circ. Percentile Wt./Stephen. Percentile BMI percentile Pulse Ox Inhaled Ox 10:11 AM 66.00 in 108.862 kg (240.00 lbs) 38.7 4 kg/m eter (2) Chief Complaint And Reason For Visit No Information Reason For Referral Reason For Referral No Information History Of Present Illness Encounter Date Complaint History Of Prese nt Illness No Information Functional Status Date Functional Assessmen t No Information Instructions Date Instruction Additional Infor mation No Information Assessments Type Assessment Date assessment Nondisplaced fractur e of neck of left radius, subsequent encounter for closed fracture with routine healing Patient Care Teams Name Effective Dates (start - stop) Status Members No Information
--- NOTE | ~2025-06-10 | XR_ITS ---
Clinical history:Fall. EXAM:X-ray knee right 3 views TECHNIQUE:3 images of the right knee were obtained. Comparisons:None available FINDINGS: Right knee arthroplasty without radiographic evidence for loosening of the hardware. Bones are osteopenic. No fracture. No dislocation. Soft tissue swelling about the right knee. Moderate-sized suprapatellar effusion. IMPRESSION: 1. Right knee arthroplasty without radiographic evidence for loosening of the hardware. 2. No fracture identified. If symptoms persist or worsen, consider a short-term follow-up study or additional imaging for further assessment. Reviewed, dictated and finalized at location Q. IMPRESSION: 1. Right knee arthroplasty without radiographic evidence for loosening of the h ardware. 2. No fracture identified. If symptoms persist or worsen, consider a short-term follow-up study or additio nal imaging for further assessment.
--- OUTSIDE RECORDS SUMMARY | 2025-06-10 11:45 | XMS_ITS | Encounter Summary ---
Author Organization [facility] Healthcare Address [address] [place] [address] Care Team Providers Care Book Jacket Cover Machine Operator Name Role Phone John Tavares MD Primary Care Provider [phone] Jonathon Najera MD Unavailable [phone] Reason for Referral * MRI/CAT/PET Scan (Routine) - Authorized Specialty Diagnoses / Procedures Referred By Contac t Referred To Contact Diagnoses Recurrent chest pain Procedures CTA Chest W Contrast Jonathon Najera MD [address] [facility] [address] Phone: tel: fax: External Order Referral ID Status Reason Start Date Expiration Date V isits Requested Visits Authorized [id number] Authorized 06/10/2025 07/10/2026 1 1 Reason for Visit * Reason Comments Aortic Stenosis SVT Chest Pain 2 mo cardiac cath f/ u Encounter Details Date Type Department Care Team (Late st Contact Info) Description 06/10/2025 11:45 AM CDT Office Visit [facility] Cardiology [address] [place] [address] Jonathon Najera MD [address] [facility] [address] Essential hypertension (Primary Dx); Nonrheumatic aortic valve stenosis; Nonrheumatic mitral valve regurgitation; Presence of cardiac pacemaker; Recurrent chest pain Social History Tobacco Use Types Packs/Day Years Used Date Smoking Tobacco: Former Cigarettes 0.2 5 0 03/25/2009 - 09/19/2013 Smokeless Tobacco: Never Alcohol Use Standard Drinks/Week Comments Yes 4 [...] on file Legal Sex Female 7:21 PM BELLPERSON Gender Identity Female 03/25/2021 11:48 AM CDT Sexual Orientation Not on file documented as of this encounter Last Filed Vital Signs Vital Sign Reading Time Taken Comments Blood Pressure 128/60 06/10/2025 11:46 AM CDT Pulse 85 06/10/2025 11:46 AM CDT Temperature - - Respiratory Rate - - Oxygen Saturation 97% 06/10/2025 11:46 AM CDT Inhaled Oxygen Concentration - - Weight 103.9 kg (229 lb) 06/10/2025 11:46 AM CDT Height 167.6 cm (5' 6) 06/10/2025 11:46 AM CDT Body Mass Index 36.96 06/10/2025 11:46 AM CDT documented in this encounter Progress Notes * Jonathon Najera MD - 06/10/2025 11:45 AM CDT Patient ID: Minnie Serrato 1950 Chief Complaint: History of pacemaker Minnie Serrato is a 74 y.o. female who is an established patient of Dr. Najera who is here today after a year's absence in the office. 66-year-old female who has an extensive cardiac history. She has a history of atrial fibrillation and underwent a Maze procedure in 1994 and this was complicated by pericardial effusion and subsequent pericardial window. She had ablations prior to that Maze procedure.. She a pacemaker implanted in 1995. She had further ablations in 2007 in 2008 and a cardioversion in 2007. She had been on amiodarone as well is tikosyn but is currently off all antiarrhythmics. She established care with me back in May 2013. Echocardiogram was performed which was essentially unremarkable. She has been set up in the pacemaker clinic and is being followed routinely. She did undergo a generator change as well as an RV lead placement by Dr. Coffey last fall. 12/27/2016 Follow-up: Since last visit she has had some worsening palpitations. She started atorvastatin and a few days later she started to have some worsening palpitations and skipped heartbeats. Her symptoms became quite severe. She saw our nurse practitioner and her diltiazem was increased. She had nothing that would sustain indefinitely however she describes them as being skipped beats that would occur very frequently. She did undergo stress testing which did not reveal any ischemia. Deviceinterrogation an EKG does show PACs and PVCs. She denies any chest pain, syncope, presyncope, paroxysmal nocturnal dyspnea, orthopnea, edema. Her palpitations have gradually been improving but she did have 1 day and which they were bad but she still has daily palpitations. In the past she has been on amiodarone and Tikosyn. She has also undergone Maze procedures and pacemaker implantation in 1995. 01/21/2017 OV w/ X RAY SERVICE ENGINEER for 1-year follow up: Over the past year the patient states she has been dealing with her 's cancer recurrence. Apparently his cancer is due to an exposure during his tourof duty in [place]. The past year has been very stressful for both of them, as his health problems have exacerbated his PTSD. The patient has started taking Lexapro and this has helped somewhat. She r eports 3 episodes of a very brief crushing chest pain, which lasted 10-15 seconds, accompanied by nausea and clamminess, last episode occurred 2 months ago. She wonders if these could have been panicattacks. One of the episodes occurred after she and her had a big argument. She went off atorvastatin last year after she had increased palpitations when starting the medication. She never started any other statins. She states that she and her have been trying to follow a heart healthy diet in recent months but she is frustrated that she is not losing any weight. Her diltiazem dose was increased to 300 mg daily last year, but when this prescription ran out she went back to diltiazem 240 mg which she had on hand, and states that her palpitations seem to remain controlled just as well. Follow-up note 03/28/2018: She returns today feeling very well for the most part. She did have 3 episodes of chest pain as detailed above but she is none since. She does have occasional palpitations but she is under a great deal of stress as of late also for the above reasons as described. No syncope or presyncope. No paroxysmal nocturnal dyspnea orthopnea. No exertional chest pain. No unusual edema. Follow-up note 09/19/2018: She does think that her shortness of breath is a bit worse. She does have some the asthma like symptoms at times which does improve with inhalers. She also has other episodes of some shortness of breath which she does not necessarily think may be related to her asthma. Regardless she has no chest pain, syncope, presyncope,,orthopnea, edema or palpitations. Paroxysmal nocturnal dyspnea has been complaint of a couple times but nothing sustained Follow-up note 09/29/2019: She returns today feeling much better. She denies any chest pain, SOB, syncope, presyncope, paroxysmal nocturnal dyspnea, orthopnea, edema or palpitations Follow-up note 04/12/2022 She does have some lower extremity swelling which is worsened if she stands. This is not new or different than usual. Otherwise no chest pain, shortness breath, syncope, presyncope, paroxysmal nocturnal dyspnea, orthopnea, palpitations Follow-up note 03/22/2023: She is here today for her annual visit. Her aortic stenosis is moderate by recent echo but certainly not severe at this point. She is scheduled for right total knee replacement in a couple of weeks. She can perform greater than 4 Mets without any heart failure or anginal symptoms. She denies any chest pain, shortness breath, syncope, presyncope, paroxysmal nocturnal dyspnea orthopnea, edema palpitations Follow-up note 04/03/2024: She denies any chest pain, shortness breath, syncope, presyncope, paroxysmal nocturnal dyspnea, orthopnea, edema or palpitations. Follow-up note 04/06/2025: She is having chest pain for the past 6-8 months. It is becoming more frequent. It occurs 2-4 times monthly. It will last for 2-4 minutes at a time in she describes as a crushing pain radiates into her back. It also radiates to her left side of her jaw. It is associated with shortness breath. It does not occur with exertion however. It spontaneously resolves. She deniesany syncope, presyncope, paroxysmal nocturnal dyspnea, orthopnea, edema palpitations. Follow-up note 06/10/2025: She continues to have chest pain despite a negative coronary angiogram. She has minimal plaquing. Most recent chest pain lasted about 5 minutes. She is under emotional stress. Family history of aneurysms. No shortness breath, syncope, presyncope, paroxysmal nocturnal dyspnea, orthopnea, edema palpitations Records that I personally reviewed on the day of this visit include: (the interpretation is outlined in the chief complaint above) 12/27/[address] Najera, today's point of care lipid panel. I have also reviewed: allergies, current medications, past family history, past medical history, past social history, past surgical history and problem list Review of Systems Constitutional: Negative for diaphoresis, fever, malaise/fatigue, weight gain and weight loss. HENT: Negative for hearing loss. Eyes: Negative for visual disturbance. Cardiovascular: Positive for leg swelling. Negative for chest pain, claudication, dyspnea on exertion, orthopnea, palpitations, paroxysmal nocturnal dyspnea and syncope. Respiratory: Negative for cough, hemoptysis, shortness of breath, snoring and wheezing. Endocrine: Negative for polydipsia. Hematologic/Lymphatic: Does not bruise/bleed easily. Skin: Negative for poor wound healing and rash. No easy bruising. No bleeding problems. Musculoskeletal: Negative for joint pain and myalgias. Gastrointestinal: Negative for heartburn, nausea and vomiting. No reflux Genitourinary: Negative for hematuria. Neurological: Negative for dizziness, headaches and light-headedness. Psychiatric/Behavioral: Negative for depression. The patient is not nervous/anxious. Vital Signs: BP 128/60 (BP Location: Right arm, Patient Position: Sitting) Pulse 85 Ht 167.6 cm (5' 6) Wt103.9 kg (229 lb) SpO2 97% BMI 36.96 kg/m?? Physical Exam Vitals reviewed. Constitutional: General: She is not in acute distress. Appearance: She is well-developed. HENT: Head: Normocephalic and atraumatic. Nose: Nose normal. Eyes: General: No scleral icterus. Conjunctiva/sclera: Conjunctivae normal. Pupils: Pupils are equal, round, and reactive to light. Neck: Vascular: No JVD. Trachea: No tracheal deviation. Cardiovascular: Rate and Rhythm: Normal rate and regular rhythm. Heart sounds: Normal heart sounds. No murmur heard. Pulmonary: Effort: Pulmonary effort is normal. No respiratory distress. Breath sounds: Normal breath sounds. Abdominal: General: Bowel sounds are normal. Palpations: Abdomen is soft. Tenderness: There is no abdominal tenderness. Musculoskeletal: General: Normal range of motion. Cervical back: Normal range of motion. Skin: General: Skin is warm and dry. Neurological: Mental Status: She is alert and oriented to person, place, and time. Psychiatric: Mood and Affect: Mood normal. Allergies Allergen Reactions Beta-Blockers (Beta-Adrenergic Blocking Agts) Other (See comments) and Nausea & Vomiting Exacerbate asthma. Compazine [Prochlorperazine] Rash Atorvastatin Other (See comments) IRREGULAR HEAR RATE Current Outpatient Medications: albuterol HFA (PROAIR HFA) 90 mcg/actuation inhaler, inhale 2 puff by inhalation route every 4 - 6 hours as needed, Disp: 0 Inhaler, Rfl: 0 aspirin 325 mg tablet, take 1 tablet by oral route every day, Disp: 0, Rfl: 0 diltiazem (TIAZAC) 240 mg 24 hr capsule, take 1 capsule by oral route every day, Disp: 30, Rfl: 3 escitalopram (LEXAPRO) 10 mg tablet, Take 2 tablets (20 mg total) by mouth daily, Disp: , Rfl: 0 fluticasone (FLONASE) 50 mcg/actuation nasal spray, inhale 2 spray by Intranasal route every day ineach nostril, Disp: 0 spray, Rfl: 0 qavuwtvyclo-dlysgvlhn-fqa C-Mn (GLUCOSAMINE CHONDROITIN MAXSTR) 500-400 mg capsule, take 1 by Oral route every day, Disp: 0, Rfl: 0 hydrOXYzine (ATARAX) 25 mg tablet, Take 1 tablet (25 mg total) by mouth 2 (two) times a day as needed, Disp: , Rfl: lisinopril (PRINIVIL,ZESTRIL) 20 mg tablet, Take 1 tablet (20 mg total) by mouth daily., Disp: 90 tablet, Rfl: 3 multivitamin tablet tablet, take 1 tablet by oral route every day with food, Disp: 0, Rfl: 0 omega-3 fatty acids-fish oil 340-1,000 mg capsule, take 1 by oral route every day, Disp: 0, Rfl: 0 rosuvastatin (CRESTOR) 10 mg tablet, Take 1 tablet (10 mg total) by mouth daily., Disp: 90 tablet, Rfl: 3 spironolactone (ALDACTONE) 25 mg tablet, take 1 tablet by oral route every day, Disp: 0, Rfl: 0 SYMBICORT 80-4.5 mcg/actuation inhaler, Inhale 2 puffs 2 (two) times a day, Disp: , Rfl: 0 traMADol (ULTRAM) 50 mg tablet, take 1 tablet by oral route every 6 hours as needed, Disp: 0, Rfl: 0 EKG shows associated junctional of with the right bundle-branch block. Left anterior fascicular block. Abnormal EKG 2D echocardiogram Doppler 04/02/2018: EF 60-65% with mild LVH. Diastolic dysfunction is present. [id number] left atrial enlargement, mild mitral regurgitation, mild aortic stenosis with aortic valve area 1.7 centimeters squared. Mild tricuspid regurgitation. 2D ECHO 09/15/2019 Normal left ventricular systolic function. No focal wall motion abnormalities. Normal left ventricular size. Mild concentric left ventricular hypertrophy. Paradoxical septal motion consistent with RV pacemaker. Ejection fraction is measured at 66 %. Normal right ventricular size. Normal right ventricular systolic function. Linear artifact in right ventricle suggestive of catheter(s), pacemaker lead(s), or ICD lead(s). Mitral valve leaflets appear mildly thickened. Moderate mitral annular calcification. Mild mitral valve regurgitation. Mild mitral stenosis. Mean gradient of 3.00 mmHg. Valve area of 2.04 cm2. Mild aortic stenosis. Peak gradient of 22.0 mmHg. Mean gradient of 11.0 mmHg. Valve area of 1.65 cm2. Aortic cusps appear mildly calcified. Aortic cusps appear mildly restricted. Trileaflet aortic valve. No aortic regurgitation. Sinus rhythm atrial tracking ventricular paced rhythm. ECHO 10/2020 Normal left ventricular systolic function. No focal wall motion abnormalities. Normal left ventricular size. Mild concentric left ventricular hypertrophy. Paradoxical septal motion consistent with RV pacemaker. There is pseudonormal diastolic dysfunction Grade II. Ejection fraction is measured at 65 %. Mitral valve leaflets appear mildly thickened. Moderate mitral annular calcification. Moderate mitral valve regurgitation. Aortic valve not well visualized. Mild aortic stenosis. Peak gradient of 25.0 mmHg. Mean gradient of 14.0 mmHg. Valve area of 1.56 cm2. Aortic cusps appear moderately calcified. No aortic regurgitation. Normal appearance of the tricuspid valve. Normal right ventricular systolic pressure. Estimated peak RVSP is 33 mmHg. Trivial regurgitation in the tricuspid valve. Ventricular paced rhythm. Echo 03/27/2022 Normal left ventricular systolic function. No focal wall motion abnormalities. Mild concentric left ventricular hypertrophy. Mild enlargement of left ventricle cavity. There is pseudonormal diastolic dysfunction Grade II. Ejection fraction is measured at 71 %. There is mild enlargement of left atrium. Mitral valve leaflets appear mildly thickened. Mild mitral annular calcification. Mild mitral valve regurgitation. Mild aortic stenosis. Peak gradient of 23.0 mmHg. Mean gradient of 11.0 mmHg. Valve area of 1.51 cm2. Aortic cusps appear mildly calcified. Trileaflet aortic valve. No aortic regurgitation. Normal appearance of the tricuspid valve. Mild pulmonary hypertension based on right ventricular systolic pressure. Estimated peak RVSP is 35 mmHg. Mild tricuspid regurgitation. Sinus rhythm atrial tracking ventricular paced rhythm. Echocardiogram 02/1924 Normal left ventricular size. Mild concentric left ventricular hypertrophy. Normal global left ventricular systolic function. Impaired diastolic relaxation Grade I. Ejection fraction is measured at 60 %. Global Longitudinal Strain is -18 %. Normal right ventricular size. Normal right ventricular systolic function. There is mild enlargement of left atrium. Moderate mitral annular calcification. Mild mitral valve regurgitation. Mild aortic stenosis. Peak Velocity of 2.58 m/s. Mean gradient of 16.0 mmHg. Valve area of 1.81 cm2. Aortic cusps appear moderately sclerotic. Probable trileaflet aortic valve, although not all leaflets are visualized. Mild tricuspid regurgitation. CATH 04/30/25 1. Left main: The left main coronary [...] deferred. C. Pull back gradient of 25mmHg Assessment: Diagnoses and all orders for this visit: Essential hypertension (Primary) At goal Premature atrial contraction Presence of cardiac pacemaker PPM in place and functioning normally PVC (premature ventricular contraction) Asymptomatic Nonrheumatic aortic valve stenosis Mild NSVT (nonsustained ventricular tachycardia) (CMS/HCC) Noted on device interrogation . Brief and rare episodes noted Non-rheumatic mitral regurgitation Mild Chest pain Recurrent and ongoing intermittent Plan/Recommendations: Because of her family history of aneurysms, I think it is reasonable to perform a CTA chest to evaluate her thoracic aorta. This is because of her recurrent and ongoing chest pain Continue diltiazem for hypertension and PVCs and SVT Continue spironolactone, lisinopril also for hypertension Discussed Wegovy or Zepbound as good options for weight loss Follow-up in 6 months or sooner as clinically indicated Jonathon Najera MD [facility] documented in this encounter Plan of Treatment Scheduled Orders Name Type Priority Associated Diagnoses Orde r Schedule CTA Chest W Contrast Imaging Schedule Routine, Read Routine (OP Routine) Recurrent chest pain Expected: 06/10/2025, Expires: 06/10/2026 documented as of this encounter Visit Diagnoses Diagnosis Essential hypertension- Primary Unspecified essential hypertension Nonrheumatic aortic valve stenosis Nonrheumatic mitral valve regurgitation Presence of cardiac pacemaker Cardiac pacemaker in situ Recurrent chest pain Unspecified chest pain documented in this encounter Care Teams Book Jacket Cover Machine Operator Relationship Specialty Start Date End Date John Tavares MD PCP - General 11/09/16 Jonathon Najera MD [address] [place] [address] Promotion Specialist Cardiology 05/30/17 documented as of this encounter
[2025-06-10 15:54] VITALS: BP 140/70; PULSE 84; RESP 16; TEMP 36.5; O2SAT 98
--- OUTSIDE RECORDS SUMMARY | 2025-06-10 17:14 | XMS_ITS | Encounter Summary ---
Author Organization [facility] Address [address] [facility] [address] [place] [address] Care Team Providers Care Systems Protection Technician Name Role Phone John Tavares MD Primary Care Provider [phone] Jonathon Najera MD Unavailable [phone] Encounter Details Date Type Department Care Team (Late st Contact Info) Description 12/10/2016 Orders Only [facility] ProviderNiharika MD [address] [place] [address] Social History Tobacco Use Types Packs/Day Years Used Date Smoking Tobacco: Former Cigarettes Q uit: 08/12/1997 Alcohol Use Standard Drinks/Week Comments Yes 0 (1 standard drink = 0.6 oz pur e alcohol) Comments Unknown Sex and Gender Information Value Date Recorded Sex Assigned at Not on file Legal Sex Female 7:21 PM RN SPINE Gender Identity Female 03/25/2021 11:48 AM CDT [...] on filedocumented in this encounter Care Teams Systems Protection Technician Relationship Specialty Start Date End Date John Tavares MD PCP - General 11/09/16 Jonathon Najera MD [address] [facility] [place] [address] Scaffold Erector Cardiology 05/30/17 documented as of this encounter
--- OUTSIDE RECORDS SUMMARY | 2025-06-10 17:14 | XMS_ITS | Encounter Summary ---
Author Organization [facility] Address [address] [facility] [address] [place] [address] Care Team Providers Care Bee Farmer Name Role Phone John Tavares MD Primary Care Provider [phone] John Tavares MD Primary Care Provider [phone] Jonathon Najera MD Unavailable [phone] Encounter Details Date Type Department Care Team (Late st Contact Info) Description 08/15/2016 Orders Only [facility] Provider, MD Niharika [address] [place] [id number] Social History Tobacco Use Types Packs/Day Years Used Date Smoking Tobacco: Former Cigarettes Q uit: 08/12/1997 Alcohol Use Standard Drinks/Week Comments Yes 0 (1 standard drink = 0.6 oz pur e alcohol) Comments Unknown Sex and Gender Information Value Date Recorded Sex Assigned at Not on file Legal Sex Female 7:21 PM BOOKING PRIZER Gender Identity Female 03/25/2021 11:48 AM CDT [...] on filedocumented in this encounter Care Teams Bee Farmer Relationship Specialty Start Date End Date John Tavares MD PCP - General 11/09/16 John Tavares MD PCP - General 05/27/13 11/08/16 Jonathon Najera MD [address] [place] [address] Timing Machine Operator Cardiology 05/30/17 documented as of this encounter
--- OUTSIDE RECORDS SUMMARY | 2025-06-10 17:14 | XMS_ITS | Clinical Summary ---
Author Organization [facility] Address [address] [place] [address] Phone Care Team Providers Care Music Critic Name Role Phone John Tavares MD Primary Care Provider [phone] Allergies Active Allergy Reactions Criticality Noted Date Comments Beta Adrenergic Blockers Other (see comments) Medium 09/27/2021 Exacerbate asthma. Prochlorperazine Rash Medium 09/27/2021 Medications albuterol HFA (ProAir HFA) 108 (90 Base) MCG/ACT inhaler 90 mcg 3 Active aspirin 325 MG tablet 325 mg 6 Active budesonide-form oterol (Symbicort) 80-4.5 MCG/ACT inhaler 9 Active dilTIAZem (TIAZAC) 240 MG 24 hr capsule 240 mg 5 Active escitalopram (LEXAPRO) 10 MG tablet TK 1 T PO QD 8 Active fluticasone (FLONASE) 50 MCG/ACT nasal spray inhale 2 spray by Intranasal route every day in each nostril 4 Active lisinopril (PRINIVIL) 20 MG tablet Take 20 mg by mouth daily 8 Active rosuvastatin (CRESTOR) 10 MG tablet Take 10 mg by mouth daily 8 Active spironolactone (ALDACTONE) 25 MG tablet 25 mg 5 Active traMADol (ULTRAM) 50 MG tablet 50 mg 5 Active GLUCOSAMINE-CHO CSRTWY-CPDUE-RI PO take 1 by Oral route every day 3 Active multivitamin with minerals (CENTRUM/CERTAV IT) 9-200 mg-mcg tablet (HALF TABLET) take 1 tablet by oral route every day with food 3 Active fish oil-omega-3 fatty acids 1000 MG capsule take 1 by oral route every day 3 Active Cholecalciferol (Vitamin D3) 50 MCG (2000 UT) chewable tablet Chew Acti ve Active Problems Problem Noted Date Diagnosed Date [...] hypertension 07/15/2014 Overview (09/27/2021): Essential hypertension Immunizations Immunization Administration Dates Next Due Influenza TIV (IM) [...] at Not on file Legal Sex Female 9:36 AM MST Gender Identity Not on file Sexual Orientation [...] 11:20 AM CDT Height 167.6 cm (5' 6) 12/28/2021 11:20 AM CDT Body Mass Index 39.22 12/28/2021 11:20 AM CDT Plan of Treatment Health Maintenance Due Date Last Done Comments Pneumococcal PPSV23/PCV13 65 + Years / Low and Medium Risk (2 of 3 - PCV20 or PCV21) 04/12/2020 04/12/2019 Influenza Vaccine (#1) 2025 06/12/2021, 2016 Insurance MEDICARE [facility] Care Teams Music Critic Relationship Specialty Start Date End Date John Tavares MD [address] [place] [address] PCP - General Family Medicine 09/20/21
--- OUTSIDE RECORDS SUMMARY | 2025-06-10 17:14 | XMS_ITS | Clinical Summary ---
Author Organization [facility] Address [address] [facility] [place] [address] Care Team Providers Care Court Bailiff Or Sheriff Name Role Phone John Tavares MD Primary Care Provider [phone] Source Comments [facility],non-owned Affiliates and Associated Physician Practices is amultiple site organization consisting of ambulatory clinics and hospital sitesin [place], [place], [place] and [place]. This disclosure is being madepursuant to the Care Everywhere program and may not contain all information available regarding this patient. Last updated 18.[facility] Allergies No known active allergies Immunizations Immunization Administration Dates Next Due INFLUENZA VACCINE, QUADR. (F LUZONE; FLULAVAL; FLUARIX; AFLURIA QUADRIVALENT; 6MO+), 0.5 ML (IIV4) 06/18/2017 Social History Tobacco Use Types Packs/Day Years Used Date Smoking Tobacco: Never Assessed Comments Unknown Sex and Gender Information Value Date Recorded Sex Assigned at Not on file Legal Sex Female 12:54 PM STUDENT RECORDS COORDINATOR Gender Identity Not on file Sexual Orientation [...] age to complete this topic Insurance MEDICARE [facility] Care Teams Court Bailiff Or Sheriff Relationship Specialty Start Date End Date John Tavares MD [address] [place] [address] PCP - General Family Medicine 06/18/17
--- OUTSIDE RECORDS SUMMARY | 2025-06-10 17:14 | XMS_ITS | Encounter Summary ---
Author Organization [facility] Address [address] [place] [address] Care Team Providers Care Railroad Conductor Name Role Phone John Tavares MD Primary Care Provider [phone] Encounter Details Date Type Department Care Team (Late st Contact Info) Description 11/06/2023 Lab Requisition [facility] - DermPath Lab [address] [place] [address] John Tavares MD [address] [place] [address] Social History Tobacco Use Types Packs/Day Years Used Date Smoking Tobacco: Never Assessed Comments Unknown Sex and Gender Information Value Date Recorded Sex Assigned at Not on file Legal Sex Female 12:54 PM 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 Gender Identity Not on file Sexual Orientation Not on file documented as of this encounter Plan of Treatment Not on file documented as of this encounter Procedures Procedure Name Priority Date/Time Associated Diagnosis Comments DERMATOPATHOLOGY Routine 11/06/2023 3:33 AM CDT documented in this encounter Results * DERMATOPATHOLOGY (11/06/2023 3:33 AM CDT) Case Report Dermatopathology Report Case: [id number] Authorizing Provider: John Tavares MD Collected: 11/06/2023 03:33 AM Ordering Location: [facility] - Received: 11/07/2023 07:12 AM [...] determined by the Dermatopathology Laboratory at [facility], directed by Dr. India Trujillo. These tests need not be, and therefore are not, approved by the [place] Food and Drug Administration. The tests are used for clinical purposes. Billing Codes Specimen Charges Stain Charges 25084 1 1:35 PM CDT DERMATOPATHOLOGY LABORATORY Embedded Images 1:35 PM CDT DERMATOPATHOLOGY LABORATORY Pathology/Cytolo gy TISSUE SPECIMEN FROM SKIN / Unknown 11/06/2023 3:33 AM CDT 11/07/2023 7:12 AM CDT us John Tavares MD LAB - PATHOLOGY/CYTOLOGY ORDE JC Final Result DERMATOPATHOLOGY LABORATORY [facility] - Department of Dermatology [facility] Medicine [address] [place] [address], [address] [phone] documented in this encounter Visit Diagnoses Not on filedocumented in this encounter Care Teams Railroad Conductor Relationship Specialty Start Date End Date John Tavares MD [address] [place] [address] PCP - General Family Medicine 06/18/17 documented as of this encounter
--- OUTSIDE RECORDS SUMMARY | 2025-06-10 17:14 | XMS_ITS | Encounter Summary ---
Author Organization [facility] Address [address] [facility] [address] [place] [address] Care Team Providers Care Engine Tester Name Role Phone John Tavares MD Primary Care Provider + [phone] Jonathon Najera MD Unavailable [phone] Encounter Details Date Type Department Care Team (Late st Contact Info) Description 12/31/2016 Orders Only [facility] ProviderNiharika MD [address] [place] [address] Social History Tobacco Use Types Packs/Day Years Used Date Smoking Tobacco: Former Cigarettes Q uit: 08/12/1997 Alcohol Use Standard Drinks/Week Comments Yes 0 (1 standard drink = 0.6 oz pur e alcohol) Comments Unknown Sex and Gender Information Value Date Recorded Sex Assigned at Not on file 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
--- OUTSIDE RECORDS SUMMARY | 2025-06-10 17:14 | XMS_ITS | Encounter Summary ---
Author Organization [facility] Address [address] [facility] [address] [place] [address] Care Team Providers Care Weekend Caregiver Name Role Phone John Tavares MD Primary Care Provider + [phone] John Tavares MD Primary Care Provider + [phone] Jonathon Najera MD Unavailable [phone] Encounter Details Date Type Department Care Team (Late st Contact Info) Description 09/18/2016 Orders Only [facility] Provider, MD Niharika [address] [place] [address] Social History Tobacco Use Types Packs/Day Years Used Date Smoking Tobacco: Former Cigarettes Q uit: 08/12/1997 Alcohol Use Standard Drinks/Week Comments Yes 0 (1 standard drink = 0.6 oz pur e alcohol) Comments Unknown Sex and Gender Information Value Date Recorded Sex Assigned at Not on file Legal Sex Female 7:21 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
--- OUTSIDE RECORDS SUMMARY | 2025-06-10 17:14 | XMS_ITS | Encounter Summary ---
Author Organization [facility] Address [address] [facility] [address] [place] [address] Care Team Providers Care Meteorology Teacher Name Role Phone John Tavares MD Primary Care Provider [phone] Jonathon Najera MD Unavailable [phone] Encounter Details Date Type Department Care Team (Late st Contact Info) Description 11/22/2016 Orders Only [facility] Provider, MD Niharika [address] [phone] Social History Tobacco Use Types Packs/Day Years Used Date Smoking Tobacco: Former Cigarettes Q uit: 08/12/1997 Alcohol Use Standard Drinks/Week Comments Yes 0 (1 standard drink = 0.6 oz pur e alcohol) Comments Unknown Sex and Gender Information Value Date Recorded Sex Assigned at Not on file Legal Sex Female 7:21 PM SOCIAL WORK LECTURER Gender Identity Female 03/25/2021 11:48 AM CDT [...] on filedocumented in this encounter Care Teams Meteorology Teacher Relationship Specialty Start Date End Date John Tavares MD PCP - General 11/09/16 Jonathon Najera MD [address] [address] [place] [address] [place] [address] Electronics Inspector Cardiology 05/30/17 documented as of this encounter
--- OUTSIDE RECORDS SUMMARY | 2025-06-10 17:14 | XMS_ITS | Encounter Summary ---
Author Organization [facility] Address [address] [facility] [address] [place] [address] Care Team Providers Care Client Technologies Specialist Name Role Phone John Tavares MD Primary Care Provider + [phone] John Tavares MD Primary Care Provider + [phone] Jonathon Najera MD Unavailable [phone] Encounter Details Date Type Department Care Team (Late st Contact Info) Description 08/29/2016 Orders Only [facility] Provider, MD Niharika [address] [place] [address] Social History Tobacco Use Types Packs/Day Years Used Date Smoking Tobacco: Former Cigarettes Q uit: 08/12/1997 Alcohol Use Standard Drinks/Week Comments Yes 0 (1 standard drink = 0.6 oz pur e alcohol) Comments Unknown Sex and Gender Information Value Date Recorded Sex Assigned at Not on file Legal Sex Female 7:21 PM EARTH SCIENCE LABORATORY TECHNICIAN Gender Identity Female 03/25/2021 11:48 AM [...] on filedocumented in this encounter Care Teams Client Technologies Specialist Relationship Specialty Start Date End Date John Tavares MD PCP - General 11/09/16 John Tavares MD PCP - General 05/27/13 11/08/16 Jonathon Najera MD [address] [place] [address] Cab Worker Cardiology 05/30/17 documented as of this encounter
--- OUTSIDE RECORDS SUMMARY | 2025-06-10 17:14 | XMS_ITS | Encounter Summary ---
Author Organization [facility] Address [address] [facility] [address] [place] [address] Care Team Providers Care Director Data Management Name Role Phone John Tavares MD Primary Care Provider + [phone] John Tavares MD Primary Care Provider + [phone] Jonathon Najera MD Unavailable [phone] Encounter Details Date Type Department Care Team (Late st Contact Info) Description 10/03/2016 Orders Only [facility] Provider, MD Niharika [address] [place] [address] Social History Tobacco Use Types Packs/Day Years Used Date Smoking Tobacco: Former Cigarettes Q uit: 08/12/1997 Alcohol Use Standard Drinks/Week Comments Yes 0 (1 standard drink = 0.6 oz pur e alcohol) Comments Unknown Sex and Gender Information Value Date Recorded Sex Assigned at Not on file 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
--- OUTSIDE RECORDS SUMMARY | 2025-06-10 17:14 | XMS_ITS | Encounter Summary ---
Author Organization [facility] Address [address] [facility] [address] [place] [address] Care Team Providers Care Independent Agent Music Education Name Role Phone John Tavares MD Primary Care Provider [phone] Jonathon Najera MD Unavailable [phone] Encounter Details Date Type Department Care Team (Late st Contact Info) Description 11/21/2016 Orders Only [facility] ProviderNiharika MD [address] [place] [address] Social History Tobacco Use Types Packs/Day Years Used Date Smoking Tobacco: Former Cigarettes Q uit: 08/12/1997 Alcohol Use Standard Drinks/Week Comments Yes 0 (1 standard drink = 0.6 oz pur e alcohol) Comments Unknown Sex and Gender Information Value Date Recorded Sex Assigned at Not on file Legal Sex Female 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
--- OUTSIDE RECORDS SUMMARY | 2025-06-10 17:14 | XMS_ITS | Clinical Summary ---
Author Organization [facility] Address [address] [place] [address] Care Team Providers Care Content Checker Name Role Phone John Tavares MD Primary Care Provider Jonathon Najera MD Unavailable [phone] Allergies Active Allergy Reactions Criticality Noted Date [...] Active Problems Problem Noted Date Diagnosed Date Recurrent chest pain 06/10/2025 Angina pectoris, unstable 04/06/2025 Chest pain 04/06/2025 [...] Encounters Date Type Department Care Team Description 06/10/2025 11:45 AM CDT Office Visit [facility] [address] [place] [address] Jonathon Najera MD Essential hypertension (Primary Dx); Nonrheumatic aortic valve stenosis; Nonrheumatic mitral valve regurgitation; Presence of cardiac pacemaker; Recurrent chest pain 04/30/2025 11:30 AM CDT - 04/30/2025 1:00 PM CDT Surgery [facility] [address] [place] [address] Aniceto Mojica MD LEFT HEART CATHETERIZATION WITH CORONARY ANGIOGRAPHY AND WITH OR WITHOUT LEFT VENTRICULOGRAM [id number] 04/30/2025 9:18 AM CDT - 04/30/2025 2:59 PM CDT Hospital Encounter [facility] [address] [place] [address] Aniceto Mojica MD Angina pectoris, unstable (HCC) Discharge Disposition: Discharge to home or self care 04/06/2025 1:00 PM CDT Office Visit [facility] [address] [place] [phone] Jonathon Najera MD Presence of cardiac pacemaker (Primary Dx); Nonrheumatic aortic valve stenosis; Essential hypertension; NSVT (nonsustained ventricular tachycardia) (HCC); Nonrheumatic mitral valve regurgitation; Lipid screening; Chest pain, unspecified type 04/06/2025 Telephone [facility] [address] [place] [address] Jonathon Najera MD from Last 3 Months Surgical History Surgery Date Site/Laterality Comments FRACTURE SURGERY 1985 HYSTERECTOMY 1979 SPINE SURGERY 2003 OTHER SURGICAL HISTORY modified maze procedure to isolate the SA node INSERT / REPLACE / REMOVE PACEMAKER VENA CAVA FILTER PLACEMENT CARDIAC CATHETERIZATION 04/30/2025 N/A Procedure: LEFT HEART CATHETERIZATION WITH CORONARY ANGIOGRAPHY AND WITH OR WITHOUT LEFT VENTRICULOGRAM 72092; Surgeon: Aniceto Mojica MD; Location: CARDIAC CRYPTOLOGICAL TECHNICIAN; Service: Cardiovascular; Laterality: N/A; Medical devices from this surgery are in the Medical Devices section. Medical History Medical History Date Comments Hx Other Medical aasthma, status post hysterectomy, A. fib, DVT Hx Other Medical sstatus post IV C filter, status post maze procedu Hx Other Medical lumbar laminect rai and discectomy, hypertension, E Anxiety 2015 Arthritis 2009 Asthma Childhood Cataract 2017 Heart disease 1994 Hypertension 2006 Chronic kidney disease 2021 Menstrual problem 1974 Angina pectoris, unstable (HCC) Motion sickness Arrhythmia [...] on file Legal Sex Female 7:21 PM GARAGE HAND Gender Identity Female 03/25/2021 11:48 AM CDT Sexual Orientation Not on file Obstetrics History Last Filed Vital Signs Vital Sign Reading Time Taken Comments Blood Pressure 128/60 06/10/2025 11:46 AM CDT Pulse 85 06/10/2025 11:46 AM CDT Temperature 36.7 C (98.1 F) 04/30/2025 10:02 AM CDT Respiratory Rate 17 04/30/2025 10:02 AM CDT Oxygen Saturation 97% 06/10/2025 11:46 AM CDT Inhaled Oxygen Concentration - - Weight 103.9 kg (229 lb) 06/10/2025 11:46 AM CDT Height 167.6 cm (5' 6) 06/10/2025 11:46 AM CDT Body Mass Index 36.96 06/10/2025 11:46 AM CDT Plan of Treatment Health Maintenance [...] Assessment 04/30/2026 04/30/2025 Pneumococcal vaccine 65+ Completed 019, 04/12/2019, 06/02/2018, Additional history exists Medical Devices Implanted Type Area Liquor Gallery Operator Device Identifier Shelf Expiration Date Model / Serial / Lot Pacemaker-06/12 Implanted:06/12 by Cely Coffey MD (Quantity not on file) Pacemaker Chest Medtronic SSS, Afib / / CHRONIC ATRIAL LEAD 996 [employer] V[employer] System Closure Repair Femoral Artery Suture Mediated Perclose Prostyle 49933-90 - [id number] Implanted:Qty: 1 on 04/30/2025 by Aniceto Mojica MD at [facility] [employer] Vascular 02/08/2027 48331-83 / [id number] Procedures Procedure Name Priority Date/Time Associated Diagnosis Comments LEFT HEART CATHETERIZATION WITH CORONARY ANGIOGRAPHY AND WITH AND WITHOUT LEFT VENTRICULOGRAM Routine 04/30/2025 11:51 AM CDT Angina pectoris, unstable (HCC) MODERATE SEDATION SAME MD JESSICA ADDL 15 MIN [id number] 04/30/2025 10:45 AM CDT Angina pectoris, unstable (HCC) MODERATE SEDATION 04/30/2025 10: 45 AM CDT Angina pectoris, unstable (HCC) EGFR STAT 04/30/2025 10:24 AM CDT DIFFERENTIAL AUTO STAT 04/30/2025 10: 24 AM CDT CBC WITH AUTO DIFFERENTIAL STAT 04/30/2025 10:24 AM CDT BASIC METABOLIC PANEL STAT 04/30/2025 10:24 AM CDT POCT LIPID PANEL Routine 04/06/2025 1:00 PM CDT Lipid screening from Last 3 Months Results * LEFT HEART CATHETERIZATION WITH CORONARY ANGIOGRAPHY AND WITH AND WITHOUT LEFT VENTRICULOGRAM (04/30/2025 11:51 AM CDT) Anatomical Region Laterality Modality X-Ray Angiograph y Narrative 04/30/2025 12:06 PM CDT CARDIAC CATHETERIZATION REPORT Minnie Serrato IP ENCOUNTER: [id number] Date of Procedure: 04/30/2025 BIRTHDATE: 1950 SOCCER REFEREE: Aniceto Mojica MD REFERRING PHYSICIAN: Dr. Najera [...] patient. Patient was then brought into the geophysical laboratory director and was draped and prepped in the [...] * (ABNORMAL) eGFR (04/30/2025 10:24 AM CDT) [facility] eGFR 48(L) >=60 mL/min/1. 73 m2 Comment: [...] MD LAB BLOOD ORDERABLES Final Resul t [facility] [id number] [place] [address] * Differential, auto (04/30/2025 10:24 AM CDT) Neutrophil abs 4.51 1.50 - 6.50 K/cumm Imm gran abs 0.01 0.00 - 0.10 K/cumm [facility] Lymphocyte abs 1.24 0.80 - 3.30 K/cumm [facility] Monocyte abs 0.58 0.20 - 0.80 K/cumm [facility] Eosinophil abs 0.33 0.00 - 0.50 K/cumm [facility] Basophil abs 0.03 0.00 - 0.10 K/cumm [facility] Neutrophil pct 67.4 % [facility] Comment: Interpretive Data Percent cell count reference ranges are not reported, since discordance with absolute values may lead to misinterpretation of CBC data. Current Interpretive Data was last revised on 2017. Imm gran pct 0.1 % [facility] Comment: Interpretive Data Percent cell count reference ranges are not reported, since discordance with absolute values may lead to misinterpretation of CBC data. Current Interpretive Data was last revised on 2017. Lymphocyte pct 18.5 % [facility] Comment: Interpretive Data Percent cell count reference ranges are not reported, since discordance with absolute values may lead to misinterpretation of CBC data. Current Interpretive Data was last revised on 2017. Monocyte pct 8.7 % [facility] Comment: Interpretive Data Percent cell count reference ranges are not reported, since discordance with absolute values may lead to misinterpretation of CBC data. Current Interpretive Data was last revised on 2017. Eosinophil pct 4.9 % [facility] Comment: Interpretive Data Percent cell count reference ranges are not reported, since discordance with absolute values may lead to misinterpretation of CBC data. Current Interpretive Data was last revised on 2017. Basophil pct 0.4 % [facility] Comment: Interpretive Data Percent cell count reference ranges are not reported, since discordance with absolute values may lead to misinterpretation of CBC data. Current Interpretive Data was last revised on 2017. Blood 04/30/2025 10:2 4 AM CDT 04/30/2025 10:26 AM CDT us Aniceto Mojica MD LAB BLOOD ORDERABLES Final Resul t [facility] [address] [place] [address] * (ABNORMAL) CBC with auto differential (04/30/2025 10:24 AM CDT) WBC 6.70 3.80 - 9.90 K/cumm Hgb 12.5 11.9 - 15.5 g/dL [facility] Hct 38.3 35.6 - 45.5 % [facility] Plt 346 150 - 400 K/cumm [facility] MPV 9.2 9.1 - 12.3 fL [facility] RBC 3.89(L) 3.90 - 5.20 M/cumm [facility] MCV 98.5(H) 81.3 - 96.4 fL [facility] MCH 32.1 27.1 - 33.3 pg [facility] MCHC 32.6 32.3 - 35.7 g/dL [facility] RDW CV 12.4 11.1 - 14.9 % [facility] RDW SD 44.8 35.7 - 48.1 fL [facility] NRBC abs 0.00 0.00 - 0.01 K/cumm [facility] Blood 04/30/2025 10:2 4 AM CDT 04/30/2025 10:26 AM CDT Narrative [facility] - 04/30/2025 10:37 AM CDT If most recent labs were drawn prior to 4 AM, draw only prior to initiating procedure. us Aniceto Mojica MD LAB BLOOD ORDERABLES Final Resul t [facility] [address] [place] [address] * (ABNORMAL) Basic metabolic panel (04/30/2025 10:24 AM CDT) Sodium 139 135 - 145 mmol/L Potassium, pl 4.3 3.3 - 4.9 mmol/L [facility] Chloride 100 97 - 110 mmol/L [facility] CO2 23 22 - 32 mmol/L [facility] Anion gap 16(H) 2 - 15 mmol/L [facility] BUN 19 6 - 25 mg/dL [facility] Creatinine 1.20(H) 0.60 - 1.10 mg/dL [facility] Glucose 112 70 - 199 mg/dL [facility] Comment: Interpretive Data Fasting glucose >/= 126 [...] 2022. Calcium 9.9 8.5 - 10.3 mg/dL [facility] Blood 04/30/2025 10:2 4 AM CDT 04/30/2025 10:26 AM CDT us Aniceto Mojica MD LAB BLOOD ORDERABLES Final Resul t [facility] [address] [place] [address] * POCT lipid panel (04/06/2025 1:00 PM CDT) Cholesterol, POC 166 <200 MG/DL HDL, POC 87 >=40 mg/dL Triglycerides, POC 80 <=149 mg/dL LDL Cholesterol POC 63 <=129 mg/dL Chol/HDL Ratio, POC 0.7 NONE Non-HDL Cholesterol, POC 79 NONE mg/dL Cholesterol Total, POC 166 30 - 199 mg/dL Capillary blood 04/06/2025 1 :00 PM CDT us Jonathon Najera MD POINT OF CARE TEST ORDERA BLES Final Result from Last 3 Months Insurance MEDICARE [facility] MEDICARE [facility] Advance Directives For more information, please contact: [phone] Documents on File Type Date Recorded Patient Customer Technical Services Manager Expl anation ADVANCE DIRECTIVE 04/30/2025 10:19 AM Eugene r of Brain Surgeon-Medical * Full Code (Latest Code Status on File) Date Activated Date Inactivated Comments 04/30/2025 12:40 PM 04/30/2025 6:59 PM Care Teams Content Checker Relationship Specialty Start Date End Date John Tavares MD PCP - General 11/09/16 Jonathon Najera MD [address] [place], [address] [place] [address] Pearl Diver Cardiology 05/30/17
--- NOTE | 2025-06-10 18:26 | ED.LOWEXIN ---
HPI - Extremity Injury (Lower) General Chief Complaint: Extremity Injury, Lower Stated Complaint: R leg lac, glf Time Seen by Provider: 06/10/25 16:18 Source: patient Mode of arrival: EMS Limitations: no limitations History of Present Illness HPI Narrative: 74-year-old with a history of hypertension status post right knee arthroplasty 2 years ago here with complaint of laceration to right knee. Patient states that she tripped on a shoe and fell on the knee. Denies any head and neck injuries. Onset (ago): hour(s) (1) Type of Injury: laceration Place: home Severity: moderate Relieving factors: nothing Exacerbating factors: nothing Context: fall Other symptoms: none Related Data Home Medications ?Medication ?Instructions ?Recorded ?Confirmed ?Last Taken ?Type aspirin 325 mg tablet 325 mg PO DAILY 05/23/20 10/30/24 03/26/23 History Held on 04/02/23. Instructions: Resume on 04/16/23. cholecalciferol (vitamin D3) 5,000 unit DAILY 03/13/23 10/30/24 03/29/23 History fluticasone propionate 50 1 spray intranasal HS 03/13/23 10/30/24 04/01/23 History mcg/actuation nasal spray,suspension iron 25 mg DAILY 03/13/23 10/30/24 03/29/23 History multivitamin 1 tablet DAILY 03/13/23 10/30/24 03/29/23 History omega 5-thz-lyl-fish oil 1,200 mg 1 cap PO DAILY 03/13/23 10/30/24 03/29/23 History (144 mg-216 mg) capsule (Fish Oil) Allergies Allergy/AdvReac Type Severity Reaction Status Date / Time Beta-Blockers AdvReac Intermediate Nausea and Verified 02/17/25 14:43 (Beta-Adrenergic Bloc Vomiting prochlorperazine AdvReac Unknown Rash Verified 02/17/25 14:43 atorvastatin (From Lipitor) AdvReac IRREGULAR Verified 02/17/25 14:43 HEAR RATE Review of Systems Review of Systems: All systems reviewed & are unremarkable except as noted in HPI and below Constitutional: Constitutional: Reports no additional constitutional complaints Eyes: Eyes: Reports no additional eye complaints ENT: Reports system reviewed and no additional complaints, except as documented Cardiovascular: Cardiovascular: Reports no additional cardiovascular complaints Respiratory: Respiratory: Reports no additional respiratory complaints Gastrointestinal: Gastrointestinal: Reports no additional gastrointestinal complaints Musculoskeletal: Musculoskeletal: Reports as per HPI Integumentary/Breasts: Skin/Breast: Reports as per HPI Neurologic: Reports system reviewed and no additional complaints, except as documented PMFSH Past Medical History Medical History Low kidney function CKD (chronic kidney disease) Skin tag Knee pain Secondary hyperparathyroidism, not elsewhere classified Right knee pain Fractured elbow Chronic kidney disease, stage 2 (mild) Function kidney decreased Hx of deep venous thrombosis Low hemoglobin Mass of right kidney Surgical History Surgical History Hx of total knee replacement History of total right knee replacement (~04/02/23) Imprint Family History Family History Father Hypertension Cerebrovascular accident Sibling Family history of diabetes mellitus in first degree relative Heart disease Mother Hypertension Family history of diabetes mellitus in first degree relative Social History Social History Smoking packs per day: 0.5 Smoking cigarettes per day: 10.0 Years smoked: 6 Smoking pack-years: 3.00 Smoking status: Former smoker Tobacco type: cigarettes Second hand tobacco smoke exposure: No Smoking end date: 08/12/13 Additional smoking assessment comments: PT DENIES ALL FORMS OF TOBACCO USE Alcohol intake: current Drinks per week: 7 Alcohol use details: 1 DRINK/NOC Substance use: current Substance use type: marijuana Other substance usage details: 08/13 GUMMIE @ NOC FOR SLEEP Last use: 03/12/23 Do You Feel Safe in your Home?: Yes Lack of Transportation: No Lack of Food: Never True Current Housing: I Have Housing Concerned About Future Housing: No Difficulty Paying Gas/Electric Bills: No Difficulty Paying for Meds: No Currently Unemployed: No Education: High School Diploma/GED Difficulty w/ Childcare or Family Care: No Living arrangements: with family 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 HEAD: Normocephalic, atraumatic. EYES: PERRLA and EOMI. ENT: Nares clear, no rhinorrhea or epistaxis. Mucous membranes moist. NECK: Supple. CHEST: Clear to auscultation. No respiratory distress. HEART: Regular rate and rhythm. No murmur heard. Normal peripheral pulses. EXTREMITIES: Normal range of motion. No edema. Has a horizontal laceration on the right knee about 6 cm in length.. No knee capsule or hardware visible on wound exploration . SKIN: Warm, dry, no rash. NEURO: No focal deficits. Alert and oriented x3. PSYCH: Normal mood and affect. Course Course Emergency Course: Discussed with Dr. Melgoza about he Xray and wound . okay to suture and will follow up in the office ,informed pt abut the Xray findings and my discussion with Dr. Melgoza . Vital Signs Vital signs: Vital Signs Temperature 36.5 C 06/10/25 15:54 Pulse Rate 84 06/10/25 15:54 Respiratory Rate 16 06/10/25 15:54 Blood Pressure 140/70 06/10/25 15:54 Pulse Oximetry 98 06/10/25 15:54 Oxygen Delivery Room Air 06/10/25 15:54 Temperature 36.5 C 06/10/25 15:54 Pulse Rate 84 06/10/25 15:54 Respiratory Rate 16 06/10/25 15:54 Blood Pressure 140/70 06/10/25 15:54 Pulse Oximetry 98 06/10/25 15:54 Oxygen Delivery Room Air 06/10/25 15:54 Procedures Laceration Laceration 1: Date: 06/10/25 Site: lower extremity (Right knee) Side (If applicable): right Size (cm): 6 Description: linear Depth: simple, single layer Local Anesthetic: lidocaine 1% and with epi Amount of anesthesia used (mL): 20 Pre-repair: wound explored and irrigated extensively ====== Skin Level ====== Skin layer closed with: nylon (4) Size (cm): 4-0 Number of sutures: 18 ====== Subcutaneous Layer ====== Technique: running ====== Muscle Layer ====== ====== Tendon Layer ====== Discharge Plan Discharge Clinical Impression: Laceration of knee, right Qualifiers: Encounter type: initial encounter Qualified Code(s): S81.011A - Laceration without foreign body, right knee, initial encounter Patient Disposition: Home Condition: Stable Instructions: Antibiotic Form Patient Language: Montenegrin Prescriptions: New cephalexin 500 mg capsule 500 mg PO Q8H 7 Days Qty: 21 0RF hydrocodone-acetaminophen 5-325 mg tablet 1 tablet PO Q8H PRN (Reason: pain) Qty: 14 0RF No Action spironolactone 25 mg tablet 25 mg PO DAILY Qty: 90 3RF diltiazem HCl [DILT-XR] 240 mg capsule,ext.rel 24h degradable 240 mg PO DAILY Qty: 90 3RF aspirin 325 mg tablet 325 mg PO DAILY lisinopril 20 mg tablet 20 mg PO DAILY Qty: 90 3RF alum-mag hydroxide-simeth [Maalox Advanced] 200-200-20 mg/5 mL suspension 15 ml PO QID PRN (Reason: indigestion) Qty: 3000 0RF Rx Instructions: administer between meals and at bedtime famotidine [Pepcid] 20 mg tablet 20 mg PO BID Qty: 20 0RF ondansetron 4 mg tablet,disintegrating 4 mg PO Q8H PRN (Reason: nausea and vomiting) Qty: 10 0RF pantoprazole [Protonix] 40 mg tablet,delayed release (DR/EC) 40 mg PO HS 28 Days Qty: 28 0RF multivitamin Tablet 1 tablet DAILY fluticasone propionate 50 mcg/actuation [place],Suspension 1 spray INTRANASAL HS Rx Instructions: administer into each nostril omega 6-lis-web-fish oil [Fish Oil] 1,200 (144-216) mg Capsule 1 cap PO DAILY cholecalciferol (vitamin D3) 5,000 unit DAILY iron 25 mg DAILY hydroxyzine HCl 25 mg tablet 25 mg PO BID PRN (Reason: anxiety) Qty: 30 3RF rosuvastatin 20 mg tablet 20 mg PO DAILY Qty: 90 3RF tramadol 50 mg tablet 50 mg PO Q6H PRN (Reason: pain) Qty: 120 0RF budesonide-formoterol [Symbicort] 80-4.5 mcg/actuation HFA aerosol inhaler 2 puff INHALATION Q12H Qty: 6.9 4RF albuterol sulfate 90 mcg/actuation aerosol powdr breath activated 1 inh inhalation Q4-6H PRN (Reason: shortness of breath) Qty: 1 0RF escitalopram oxalate 20 mg tablet 20 mg PO DAILY Qty: 90 0RF Patient Comments: TAKES AT HS Rx Instructions: hs Follow-up/Referrals: John Tavares MD [Primary Care Provider, Family Practice] Zan Melgoza MD [Physician, Orthopedics] Time of Disposition: 18:36
[2025-06-10] MEDS: WATER, STERILE FOR INJECTION 10 ML VIAL XX (18:28)
[2025-06-10 19:20] VITALS: BP 140/70; PULSE 78; RESP 17; O2SAT 100
== END 2025-06-10 19:22 | disposition home or self-care (01) ==
PROVIDERS: Emergency Provider Family Medicine; PCP Family Medicine
DX: S81.011A Laceration without foreign body, right knee, initial encounter (principal); I12.9 Hypertensive chronic kidney disease with stage 1 through stage 4 chronic kidney disease, or unspecified chronic kidney disease; N18.2 Chronic kidney disease, stage 2 (mild); N25.81 Secondary hyperparathyroidism of renal origin; Z96.651 Presence of right artificial knee joint; Z86.718 Personal history of other venous thrombosis and embolism; Z87.891 Personal history of nicotine dependence; Z79.82 Long term (current) use of aspirin; Z79.899 Other long term (current) drug therapy; W18.09XA Striking against other object with subsequent fall, initial encounter
CPT/HCPCS: 12002; 73562; 96372; 99283; J0690; J2004

== ENCOUNTER 2025-06-24 10:55 | Outpatient (CLI) | payer MEDICARE, OTHER, SELFPAY ==
--- NOTE | ~2025-06-24 | CT_ITS ---
EXAM/PROCEDURE: CTA chest HISTORY: chest pain COMPARISON: 10/20/2024 TECHNIQUE: IV contrast enhanced CT PA FINDINGS: No pulmonary emboli. No thoracic aortic aneurysm or dissection. Heart size normal. No significant pericardial effusion or bulky lymphadenopathy. Central and large airways are patent. Lungs are clear. Sternal retention wires, and left subclavian pacemaking device/wires stable. No acute process seen in the visualized upper abdomen., Small hiatal hernia noted. Lithiasis also present. Diffuse degenerative changes throughout the bones. Extra thoracic soft tissues unremarkable. IMPRESSION: No pulmonary emboli or gross acute intrathoracic process. Reviewed, dictated and finalized at location A. RTISING ASSISTANT MANAGER
[2025-06-24 11:30] LABS: Estimated Glomerular Filt Rate 37
--- OUTSIDE RECORDS SUMMARY | 2025-06-24 12:01 | XMS_ITS | Encounter Summary ---
Author Organization [facility] Address [address] [facility] [address] [place] [address] Care Team Providers Care Senior Editor Name Role Phone John Tavares MD Primary Care Provider + [phone] Jonathon Najera MD Unavailable [phone] Encounter Details Date Type Department Care Team (Late st Contact Info) Description 12/10/2016 [facility] Only [facility] ProviderNiharika MD [address] [place] [address] Social History Tobacco Use Types Packs/Day Years Used Date Smoking Tobacco: Former Cigarettes Q uit: 08/12/1997 Alcohol Use Standard Drinks/Week Comments Yes 0 (1 standard drink = 0.6 oz pur e alcohol) Comments Unknown Sex and Gender Information Value Date Recorded Sex Assigned at Not on file Legal Sex Female 7:21 PM MAGNETIC 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
--- OUTSIDE RECORDS SUMMARY | 2025-06-24 12:01 | XMS_ITS | Clinical Summary ---
Author Organization [facility] Address [address] [facility] [address] Care Team Providers Care Project Scientist Name Role Phone John Tavares MD Primary Care Provider [phone] Source Comments [facility],non-owned Affiliates and Associated Physician Practices is amultiple site organization consisting of ambulatory clinics and hospital sitesin [place], [place], [place] and [place]. This disclosure is being madepursuant to the Care Everywhere program and may not contain all information available regarding this patient. Last updated 18.[facility]ix Allergies No known active allergies Immunizations Immunization Administration Dates Next Due INFLUENZA VACCINE, QUADR. 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
--- OUTSIDE RECORDS SUMMARY | 2025-06-24 12:01 | XMS_ITS | Encounter Summary ---
Author Organization [facility] Address [address] [facility] [address] [place] [address] Care Team Providers Care Environmental Engineer Name Role Phone John Tavares MD Primary Care Provider + [phone] John Tavares MD Primary Care Provider + [phone] Jonathon Najera MD Unavailable [phone] Encounter Details Date Type Department Care Team (Late st Contact Info) Description 10/03/2016 [facility] Only [facility] Provider, MD Niharika [address] [place] [address] Social History Tobacco Use Types Packs/Day Years Used Date Smoking Tobacco: Former Cigarettes Q uit: 08/12/1997 Alcohol Use Standard Drinks/Week Comments Yes 0 (1 standard drink = 0.6 oz pur e alcohol) Comments Unknown Sex and Gender Information Value Date Recorded Sex Assigned at Not on file Legal Sex Female 7:21 PM INSULATION SUPERVISOR Gender Identity Female 03/25/2021 11:48 AM [...] on filedocumented in this encounter Care Teams Environmental Engineer Relationship Specialty Start Date End Date John Tavares MD PCP - General 11/09/16 John Tavares MD PCP - General 05/27/13 11/08/16 Jonathon Najera MD [address] [place] [address] Precision Lathe Operator Cardiology 05/30/17 documented as of this encounter
--- OUTSIDE RECORDS SUMMARY | 2025-06-24 12:01 | XMS_ITS | Clinical Summary ---
Author Organization [facility] Address [address] [place] [address] Phone Care Team Providers Care Director Cloud Transformation Name Role Phone John Tavares MD Primary Care Provider [phone] Allergies Active Allergy Reactions Criticality Noted Date [...] MG tablet 50 mg 5 Active GLUCOSAMINE-CHO TMTHAS-ELCDU-[id number] PO take 1 by Oral route every [...] Vaccine (#1) 2025 06/12/2021, 2016 Insurance MEDICARE [facility] Care Teams Director Cloud Transformation Relationship Specialty Start Date End Date John Tavares MD [address] [place] [address] PCP - General Family Medicine 09/20/21
--- OUTSIDE RECORDS SUMMARY | 2025-06-24 12:01 | XMS_ITS | Encounter Summary ---
Author Organization [facility] Address [address] [facility] [place] [address] Care Team Providers Care Wind Farm Electrical Systems Designer Name Role Phone John Tavares MD Primary Care Provider [phone] Encounter Details Date Type Department Care Team (Late st Contact Info) Description 11/06/2023 Lab Requisition [facility] - DermPath Lab [address] [place] [address] John Tavares MD [address] [place] [address] Social History Tobacco Use Types Packs/Day Years Used Date Smoking Tobacco: Never Assessed Comments Unknown Sex and Gender Information Value Date Recorded Sex Assigned at Not on file Legal Sex Female 12:54 PM DRY 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 COUNTER 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 Gender Identity Not on file Sexual Orientation Not on file documented as of this encounter Plan of Treatment Not on file documented as of this encounter Procedures Procedure Name Priority Date/Time Associated Diagnosis Comments DERMATOPATHOLOGY Routine 11/06/2023 3:33 AM CDT documented in this encounter Results * DERMATOPATHOLOGY (11/06/2023 3:33 AM CDT) Case Report Dermatopathology Report Case: [id number] Authorizing Provider: John Tavares MD Collected: 11/06/2023 03:33 AM Ordering Location: [facility] - Received: 11/07/2023 [...] characteristic determined by the Dermatopathology Laboratory at [facility], directed by Dr. India Trujillo. These tests need not be, and therefore are not, approved by the [place] Food and Drug Administration. The tests are used for clinical purposes. Billing Codes Specimen Charges Stain Charges 54161 1 1:35 PM CDT DERMATOPATHOLOGY LABORATORY Embedded Images 1:35 PM CDT DERMATOPATHOLOGY LABORATORY Pathology/Cytolo gy TISSUE SPECIMEN FROM SKIN / Unknown 11/06/2023 3:33 AM CDT 11/07/2023 7:12 AM CDT us John Tavares MD LAB - PATHOLOGY/CYTOLOGY ORDE JC Final Result DERMATOPATHOLOGY LABORATORY [facility] - Department of Dermatology [facility] Medicine [address] [place] [address], [address] [phone] documented in this encounter Visit Diagnoses Not on filedocumented in this encounter Care Teams Wind Farm Electrical Systems Designer Relationship Specialty Start Date End Date John Tavares MD [address] [place] [address] PCP - General Family Medicine 06/18/17 documented as of this encounter
--- OUTSIDE RECORDS SUMMARY | 2025-06-24 12:01 | XMS_ITS | Encounter Summary ---
Author Organization [facility] Address [address] [facility] [address] [place] [address] Care Team Providers Care It Support Specialist Name Role Phone John Tavares MD Primary Care Provider [phone] Jonathon Najera MD Unavailable [phone] Encounter Details Date Type Department Care Team (Late st Contact Info) Description 11/21/2016 Orders Only [facility] ProviderNiharika MD [address] [place] [address] Social History Tobacco Use Types Packs/Day Years Used Date Smoking Tobacco: Former Cigarettes Q uit: 08/12/1997 Alcohol Use Standard Drinks/Week Comments Yes 0 (1 standard drink = 0.6 oz pur e alcohol) Comments Unknown Sex and Gender Information Value Date Recorded Sex Assigned at Not on file 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
--- OUTSIDE RECORDS SUMMARY | 2025-06-24 12:01 | XMS_ITS | Encounter Summary ---
Author Organization [facility] Address [address] [facility] [address] [place] [address] Care Team Providers Care Sap Architect Name Role Phone John Tavares MD Primary Care Provider + [phone] John Tavares MD Primary Care Provider + [phone] Jonathon Najera MD Unavailable [phone] Encounter Details Date Type Department Care Team (Late st Contact Info) Description 09/18/2016 Orders Only [facility] Provider, MD Niharika [address] [place] [address] Social History Tobacco Use Types Packs/Day Years Used Date Smoking Tobacco: Former Cigarettes Q uit: 08/12/1997 Alcohol Use Standard Drinks/Week Comments Yes 0 (1 standard drink = 0.6 oz pur e alcohol) Comments Unknown Sex and Gender Information Value Date Recorded Sex Assigned at Not on file Legal Sex Female 7:21 PM OVERSEAMER Gender Identity Female 03/25/2021 11:48 AM CDT [...] on filedocumented in this encounter Care Teams Sap Architect Relationship Specialty Start Date End Date John Tavares MD PCP - General 11/09/16 John Tavares MD PCP - General 05/27/13 11/08/16 Jonathon Najera MD [address] [place] [address] Human Geography Faculty Member Cardiology 05/30/17 documented as of this encounter
--- OUTSIDE RECORDS SUMMARY | 2025-06-24 12:01 | XMS_ITS | Encounter Summary ---
Author Organization [facility] Address [address] [facility] [address] [place] [address] Care Team Providers Care Vulcanized Fiber Unit Operator Name Role Phone John Tavares MD Primary Care Provider + [phone] Jonathon Najera MD Unavailable [phone] Encounter Details Date Type Department Care Team (Late st Contact Info) Description 12/31/2016 Orders Only [facility] ProviderNiharika MD [address] [place] [address] Social History Tobacco Use Types Packs/Day Years Used Date Smoking Tobacco: Former Cigarettes Q uit: 08/12/1997 Alcohol Use Standard Drinks/Week Comments Yes 0 (1 standard drink = 0.6 oz pur e alcohol) Comments Unknown Sex and Gender Information Value Date Recorded Sex Assigned at Not on file Legal Sex Female 7:21 PM PRODUCTION ENGINE REPAIRER Gender Identity Female 03/25/2021 11:48 AM CDT [...] on filedocumented in this encounter Care Teams Vulcanized Fiber Unit Operator Relationship Specialty Start Date End Date John Tavares MD PCP - General 11/09/16 Jonathon Najera MD [address] [facility] [place] [address] Water Manager Cardiology 05/30/17 documented as of this encounter
--- OUTSIDE RECORDS SUMMARY | 2025-06-24 12:01 | XMS_ITS | Encounter Summary ---
Author Organization [facility] Address [address] [facility] [address] [place] [address] Care Team Providers Care Manufacturing Sales Representative Name Role Phone John Tavares MD Primary Care Provider + [phone] John Tavares MD Primary Care Provider + [phone] Jonathon Najera MD Unavailable [phone] Encounter Details Date Type Department Care Team (Late st Contact Info) Description 08/29/2016 Orders Only [facility] Provider, MD Niharika [address] [place] [address] Social History Tobacco Use Types Packs/Day Years Used Date Smoking Tobacco: Former Cigarettes Q uit: 08/12/1997 Alcohol Use Standard Drinks/Week Comments Yes 0 (1 standard drink = 0.6 oz pur e alcohol) Comments Unknown Sex and Gender Information Value Date Recorded Sex Assigned at Not on file Legal Sex Female 7:21 PM BOG CUTTER Gender Identity Female 03/25/2021 11:48 AM CDT [...] on filedocumented in this encounter Care Teams Manufacturing Sales Representative Relationship Specialty Start Date End Date John Tavares MD PCP - General 11/09/16 John Tavares MD PCP - General 05/27/13 11/08/16 Jonathon Najera MD [address] [place] [address] Microsystems Engineer Cardiology 05/30/17 documented as of this encounter
--- OUTSIDE RECORDS SUMMARY | 2025-06-24 12:01 | XMS_ITS | Encounter Summary ---
Author Organization [facility] Address [address] [facility] [address] [place] [address] Care Team Providers Care Glove Sewer Name Role Phone John Tavares MD Primary Care Provider + [phone] John Tavares MD Primary Care Provider + [phone] Jonathon Najera MD Unavailable [phone] Encounter Details Date Type Department Care Team (Late st Contact Info) Description 08/15/2016 Orders Only [facility] Provider, MD Niharika [address] [place] [address] Social History Tobacco Use Types Packs/Day Years Used Date Smoking Tobacco: Former Cigarettes Q uit: 08/12/1997 Alcohol Use Standard Drinks/Week Comments Yes 0 (1 standard drink = 0.6 oz pur e alcohol) Comments Unknown Sex and Gender Information Value Date Recorded Sex Assigned at Not on file Legal Sex Female 7:21 PM MORTGAGE COUNSELOR Gender Identity Female 03/25/2021 11:48 AM CDT [...] on filedocumented in this encounter Care Teams Glove Sewer Relationship Specialty Start Date End Date John Tvaares MD PCP - General 11/09/16 John Tavares MD PCP - General 05/27/13 11/08/16 Jonathon Najera MD [address] [place] [address] Operational Intelligence Officer Cardiology 05/30/17 documented as of this encounter
--- OUTSIDE RECORDS SUMMARY | 2025-06-24 12:01 | XMS_ITS | Clinical Summary ---
Author Organization [facility] Address [address] [place] [address] Care Team Providers Care Enameler Name Role Phone John Tavares MD Primary Care Provider Jonathon Najera MD Unavailable [phone] Allergies Active Allergy Reactions Criticality Noted Date [...] Encounters Date Type Department Care Team Description 06/17/2025 Orders Only [facility] Cardiology [address] [place] [address] [place] [phone] Jonathon Najera MD Presence of cardiac pacemaker (Primary Dx); SSS (sick sinus syndrome) (HCC); PAF (paroxysmal atrial fibrillation) 06/16/2025 1:00 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 Ancillary Procedure [facility] Cardiology [address] [place] [address] [place] [phone] Presence of cardiac pacemaker (Primary Dx); SSS (sick sinus syndrome) (HCC); PAF (paroxysmal atrial fibrillation); NSVT (nonsustained ventricular tachycardia) (HCC) 06/15/2025 Telephone [facility] Cardiology [address] [place] [address] [place] [phone] Jonathon Najera MD 06/10/2025 11:45 AM CDT Office Visit [facility] Cardiology [address] [place] [address] [place] [phone] Jonathon Najera MD Essential hypertension (Primary Dx); Nonrheumatic aortic valve stenosis; Nonrheumatic mitral valve regurgitation; Presence of cardiac pacemaker; Recurrent chest pain 04/30/2025 11:30 AM CDT - 04/30/2025 1:00 PM CDT Surgery [facility] Cardiac Catheterization Lab [address] [place] [address] Aniceto Mojica MD LEFT HEART CATHETERIZATION WITH CORONARY ANGIOGRAPHY AND WITH OR WITHOUT LEFT VENTRICULOGRAM [id number] 04/30/2025 9:18 AM CDT - 04/30/2025 2:59 PM CDT Hospital Encounter [facility] Cardiac Catheterization Lab [address] [place] [address] Aniceto Mojica MD Angina pectoris, unstable (HCC) Discharge Disposition: Discharge to home or self care 04/06/2025 1:00 PM CDT Office Visit [facility] Cardiology [address] [place] [address] Jonathon Najera MD Presence of cardiac pacemaker (Primary Dx); Nonrheumatic aortic valve stenosis; Essential hypertension; NSVT (nonsustained ventricular tachycardia) (HCC); Nonrheumatic mitral valve regurgitation; Lipid screening; Chest pain, unspecified type 04/06/2025 Telephone [facility] Cardiology [address] [place] [address] Jonathon Najera MD from Last 3 Months Surgical History Surgery Date Site/Laterality Comments FRACTURE SURGERY 1985 HYSTERECTOMY 1979 SPINE SURGERY 2003 OTHER SURGICAL HISTORY modified maze procedure to isolate the SA node INSERT / REPLACE / REMOVE PACEMAKER VENA CAVA FILTER PLACEMENT CARDIAC CATHETERIZATION 04/30/2025 N/A Procedure: LEFT HEART CATHETERIZATION WITH CORONARY ANGIOGRAPHY AND WITH OR WITHOUT LEFT VENTRICULOGRAM [id number]; Surgeon: Aniceto Mojica MD; Location: CARDIAC MEDICAL PATHOLOGIST; Service: Cardiovascular; Laterality: N/A; Medical devices from this surgery are in the Medical Devices section. Medical History Medical History Date Comments Hx Other Medical aasthma, status post hysterectomy, A. 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 Gender Identity Female 03/25/2021 11:48 AM [...] Visit 65+ 2017 Covid-19 Vaccine (5 - 5-2 6 season) 2025 01/01/2022, 06/06/2021, 10/27/2020, Additional history exists Influenza Vaccine (#1) 2025 4, 06/12/2021, 06/08/2019, Additional history exists Fall Risk Assessment 04/30/2026 04/30/2025 Pneumococcal vaccine 65+ Completed 019, 04/12/2019, 06/02/2018, Additional history exists Medical Devices Implanted Type Area Snowboarder Device Identifier Shelf Expiration Date Model / Serial / Lot Pacemaker-06/12 Implanted:06/12 by Cely Coffey MD (Quantity not on file) Pacemaker Chest Medtronic SSS, Afib / / CHRONIC ATRIAL LEAD 996 [employer]il V[employer] System Closure Repair Femoral Artery Suture Mediated Perclose Prostyle 05507-76 - [id number] Implanted:Qty: 1 on 04/30/2025 by Aniceto Mojica MD at [facility] [employer] 02/08/2027 [id number] / / [id number] Procedures Procedure Name Priority Date/Time Associated Diagnosis Comments DEVICE CHECK - IN OFFICE Routine 06/16/2025 12:42 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 SSS (sick sinus syndrome) (HCC) PAF (paroxysmal atrial fibrillation) NSVT (nonsustained ventricular tachycardia) (HCC) LEFT HEART CATHETERIZATION WITH CORONARY ANGIOGRAPHY AND WITH AND WITHOUT LEFT VENTRICULOGRAM Routine 04/30/2025 11:51 AM CDT Angina pectoris, unstable (HCC) MODERATE SEDATION SAME MD JESSICA ADDL 15 MIN [id number] 04/30/2025 10:45 AM CDT Angina pectoris, unstable [...] screening from Last 3 Months Results * DEVICE CHECK - IN OFFICE (06/16/2025 12:42 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) Anatomical Region Laterality Modality Other Narrative 06/17/2025 11:09 AM TELEPHONE LINES REPAIRER Medtronic Dual Pacemaker. Dx; SSS, Afib. DOI 06/22/2016 + RV lead. Chronic atrial lead 04/23/1996. Carelink remote monitoring. Office pacer checks Q1 yr. Supervising MD: Dr Najera. Office AAI<>DDD Pacemaker evaluation demonstrated normal device function. Battery function-2.73V, 19 months remaining battery life to MCKENZIE. Presenting rhythm-APVS. Underlying rhythm-Apaced Vsensed. AP-99.1% CONCEPT ARTIST-1%. 7 mode switch episodes recorded, all <1 min, iegm's suggestive of Atach. 2-VHR episode noted, iegm's suggestive of NSVT, 180 bpm, 6 seconds max duration. Medication: ASA 325 mg, Diltiazem. Ventricular amplitude decreased to 2.0V. See scanned report. Office pacemaker f/u 07/20/2026. Carelink remote f/u 09/22/2025. Cassy Samuel, YAMILEX Jonathon Najera MD CV [facility] Final Result * LEFT HEART CATHETERIZATION WITH CORONARY ANGIOGRAPHY AND WITH AND WITHOUT LEFT VENTRICULOGRAM (04/30/2025 11:51 AM CDT) Anatomical Region Laterality Modality X-Ray Angiograph y Narrative 04/30/2025 12:06 PM CDT CARDIAC CATHETERIZATION REPORT Minnie Serrato IP ENCOUNTER: [id number] Date of Procedure: 04/30/2025 BIRTHDATE: 1950 SR COMMUNITY MANAGER: Aniceto Mojica MD REFERRING PHYSICIAN: Dr. Najera [...] patient. Patient was then brought into the labeling machine operator and was draped and prepped in the [...] * (ABNORMAL) eGFR (04/30/2025 10:24 AM CDT) [facility] eGFR 48(L) >=60 mL/min/1. 73 m2 Comment: [...] MD LAB BLOOD ORDERABLES Final Resul t [facility] [id number] [address] Department [place] [address] * Differential, auto (04/30/2025 10:24 AM CDT) [facility] Neutrophil abs 4.51 1.50 - 6.50 K/cumm Imm gran abs 0.01 0.00 - 0.10 K/cumm [facility] Lymphocyte abs 1.24 0.80 - 3.30 K/cumm [facility] Monocyte abs 0.58 0.20 - 0.80 K/cumm [facility] Eosinophil abs 0.33 0.00 - 0.50 K/cumm [facility] Basophil abs 0.03 0.00 - 0.10 K/cumm [facility] Neutrophil pct 67.4 % [facility] Comment: Interpretive Data Percent cell count reference ranges are not reported, since discordance with absolute values may lead to misinterpretation of CBC data. Current Interpretive Data was last revised on 2017. Imm gran pct 0.1 % [facility] Comment: Interpretive Data Percent cell count reference ranges are not reported, since discordance with absolute values may lead to misinterpretation of CBC data. Current Interpretive Data was last revised on 2017. Lymphocyte pct 18.5 % [facility] Comment: Interpretive Data Percent cell count reference ranges are not reported, since discordance with absolute values may lead to misinterpretation of CBC data. Current Interpretive Data was last revised on 2017. Monocyte pct 8.7 % [facility] Comment: Interpretive Data Percent cell count reference ranges are not reported, since discordance with absolute values may lead to misinterpretation of CBC data. Current Interpretive Data was last revised on 2017. Eosinophil pct 4.9 % [facility] Comment: Interpretive Data Percent cell count reference ranges are not reported, since discordance with absolute values may lead to misinterpretation of CBC data. Current Interpretive Data was last revised on 2017. Basophil pct 0.4 % [facility] Comment: Interpretive Data Percent cell count reference ranges are not reported, since discordance with absolute values may lead to misinterpretation of CBC data. Current Interpretive Data was last revised on 2017. Blood 04/30/2025 10:2 4 AM CDT 04/30/2025 10:26 AM CDT us Aniceto Mojica MD LAB BLOOD ORDERABLES Final Resul t [facility] [id number] Department [place] [address] * (ABNORMAL) CBC with auto differential (04/30/2025 10:24 AM CDT) WBC 6.70 3.80 - 9.90 K/cumm Hgb 12.5 11.9 - 15.5 g/dL [facility] Hct 38.3 35.6 - 45.5 % [facility] Plt 346 150 - 400 K/cumm [facility] MPV 9.2 9.1 - 12.[address] [facility] RBC 3.89(L) 3.90 - 5.20 M/cumm [facility] MCV 98.5(H) 81.3 - 96.4 fL [facility] MCH 32.1 27.1 - 33.3 pg [facility] MCHC 32.6 32.3 - 35.7 g/dL [facility] RDW CV 12.4 11.1 - 14.9 % [facility] RDW SD 44.8 35.7 - 48.[address] [facility] NRBC abs 0.00 0.00 - 0.01 K/cumm [facility] Blood 04/30/2025 10:2 4 AM CDT 04/30/2025 10:26 AM CDT Narrative [facility] CH - 04/30/2025 10:37 AM CDT If most recent labs were drawn prior to 4 AM, draw only prior to initiating procedure. us Aniceto Mojica MD LAB BLOOD ORDERABLES Final Resul t [facility] [id number] [address] Department [place] [address] * (ABNORMAL) Basic metabolic panel (04/30/2025 10:24 AM CDT) Sodium 139 135 - 145 mmol/L Potassium, pl 4.3 3.3 - 4.9 mmol/L [facility] Chloride 100 97 - 110 mmol/L [facility] CO2 23 22 - 32 mmol/L [facility] Anion gap 16(H) 2 - 15 mmol/L [facility] BUN 19 6 - 25 mg/dL [facility] Creatinine 1.20(H) 0.60 - 1.10 mg/dL [facility] Glucose 112 70 - 199 mg/dL [facility] Comment: Interpretive Data Fasting glucose >/= 126 [...] classification and Diagnosis of Diabetes Diabetes Care 202; 46: S19-S40. Current interpretive data was last revised 2022. Calcium 9.9 8.5 - 10.3 mg/dL [facility] Blood 04/30/2025 10:2 4 AM CDT 04/30/2025 10:26 AM CDT Aniceto Mojica MD LAB BLOOD ORDERABLES Final Resul t [facility] [id number] [address] Department [place] [address] * POCT lipid panel (04/06/2025 1:00 PM [...] Result from Last 3 Months Insurance MEDICARE [facility] MEDICARE [facility] Advance Directives For more information, please contact: [phone] Documents on File Type Date Recorded Patient Oven Drier Tender Expl anation ADVANCE DIRECTIVE 04/30/2025 10:19 AM Eugene r of Accelerator Technician-Medical * Full Code (Latest Code Status on File) Date Activated Date Inactivated Comments 04/30/2025 12:40 PM 04/30/2025 6:59 PM Care Teams Enameler Relationship Specialty Start Date End Date John Tavares MD PCP - General 11/09/16 Jonathon Najera MD [address], [address] [place] [id number] Hand Carver Cardiology 05/30/17
--- OUTSIDE RECORDS SUMMARY | 2025-06-24 12:01 | XMS_ITS | Encounter Summary ---
Author Organization [facility] Address [address] [facility] [address] [place] [id number] Care Team Providers Care Reeling Machine Operator Name Role Phone John Tavares MD Primary Care Provider [phone] Jonathon Najera MD Unavailable [phone] Encounter Details Date Type Department Care Team (Late st Contact Info) Description 11/22/2016 Orders Only [facility] Provider, MD [address]ih[address] [phone] Social History Tobacco Use Types Packs/Day Years Used Date Smoking Tobacco: Former Cigarettes Q uit: 08/12/1997 Alcohol Use Standard Drinks/Week Comments Yes 0 (1 standard drink = 0.6 oz pur e alcohol) Comments Unknown Sex and Gender Information Value Date Recorded Sex Assigned at Not on file 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
== END 2025-06-24 10:56 | disposition home or self-care (01) ==
PROVIDERS: PCP Family Medicine; Visit Provider Internal Medicine Cardiovascular Disease
DX: R07.9 Chest pain, unspecified (principal)
CPT/HCPCS: 71275; Q9967